=== PATIENT | female | born 1940 | race Caucasian/White ===

== ENCOUNTER 2016-07-29 09:24 | Inpatient (IN) | payer MEDICARE ==
[~2016-07-29] VITALS: Ht 157.5 cm; Wt 82.0 kg
[2016-07-29] VITALS (18 sets, daily range): BP systolic 133–245; BP diastolic 60–102; PULSE 74–90; RESP 15–24; TEMP 98.7–101.4; O2SAT 94–99
[~2016-07-29 09:24] MED LIST: ASAC400T PO; BABY81CH PO; DILT180C PO; FISH100020 PO; GLUCTAB PO; HYDR-2768 PO; LACTCAP7 PO; LISI-363 PO; LOMO2.5T PO; MEVA40TA PO; MULT-65 PO; VENTAER INH
[2016-07-29] MEDS ORDERED: LOVA20TA PO (09:50)
[2016-07-29] MEDS ORDERED: ASPI-110 PO (09:50)
[2016-07-29] MEDS ORDERED: LISI-515 PO (09:50)
[2016-07-29] MEDS ORDERED: PROP20TA3 PO (09:50)
[2016-07-29] MEDS ORDERED: METF500T PO (09:50)
[2016-07-29] MEDS ORDERED: UMEC1AER INH (09:50)
[2016-07-29] MEDS ORDERED: BACI1TAB2 (09:50)
[2016-07-29] MEDS ORDERED: VENTAER INH (09:50)
[2016-07-29] MEDS ORDERED: HYDR25TA5 PO (09:50)
[2016-07-29] MEDS ORDERED: DIPH2.5T14 PO (09:50)
[2016-07-29] MEDS ORDERED: SYMB160A INH (09:50)
[2016-07-29] MEDS ORDERED: PROCHLORPERAZINE INJ 10 MG/2 ML VIAL IVP ONE (10:00)
[2016-07-29] MEDS ORDERED: SODIUM CHLORIDE 0.9% FLUSH 10 ML FLUSH IVF PRN (10:00)
[2016-07-29] MEDS ORDERED: diphenhydrAMINE HCL 50 MG/ML VIAL IVP ONE (10:00)
[2016-07-29] MEDS ORDERED: ACETAMINOPHEN 325 MG TAB PO ONE (10:00)
[2016-07-29 10:17] LABS: AUTOMATED NEUTROPHIL # 17.1 TH/MM3 (1.8-7.7); BASOPHIL # 0.3 TH/MM3 (0-0.2); BASOPHIL % 1.6 % (0.0-2.0); EOSINOPHIL # 0.2 TH/MM3 (0-0.4); EOSINOPHIL % 0.9 % (0.0-4.0); HEMATOCRIT 45.9 % (35.0-46.0); LYMPH % 9.5 % (9.0-44.0); MEAN CELL VOLUME 84.8 FL (80.0-100.0); MEAN CORPUSCULAR HEMOGLOBIN 27.3 PG (27.0-34.0); MEAN CORPUSCULAR HGB CONC 32.2 % (32.0-36.0); MONO % 5.8 % (0.0-8.0); NEUT % 82.2 % (16.0-70.0); PLATELET COUNT 350 TH/MM3 (150-450); RED BLOOD COUNT 5.42 MIL/MM3 (4.00-5.30); WHITE BLOOD COUNT 20.8 TH/MM3 (4.0-11.0)
[2016-07-29 10:20] LABS: HEMO FLAGS DIFF FINAL
[2016-07-29 10:27] LABS: CHLORIDE 99 MEQ/L (98-107); POTASSIUM 3.7 MEQ/L (3.5-5.1); SODIUM (NA) 138 MEQ/L (136-145)
[2016-07-29 10:31] LABS: ANION GAP 11 MEQ/L (5-15); APTT (PATIENT) 22.2 SEC (24.3-30.1); PROTHROMBIN TIME - PATIENT 10.5 SEC (9.8-11.6)
[2016-07-29 10:32] LABS: BLOOD UREA NITROGEN 15 MG/DL (7-18)
[2016-07-29 10:34] LABS: ALT (GPT) 25 U/L (10-53); AST (GOT) 14 U/L (15-37)
[2016-07-29 10:35] LABS: GLOMERULAR FILTRATION RATE 81 ML/MIN (>89)
[2016-07-29 10:36] LABS: TOTAL BILIRUBIN ADULT 0.5 MG/DL (0.2-1.0)
[2016-07-29 10:37] LABS: ALKALINE PHOSPHATASE 102 U/L (45-117)
--- NOTE | 2016-07-29 11:02 | PD ---
HPI Chief Complaint: Headache Time Seen by Provider: 09:34 Travel History International Travel<30 days: No Contact w/Intl Traveler<30days: No Traveled to known affect area: No History of Present Illness HPI 76 yo F arrives from home with 2/2 decreased activity for two days of so along with severe R retroorbital headache, onset at rest with throbbing quality, patient also complains of neck pain mild. Subjective fever reported along with multiple episodes vomiting. Pain is worse with bending over and lifting. Pt has hx headaches however none for at least two years. No LOC, numbness/weakness/tingling. Pt denies photophobia/phonophobia. PFSH Past Medical History Heart Rhythm Problems: Yes (has felt a "flip-flopping" of heart in past, not enough to bring in to ED) Cancer: No Cardiac Catheterization: No Cardiovascular Problems: Yes (TACHYARRHYTHMIA) High Cholesterol: Yes (high cholesterol) Congestive Heart Failure: No Cerebrovascular Accident: Yes (NO RESIDUAL WEAKNESS) Diabetes: Yes Patient Takes Glucophage: Yes Diminished Hearing: No Endocrine: Yes Gastrointestinal Disorders: Yes (IBS) Genitourinary: No Hepatitis: No Hiatal Hernia: Yes Hypertension: Yes Immune Disorder: No Musculoskeletal: No Neurologic: Yes (STROKE HX) Psychiatric: Yes (VERY CLAUSTRAPHOBIC, ANXIETY) Reproductive: No Respiratory: Yes (ASTHMA) Thyroid Disease: No Tetanus Vaccination: > 5 Years Influenza Vaccination: Yes ?: Not LMP: RADIO RECORDER Past Surgical History AICD: No Coronary Artery Bypass Graft: No Eye Surgery: Yes (LEFT CATARACT ) Gynecologic Surgery: Yes (HYSTERECTOMY) Hysterectomy: Yes Joint Replacement: No Pacemaker: No Family History Family Myocardial Infarction: Yes (mother) Social History Alcohol Use: No Tobacco Use: No (quit "20 years ago") Substance Use: No Allergies-Medications (Allergen,Severity, Reaction): Coded Allergies: Codeine (Verified Adverse Reaction, Unknown, NAUSEA, 07/29/16) Reported Meds & Prescriptions Reported Meds & Active Scripts Active Reported Anoro Ellipta Inh (Umeclidinium/Vilanterol) 62.5-25 Mcg/Act Aero 1 Puff INH DAILY Propranolol (Propranolol HCl) 20 Mg Tab 20 Mg PO Q12HR Symbicort Inh (Budesonide/Formoterol Fumarate) 160-4.5 Mcg/Act Aero 2 Puff INH Q12HR Ventolin Hfa 18 GM Inh (Albuterol Sulfate) 90 Mcg/Act Aer 2 Puff INH Q4-6H PRN Probiotic (Bacillus Coagulans) 1 Each Tab.chew Hydrochlorothiazide 25 Mg Tab 25 Mg PO DAILY Lisinopril 20 Mg Tab 20 Mg PO BID Lovastatin 20 Mg Tab 20 Mg PO BID Aspirin 81 (Aspirin) 81 Mg Tabdr 81 Mg PO DAILY Diphenoxylate-Atropine 2.5-0.025 Mg Tab 1 Tab PO Q8HR PRN Metformin (Metformin HCl) 500 Mg Tab 500 Mg PO BIDPC With meals Review of Systems Except as stated in HPI: all other systems reviewed are Neg Physical Exam Narrative GENERAL: 76 yo F, WNWD, mild distress, normal memory and mentation SKIN: Warm and dry. HEAD: Atraumatic. Normocephalic. EYES: Pupils equal and round. No scleral icterus. No injection or drainage. ENT: No nasal bleeding or discharge. Mucous membranes pink and moist. NECK: Trachea midline. No JVD. Normal ROM of the neck. CARDIOVASCULAR: Regular rate and rhythm. RESPIRATORY: No accessory muscle use. Clear to auscultation. Breath sounds equal bilaterally. GASTROINTESTINAL: Abdomen soft, non-tender, nondistended. Hepatic and splenic margins not palpable. MUSCULOSKELETAL: Extremities without clubbing, cyanosis, or edema. No obvious deformities. NEUROLOGICAL: Awake and alert. No obvious cranial nerve deficits. Motor grossly within normal limits. Five out of 5 muscle strength in the arms and legs. Normal speech. PSYCHIATRIC: Appropriate mood and affect; insight and judgment normal. Data Data Last Documented VS Vital Signs Date Time Temp Pulse Resp B/P Pulse Ox O2 Delivery O2 Flow Rate FiO2 07/29/16 14:35 101.4 90 16 170/61 96 Nasal Cannula 2 VS reviewed Orders Complete Blood Count With Diff (07/29/16 09:47) Comprehensive Metabolic Panel (07/29/16 09:47) Westergren Sedimentation Rate (07/29/16 09:47) C-Reactive Protein (Crp) (07/29/16 09:47) Prothrombin Time / Inr (Pt) (07/29/16 09:47) Act Partial Throm Time (Ptt) (07/29/16 09:47) Csf Cell Count + Differential (07/29/16 09:47) Glucose, Csf (07/29/16 09:47) Total Protein, Csf (07/29/16 09:47) Ct Brain W/O Iv Contrast(Rout) (07/29/16 09:47) Ecg Monitoring (07/29/16 09:47) Iv Access Insert/Monitor (07/29/16 09:47) Oximetry (07/29/16 09:47) Sodium Chloride 0.9% Flush (Ns Flush) (07/29/16 10:00) Acetaminophen (Tylenol) (07/29/16 10:00) Prochlorperazine Inj (Compazine Inj) (07/29/16 10:00) Diphenhydramine Inj (Benadryl Inj) (07/29/16 10:00) Cta Brain W Iv Contrast W 3d (07/29/16 ) Cta Neck W Iv Contrast W 3d (07/29/16 ) ^ Straight Catheter (07/29/16 10:40) Urinalysis - C+S If Indicated (07/29/16 11:22) Iohexol 350 Inj (Omnipaque 350 Inj) (07/29/16 11:25) Nicardipine Inj (Cardene Inj) (07/29/16 11:30) Ceftriaxone Inj (Rocephin Inj) (07/29/16 13:00) Vancomycin Inj (Vancomycin Inj) (07/29/16 13:00) Csf Culture And Gram Stain (07/29/16 13:14) Acyclovir Inj (Zovirax Inj) (07/29/16 14:30) Blood Culture (07/29/16 14:28) Admit Order (Ed Use Only) (07/29/16 14:43) Labs Laboratory Tests Test 07/29/16 07/29/16 10:05 11:25 White Blood Count 20.8 TH/MM3 Red Blood Count 5.42 MIL/MM3 Hemoglobin 14.8 GM/DL Hematocrit 45.9 % Mean Corpuscular Volume 84.8 FL Mean Corpuscular Hemoglobin 27.3 PG Mean Corpuscular Hemoglobin 32.2 % Concent Red Cell Distribution Width 14.0 % Platelet Count 350 TH/MM3 Mean Platelet Volume 8.3 FL Neutrophils (%) (Auto) 82.2 % Lymphocytes (%) (Auto) 9.5 % Monocytes (%) (Auto) 5.8 % Eosinophils (%) (Auto) 0.9 % Basophils (%) (Auto) 1.6 % Neutrophils # (Auto) 17.1 TH/MM3 Lymphocytes # (Auto) 2.0 TH/MM3 Monocytes # (Auto) 1.2 TH/MM3 Eosinophils # (Auto) 0.2 TH/MM3 Basophils # (Auto) 0.3 TH/MM3 CBC Comment DIFF FINAL Differential Comment Erythrocyte Sedimentation Rate 4 mm/hr Prothrombin Time 10.5 SEC Prothromb Time International 1.0 RATIO Ratio Activated Partial 22.2 SEC Thromboplast Time Sodium Level 138 MEQ/L Potassium Level 3.7 MEQ/L Chloride Level 99 MEQ/L Carbon Dioxide Level 28.0 MEQ/L Anion Gap 11 MEQ/L Blood Urea Nitrogen 15 MG/DL Creatinine 0.70 MG/DL Estimat Glomerular Filtration 81 ML/MIN Rate Random Glucose 174 MG/DL Calcium Level 9.4 MG/DL Total Bilirubin 0.5 MG/DL Aspartate Amino Transf 14 U/L (AST/SGOT) Alanine Aminotransferase 25 U/L (ALT/SGPT) Alkaline Phosphatase 102 U/L C-Reactive Protein 0.29 MG/DL Total Protein 7.6 GM/DL Albumin 4.0 GM/DL Urine Collection Type CATH Urine Color YELLOW Urine Turbidity CLEAR Urine pH 6.5 Urine Specific [place] 1.010 Urine Protein NEG mg/dL Urine Glucose (UA) NEG mg/dL Urine Ketones TRACE mg/dL Urine Occult Blood SMALL Urine Nitrite NEG Urine Bilirubin NEG Urine Leukocyte Esterase NEG Urine RBC 4-9 /hpf Urine WBC 0-2 /hpf Microscopic Urinalysis Comment CATH-CULT NOT IND Urine Collection Time 11:25 MDM Medical Decision Making Medical Screen Exam Complete: Yes Emergency Medical Condition: Yes Medical Record Reviewed: Yes Differential Diagnosis Migraine, dehydration, sepsis, meningitis, ICH, aneurysm, UTI Narrative Course CBC & BMP Diagram 07/29/16 10:05 Neutrophils 82% ESR 4 LFTs normal CRP 0.29 INR 1.0 UA: no UTI Last [address] 07/29/16 0947 Signed Impressions: Service Date/Time: Friday, July 29, 2016 10:51 - CONCLUSION: No acute intracranial findings. Juan Jose Kessler MD Neck CTA 07/29/16 0000 Signed Impressions: Service Date/Time: Friday, July 29, 2016 10:56 - CONCLUSION: 1. Diffuse atherosclerotic disease. 2. Moderate grade stenosis of the left internal carotid artery at the carotid bulb and mild stenosis of the right internal carotid artery at the carotid bulb. 3. Right internal carotid artery courses medially into the submucosal region of the retropharyngeal soft tissues. Juan Jose Kessler MD Head CTA 07/29/16 0000 Signed Impressions: Service Date/Time: Friday, July 29, 2016 10:56 - CONCLUSION: Brain CTA within normal limits. Juan Jose Kessler MD Rocephin and vancomycin acyclovir started. Blood cultures obtained. A lumbar puncture was attempted multiple times unsuccessfully. Invasive radiology was notified and they will perform one today. Case discussed with Dr. Duff of infectious disease. Case discussed with Dr. De Jesus and Dr. Lynos for [facility]. Pt will be placed in IMC. Fever measured at approx 245pm, 101.4 rectal. Tylenol ordered. 1516 HR 88, RR 16, 156/79, answers questions and follows commands Critical Care Narrative Aggregate critical care time was 50 minutes. Time to perform other separately billable procedures was not included in the critical care time. My time did not include minutes spent treating any other patients simultaneously or on activities that did not directly contribute to the patient's treatment. The services I provided to this patient were to treat and/or prevent clinically significant deterioration that could result in: Permanent neurologic injury, multiorgan failure I provided critical care services requiring my management, as noted below: Chart data review, documentation time, medication orders and management, vital sign assessments/reviewing monitor data, ordering and reviewing lab tests, ordering and interpreting/reviewing x-rays and diagnostic studies, care of the patient and discussion of the patient with the admitting physicians. Diagnosis Primary Impression: MORELAND (headache) Qualified Code: R51 - Nonintractable headache, unspecified chronicity pattern , unspecified headache type Additional Impressions: Altered mental status Qualified Code: R41.82 - Altered mental status, unspecified altered mental status type Fever Qualified Code: R50.9 - Fever, unspecified fever cause Admitting Information Admitting Physician Requests: Timoteo Colin MD Jul 29, 2016 11:02
[2016-07-29] MEDS ORDERED: IOHEXOL 350 MG/ML 10 ML VIAL (for RAD DIAG) IV ONE (11:25)
[2016-07-29 11:30] LABS: BLOOD, URINE SMALL (NEG); GLUCOSE,URINE NEG (NEG); KETONE, URINE TRACE mg/dL (NEG); NITRITE,URINE NEG (NEG); PH, URINE 6.5 (5.0-8.5)
[2016-07-29 11:34] LABS: COMMENT (UR) CATH-CULT NOT IND; CULTURE IF INDICATED CATH CULTURE NOT IND; METHOD OF COLLECTION CATH; URINE COLOR YELLOW (YELLW/STRAW); WBC, URINE 0-2 /hpf (0-5)
--- NOTE | 2016-07-29 11:45 | RADHPO ---
EXAM DATE/TIME: 07/29/2016 10:51 [facility] COMPARISON: No previous studies available for comparison. INDICATIONS : Throbbing headache. RADIATION DOSE: 35.16 CTDIvol (mGy) MEDICAL HISTORY : Cardiovascular disease. Hypercholesterolemia. Asthma, TIA SURGICAL HISTORY : Hysterectomy. ENCOUNTER: Initial ACUITY: 2 days PAIN SCALE: Non-responsive LOCATION: cranial TECHNIQUE: Multiple contiguous axial images were obtained of the head. Using automated exposure control and adj ustment of the mA and/or kV according to patient size, radiation dose was kept as low as reasonably a chievable to obtain optimal diagnostic quality images. FINDINGS: CEREBRUM: Periventricular white matter hypodensity indicating chronic ischemic change. The ventricles are octavio l for age. No evidence of midline shift, mass lesion, hemorrhage or acute infarction. No extra-axia l fluid collections are seen. POSTERIOR FOSSA: The cerebellum and brainstem are intact. The 4th ventricle is midline. The cerebellopontine angle i s unremarkable. EXTRACRANIAL: The visualized portion of the orbits is intact. SKULL: The calvaria is intact. No evidence of skull fracture. CONCLUSION: No acute intracranial findings. Juan Jose Kessler MD on July 29, 2016 at 11:42 Board Certified Radiologist. This report was verified electronically.
[2016-07-29] MEDS: niCARdipine INJ 25 MG in SODIUM CHLOR 0.9% 250 ML INJ 250 ML IV SCH ×2 (11:50→23:09)
--- NOTE | 2016-07-29 12:12 | RADHPO ---
EXAM DATE/TIME: 07/29/2016 10:56 [facility] COMPARISON: No previous studies available for comparison. INDICATIONS : Throbbing headache for 2 days with nausea. IV CONTRAST: 99 cc Omnipaque 350 (iohexol) IV ; Cumulative dose for multiple exams. RADIATION DOSE: 43.07 CTDIvol (mGy) ; Combined studies MEDICAL HISTORY : Hypercholesterolemia. Cardiovascular disease Asthma, TIA SURGICAL HISTORY : Hysterectomy. ENCOUNTER: Initial ACUITY: 2 days PAIN SCALE: Non-responsive LOCATION: cranial TECHNIQUE: Volumetric scanning was performed using a multi-row detector CT scanner. The data was post processed with a variety of visualization algorithms including full volume maximum intensity projection, multi -planar sliding thin slab reformation, curved planar reformation, and surface rendering techniques. Using automated exposure control and adjustment of the mA and/or kV according to patient size, radiat ion dose was kept as low as reasonably achievable to obtain optimal diagnostic quality images. FINDINGS: There is excellent visualization of the major intracranial arteries out to the second-order branch ve ssels. There is no evidence for aneurysm, vessel truncation or stenosis, and no evidence for vascula r malformation. CONCLUSION: Brain CTA within normal limits. Juan Jose Kessler MD on July 29, 2016 at 12:08 Board Certified Radiologist. This report was verified electronically.
[2016-07-29] MEDS ORDERED: VANCOMYCIN INJ 1,750 MG in SODIUM CHLORID 0.9% 500 ML INJ 500 ML IV ONE (13:00)
[2016-07-29] MEDS ORDERED: cefTRIAXone INJ 2,000 MG in SODIUM CHLORIDE 0.9% INJ 100 ML IV ONE (13:00)
--- NOTE | 2016-07-29 13:15 | RADHPO ---
EXAM DATE/TIME: 07/29/2016 10:56 [facility] COMPARISON: No previous studies available for comparison. INDICATIONS : Throbbing headache with nausea for 2 days IV CONTRAST: 99 cc Omnipaque 350 (iohexol) IV ; Cumulative dose for multiple exams. RADIATION DOSE: 43.07 CTDIvol (mGy) ; Combined studies MEDICAL HISTORY : Hypercholesterolemia. Cardiovascular disease Asthma, TIA SURGICAL HISTORY : Hysterectomy. ENCOUNTER: Initial ACUITY: 2 days PAIN SCALE: Non-responsive LOCATION: Bilateral cranial Elevated flow velocities and ICA/CCA ratios have been found to correlate with increased degrees of vessel stenosis, calculated as percentage of diameter relative to a normal segment of distal ICA/CCA. TECHNIQUE: Volumetric scanning was performed using a multirow detector CT scanner. The data was post processed with a variety of visualization algorithms including full-volume maximum intensity projection, multip lanar sliding thin-slab reformation, curved-planar reformation, and surface-rendering techniques. Us ing automated exposure control and adjustment of the mA and/or kV according to patient size, radiatio n dose was kept as low as reasonably achievable to obtain optimal diagnostic quality images. FINDINGS: AORTIC ARCH: Diffuse atherosclerotic disease of the aortic arch. No high-grade stenosis. RIGHT CAROTID: Calcified plaque at the right carotid bulb resulting in mild stenosis measuring approximately 30%. Ot herwise widely patent. The right internal carotid artery is tortuous and extends medially into the aviles perficial retropharyngeal soft tissues. LEFT CAROTID: Calcified plaque at the left carotid bulb resulting in moderate grade stenosis of the proximal internet researcher al carotid artery measuring approximately 50-60%. VERTEBRALS: The vertebral arteries have a symmetric diameter. No stenotic lesions are seen. CONCLUSION: 1. Diffuse atherosclerotic disease. 2. Moderate grade stenosis of the left internal carotid artery at the carotid bulb and mild stenosis of the right internal carotid artery at the carotid bulb. 3. Right internal carotid artery courses medially into the submucosal region of the retropharyngeal s oft tissues. Juan Jose Kessler MD on July 29, 2016 at 13:04 Board Certified Radiologist. This report was verified electronically.
[2016-07-29] MEDS ORDERED: ACYCLOVIR INJ 800 MG in SODIUM CHLORIDE 0.9% INJ 150 ML IV ONE (14:30)
[2016-07-29] MEDS ORDERED: ACETAMINOPHEN 650 MG SUPP RECTAL ONE (15:15)
--- NOTE | 2016-07-29 18:14 | HHI.HP ---
HPI Service [facility] Hospitalists Primary Care Physician Marques لاعلي MD Admission Diagnosis MORELAND, AMS Chief Complaint: MORELAND/fever/AMS Travel History International Travel<30 Days: No Contact w/Intl Traveler <30 Da: No Traveled to Known Affected Are: No History of Present Illness Pt is 76 yo dm/htn/copd. Presented with 1 day hx of "sinus/cold sx's", fever, right retroorbital h/a, vomiting, and intermittent confusion/lethargy. She presented to [place] ED with fever, leukocytosis. CT imaging negative for bleed. ED spoke to ID and advised LP..Failed attempts at P.O. ED but emperic antibiotics/antivirals given, cardene gtt initiated...pt transferred here for LP today with IR. ...currently pt more awake/alert than described to me by ED...?abx Review of Systems Other right retroorbital h/a vomiting confusion fever sinus congestion Past Family Social History Past Medical History htn dm copd remote cva Reported Medications Anoro Ellipta Inh (Umeclidinium/Vilanterol) 62.5-25 Mcg/Act Aero 1 Puff INH DAILY Propranolol (Propranolol HCl) 20 Mg Tab 20 Mg PO Q12HR Ventolin Hfa 18 GM Inh (Albuterol Sulfate) 90 Mcg/Act Aer 2 Puff INH Q4-6H PRN Probiotic (Bacillus Coagulans) 1 Each Tab.chew Hydrochlorothiazide 25 Mg Tab 25 Mg PO DAILY Lisinopril 20 Mg Tab 20 Mg PO BID Lovastatin 20 Mg Tab 20 Mg PO BID Aspirin 81 (Aspirin) 81 Mg Tabdr 81 Mg PO DAILY Diphenoxylate-Atropine 2.5-0.025 Mg Tab 1 Tab PO Q8HR PRN Metformin (Metformin HCl) 500 Mg Tab 500 Mg PO BIDPC With meals Allergies: Coded Allergies: Codeine (Verified Adverse Reaction, Unknown, NAUSEA, 07/29/16) Physical Exam Vital Signs currently oriented neck supple no photophobia heart reg lung cta abd s/nt ext no edema doug carotid bruit Vital Signs Date Time Temp Pulse Resp B/P Pulse Ox O2 Delivery O2 Flow Rate FiO2 07/29/16 17:12 89 16 156/64 96 Nasal Cannula 2 07/29/16 16:15 16 07/29/16 16:15 100.0 88 16 164/72 96 Nasal Cannula 2 07/29/16 15:16 88 16 156/79 97 Nasal Cannula 2 07/29/16 14:35 101.4 90 16 170/61 96 Nasal Cannula 2 07/29/16 13:41 89 16 166/60 96 Nasal Cannula 2 07/29/16 12:51 90 16 170/61 96 Nasal Cannula 2 07/29/16 12:23 86 18 159/73 95 Nasal Cannula 2 07/29/16 12:05 18 175/76 96 Nasal Cannula 2 07/29/16 11:30 81 16 245/102 97 Nasal Cannula 2 07/29/16 11:23 16 07/29/16 10:47 16 95 Nasal Cannula 2 07/29/16 10:32 84 18 142/102 94 Room Air 07/29/16 10:24 18 94 Room Air 07/29/16 09:26 98.7 74 15 133/100 99 Laboratory Laboratory Tests Test 07/29/16 07/29/16 10:05 11:25 White Blood Count 20.8 Red Blood Count 5.42 Hemoglobin 14.8 Hematocrit 45.9 Mean Corpuscular Volume 84.8 Mean Corpuscular Hemoglobin 27.3 Mean Corpuscular Hemoglobin 32.2 Concent Red Cell Distribution Width 14.0 Platelet Count 350 Mean Platelet Volume 8.3 Neutrophils (%) (Auto) 82.2 Lymphocytes (%) (Auto) 9.5 Monocytes (%) (Auto) 5.8 Eosinophils (%) (Auto) 0.9 Basophils (%) (Auto) 1.6 Neutrophils # (Auto) 17.1 Lymphocytes # (Auto) 2.0 Monocytes # (Auto) 1.2 Eosinophils # (Auto) 0.2 Basophils # (Auto) 0.3 CBC Comment DIFF FINAL Differential Comment Erythrocyte Sedimentation Rate 4 Prothrombin Time 10.5 Prothromb Time International 1.0 Ratio Activated Partial 22.2 Thromboplast Time Sodium Level 138 Potassium Level 3.7 Chloride Level 99 Carbon Dioxide Level 28.0 Anion Gap 11 Blood Urea Nitrogen 15 Creatinine 0.70 Estimat Glomerular Filtration 81 Rate Random Glucose 174 Calcium Level 9.4 Total Bilirubin 0.5 Aspartate Amino Transf 14 (AST/SGOT) Alanine Aminotransferase 25 (ALT/SGPT) Alkaline Phosphatase 102 C-Reactive Protein 0.29 Total Protein 7.6 Albumin 4.0 Urine Collection Type CATH Urine Color YELLOW Urine Turbidity CLEAR Urine pH 6.5 Urine Specific [place] 1.010 Urine Protein NEG Urine Glucose (UA) NEG Urine Ketones TRACE Urine Occult Blood SMALL Urine Nitrite NEG Urine Bilirubin NEG Urine Leukocyte Esterase NEG Urine RBC 4-9 Urine WBC 0-2 Microscopic Urinalysis Comment CATH-CULT NOT IND Urine Collection Time 11:25 Date/Time Procedure Status Source Growth 07/29/16 14:40 Aerobic Blood Culture Received Blood Peripheral Pending 07/29/16 14:40 Anaerobic Blood Culture Received Blood Peripheral Pending Result Diagram: 07/29/16 1005 07/29/16 1005 Assessment and Plan Problem List: (1) Fever Status: Acute Plan: Pt is 76 yo dm/htn/copd. Presented with 1 day hx of "sinus/cold sx's", fever, right retroorbital h/a, vomiting, and intermittent confusion/lethargy. She presented to [place] ED with fever, leukocytosis. CT imaging negative for bleed. ED spoke to ID and advised LP..Failed attempts at P.O. ED but emperic antibiotics/antivirals given, cardene gtt initiated...pt transfer here for LP today with IR. carotid dz noted. ...currently pt more awake/alert than described to me by ED...?abx consult neuro/ID telemetry LP by IR. send for gs/cx,cell count/diff,hsv pcr, cryptococcal ag, opening pressure, glucose,protein. wean cardene drip to off. home po meds resumed and prn ordered dvt prophylaxis cont home meds as appropriate. (2) Altered mental status Status: Acute Plan: see above (3) MORELAND (headache) Status: Acute Plan: see above (4) HTN (hypertension) Status: Acute Plan: see above (5) DM (diabetes mellitus) Status: Chronic Plan: ssi. hold oha (6) COPD (chronic obstructive pulmonary disease) Status: Chronic Plan: home inhaler. willy prn Physician Certification 2 Midnight Certification Type: Admission for Inpatient Services Order for Inpatient Services 3The services are ordered in accordance with Medicare regulations or non- Medicare payer requirements, as applicable. In the case of services not specified as inpatient-only, they are appropriately provided as inpatient services in accordance with the 2-midnight benchmark. Estimated LOS (days): 3 3 days is the estimated time the patient will need to remain in the hospital, assuming treatment plan goals are met and no additional complications. Post-Hospital Plan: Home Problem Qualifiers (1) Fever: Qualified Code: R50.9 - Fever, unspecified fever cause (2) Altered mental status: Qualified Code: R41.82 - Altered mental status, unspecified altered mental status type (3) MORELAND (headache): Qualified Code: R51 - Nonintractable headache, unspecified chronicity pattern, unspecified headache type Marlo Lyons MD Jul 29, 2016 18:14
[2016-07-29] MEDS ORDERED: ONDANSETRON HCL 4 MG/2 ML VIAL IV PUSH PRN (18:15)
[2016-07-29] MEDS ORDERED: ACETAMINOPHEN 325 MG TAB PO PRN (18:15)
[2016-07-29] MEDS ORDERED: RESP: ALBUTEROL 2.5 MG/IPRATROPIUM 0.5 MG NEB (PRN) NEB (18:30)
--- NOTE | 2016-07-29 19:31 | PD.RAD ---
Post Procedure Progress Note Pre Procedure Diagnosis: (1) Altered mental status Post Procedure Diagnosis: (1) Altered mental status Procedure Date: Jul 29, 2016 Supervising Radiologist: Otoniel Falcon JR Proceduralist/Assist: Ira Jenkins RT(R), Susanne Lacy RT(R)(CV) Anesthesia: Local Plan of Activity Patient to Unit: Nursing Unit Patient Condition: Good See PACS Report for procedural detail/treatment Spinal Procedure Lumbar Puncture L2-L3 Fluid Removal (CCs): 11 Fluid Description: Clear Puncture Time: 19:22 Findings: Opening pressure: 10 cmH20 Jr. Ezekiel,Otoniel Preciado MD Jul 29, 2016 19:31
--- NOTE | 2016-07-29 19:48 | RADRPT ---
EXAM DATE/TIME: 07/29/2016 19:33 [facility] COMPARISON: No previous studies available for comparison. INDICATIONS : AMS.Headaches MEDICAL HISTORY : 1.Hx of stroke no residuals 2. headache 3.Hiatal hernia 4. HTN 5. ASTHMA SURGICAL HISTORY : 1. Cataract 2. Hysterectomy ENCOUNTER: Initial ACUITY: 2 days PAIN SCORE: 0/10 LUMBAR PUNCTURE TIME: 1922 hours FLUORO TIME: 1.6 minutes 0 ACCESS LEVEL: L2-3 OPENING PRESSURE: 10cm of water Not requested. FLUID: 11 cc of clear CSF was collected and sent to the laboratory for analysis. PROCEDURE : 1. Fluoroscopic guided lumbar puncture. 2. Recording of opening pressure. The risks, benefits and alternatives to the procedure were explained and verbal and written consent w as obtained. The site was prepped in sterile fashion. Full sterile technique was used, including ca p, mask, sterile gloves and gown and a large sterile sheet. Hand hygiene and 2% chlorhexidine and/or betadine/alcohol prep was utilized per protocol for cutaneous antisepsis. The skin and subcutaneous tissues were infiltrated with local anesthetic solution. With fluoroscopic guidance the lumbar thecal sac was punctured at the above level described above and the opening pressure was recorded. The above described fluid was removed without difficulty. The patient tolerated the procedure well and there were no complications. CONCLUSION: Uncomplicated fluoroscopically guided lumbar puncture with pressures as above. Otoniel Falcon Jr., MD on July 29, 2016 at 19:46 Board Certified Radiologist. This report was verified electronically.
[2016-07-29] MEDS: INSULIN ASPART SUPPLEMENTAL SCALE SQ SCH (21:00)
[2016-07-29] MEDS: PROPRANOLOL HCL 20 MG TAB PO SCH (21:23)
[2016-07-29] MEDS: LISINOPRIL 20 MG TAB PO SCH (21:23)
[2016-07-29] MEDS: PRAVASTATIN SOD 20 MG TAB PO SCH (21:23)
[2016-07-29] MEDS ORDERED: Vancomycin Consult Pharmacy 1 EA OTHER SCH (21:30)
[2016-07-29 21:40] LABS: CSF LYMPHOCYTES 19 %; CSF MONOCYTES 7 %; CSF NEUTROPHILS 74 %; GROSS BLOOD TUBE #1 0 (0); GROSS BLOOD TUBE #2 0 (0); GROSS BLOOD TUBE #3 0 (0); GROSS BLOOD TUBE #4 0 (0); SUPERNATE COLOR TUBE #1 CLEAR (CLEAR); SUPERNATE COLOR TUBE #2 CLEAR (CLEAR); SUPERNATE COLOR TUBE #3 CLEAR (CLEAR); SUPERNATE COLOR TUBE #4 CLEAR (CLEAR); VOLUME TUBE # 3 2.5 ML; WBC TUBE #4 4 /MM3 (0-10)
[2016-07-30] VITALS (13 sets, daily range): BP systolic 98–145; BP diastolic 50–71; PULSE 53–65; RESP 15–35; TEMP 97.7–99.2; O2SAT 90–98
[2016-07-30] MEDS ORDERED: cefTRIAXone INJ 2,000 MG in SODIUM CHLORIDE 0.9% INJ 100 ML IV SCH (02:00)
[2016-07-30] MEDS ORDERED: CHLORHEXIDINE GLUCONATE 2 % 1 PACK (2 CLOTHS)(extra cloths) TOPICAL PRN (05:15)
[2016-07-30 06:32] LABS: BASOPHIL % 0.2 % (0.0-2.0); EOSINOPHIL % 0.2 % (0.0-4.0); HEMATOCRIT 39.4 % (35.0-46.0); HEMO FLAGS DIFF FINAL; LYMPH % 17.7 % (9.0-44.0); LYMPHOCYTE # 2.8 TH/MM3 (1.0-4.8); MEAN CELL VOLUME 84.4 FL (80.0-100.0); MEAN CORPUSCULAR HEMOGLOBIN 27.4 PG (27.0-34.0); MEAN CORPUSCULAR HGB CONC 32.5 % (32.0-36.0); MONO % 11.1 % (0.0-8.0); NEUT % 70.8 % (16.0-70.0); PLATELET COUNT 285 TH/MM3 (150-450); RED BLOOD COUNT 4.67 MIL/MM3 (4.00-5.30); RED CELL DISTRIBUTION WIDTH 14.6 % (11.6-17.2); WHITE BLOOD COUNT 15.6 TH/MM3 (4.0-11.0)
[2016-07-30 06:57] LABS: POTASSIUM 3.4 MEQ/L (3.5-5.1)
[2016-07-30] MEDS: INSULIN ASPART SUPPLEMENTAL SCALE SQ SCH ×4 (07:00→20:05)
[2016-07-30] MEDS: LISINOPRIL 20 MG TAB PO SCH ×2 (08:03→20:04)
[2016-07-30] MEDS: UMECLIDINIUM 62.5 MCG/VILANTEROL 25 MCG INHALER INH SCH (08:03)
[2016-07-30] MEDS: PROPRANOLOL HCL 20 MG TAB PO SCH ×2 (08:04→20:04)
[2016-07-30] MEDS: PRAVASTATIN SOD 20 MG TAB PO SCH ×2 (08:04→20:05)
[2016-07-30] MEDS ORDERED: POTASSIUM CHLORIDE 20 MEQ CONTROLLED RELEASE TAB PO ONE (08:45)
--- NOTE | 2016-07-30 08:53 | HHI.PR ---
Subjective Remarks alert and oriented says she had pain in right nare and pain behind right eye before coming to ED. no sinus drainage or sore throat. Objective Vitals lethargy resolved neck supple carotid bruit doug heart reg lung cta abd s/nt ext no edema Vital Signs Date Time Temp Pulse Resp B/P Pulse Ox O2 Delivery O2 Flow Rate FiO2 07/30/16 07:32 97 Nasal Cannula 2.00 07/30/16 06:00 56 07/30/16 04:00 99.1 58 15 101/51 97 07/30/16 04:00 58 07/30/16 02:00 62 07/30/16 00:00 99.2 61 35 107/50 98 07/30/16 00:00 61 07/29/16 22:00 77 07/29/16 20:05 96 Nasal Cannula 2.00 07/29/16 20:00 86 07/29/16 20:00 98.8 86 24 149/70 95 07/29/16 19:00 85 18 152/80 99 07/29/16 18:00 99.3 90 20 139/77 96 07/29/16 18:00 88 07/29/16 17:12 89 16 156/64 96 Nasal Cannula 2 07/29/16 16:15 16 07/29/16 16:15 100.0 88 16 164/72 96 Nasal Cannula 2 07/29/16 15:16 88 16 156/79 97 Nasal Cannula 2 07/29/16 14:35 101.4 90 16 170/61 96 Nasal Cannula 2 07/29/16 13:41 89 16 166/60 96 Nasal Cannula 2 07/29/16 12:51 90 16 170/61 96 Nasal Cannula 2 07/29/16 12:23 86 18 159/73 95 Nasal Cannula 2 07/29/16 12:05 18 175/76 96 Nasal Cannula 2 07/29/16 11:30 81 16 245/102 97 Nasal Cannula 2 07/29/16 11:23 16 07/29/16 10:47 16 95 Nasal Cannula 2 07/29/16 10:32 84 18 142/102 94 Room Air 07/29/16 10:24 18 94 Room Air 07/29/16 09:26 98.7 74 15 133/100 99 07/29/16 07/29/16 07/30/16 15:00 23:00 07:00 Intake Total 100 ml 687 ml 182 ml Output Total 125 ml Balance 100 ml 562 ml 182 ml Intake Oral 100 ml IV Total 100 ml 587 ml 182 ml Output Urine Total 125 ml # Bowel Movements 1 Result Diagram: 07/30/16 0502 07/30/16 0502 A/P Problem List: (1) Fever Status: Acute Plan: Pt is 76 yo dm/htn/copd. Presented with 1 day hx of "sinus/cold sx's", fever, right retroorbital h/a, vomiting, and intermittent confusion/lethargy. She presented to [facility] ED with fever, leukocytosis. CT imaging negative for bleed. ED spoke to ID and advised LP..Failed attempts at P.O. ED but emperic antibiotics/antivirals given, cardene gtt initiated...pt transfer here for LP with IR. carotid dz noted. ...currently pt more awake/alert than described to me by ED...?abx consulted neuro/ID... on broad abx. ?aseptic meningitis. if cx neg then probably d/c abx soon. ...await ID reccs.s/p LP by IR 07/29..fu pending studies telemetry transfer to med/surg if able to wean off cardene gtt dvt prophylaxis cont home meds as appropriate. (2) Altered mental status Status: Acute Plan: see above (3) MORELAND (headache) Status: Acute Plan: see above (4) HTN (hypertension) Status: Acute Plan: see above (5) DM (diabetes mellitus) Status: Chronic Plan: ssi. hold oha (6) COPD (chronic obstructive pulmonary disease) Status: Chronic Plan: home inhaler. duonebs prn Problem Qualifiers (1) Fever: Qualified Code: R50.9 - Fever, unspecified fever cause (2) Altered mental status: Qualified Code: R41.82 - Altered mental status, unspecified altered mental status type (3) MORELAND (headache): Qualified Code: R51 - Nonintractable headache, unspecified chronicity pattern, unspecified headache type Marlo Lyons MD Jul 30, 2016 08:52
--- NOTE | 2016-07-30 11:06 | PD.ID.CON ---
History of Present Illness Service ID Consult Requested By Reason for Consult Evaluation and Mment of possible meningitis. Primary Care Physician Marques العلي MD Diagnoses: History of Present Illness Ms. Avila is a 76-year-old female with past medical history significant for hiatal hernia, prior history of headaches, irritable bowel syndrome, tachyarrhythmia, anxiety as well as possible history of stroke. Patient lives at home with her and was brought into the emergency department for decreased activity for the last 2 days due to severe retro- orbital headache which was present at rest throbbing in quality associated with mild neck pain. She denies any visual complaints like floating objects, blurry vision or double vision. She reports subjective fever of MAXIMUM TEMPERATURE 100.2 along with multiple episodes of vomiting. Pain is worse with bending forward. Patient does endorse a history of headaches but hasn't had any headaches for the last 2 years. No history of loss of consciousness, numbness weakness tingling of any upper extremities or lower extremities. Patient denies any photophobia or phonophobia. Patient endorses a history of sinus problems off and on. Patient also reports that she had an EGD and colonoscopy including a gallbladder workup recently approximately 4 weeks back and was told everything was normal except that she had a hiatal hernia and ? GERD. Upon review of moderate I do not see any medications for GERD or hiatal hernia and I discussed this with Dr. Norris the primary hospitalist. Upon admission patient underwent a possible sepsis workup including blood cultures and urine studies. Urine studies are not suggestive of an urinary tract infection. A lumbar puncture was done which shows mild elevation in protein but cell count as well as glucose are within normal limits. I called micro-and CSF shows no growth so far. Patient was started on empiric antibiotics for meningitis, including acyclovir for possible herpes meningitis. Infectious disease is consulted for evaluation and management of possible meningitis. Review of Systems Constitutional: COMPLAINS OF: Fever, DENIES: Diaphoretic episodes, Fatigue, Weight gain, Weight loss, Chills, Dizziness, Change in appetite, Night Sweats Endocrine: DENIES: Abnorml menstrual pattern, Heat/cold intolerance, Polydipsia , Polyuria, Polyphagia Eyes: DENIES: Blurred vision, Diplopia, Eye inflammation, Eye pain, Vision loss , Photosensitivity, Double Vision Ears, nose, mouth, throat: DENIES: Tinnitus, Hearing loss, Vertigo, Nasal discharge, Oral lesions, Throat pain, Hoarseness, Ear Pain, Running Nose, Epistaxis, Sinus Pain, Toothache, Odynophagia Respiratory: DENIES: Apneas, Cough, Snoring, Wheezing, Hemoptysis, Sputum production, Shortness of breath Cardiovascular: DENIES: Chest pain, Palpitations, Syncope, Dyspnea on Exertion , PND, Lower Extremity Edema, Orthopnea, Claudication Gastrointestinal: DENIES: Abdominal pain, Black stools, Bloody stools, Constipation, Diarrhea, Nausea, Vomiting, Difficulty Swallowing, Anorexia Genitourinary: DENIES: Abnormal vaginal bleeding, Dysmenorrhea, Dyspareunia, Sexual dysfunction, Urinary frequency, Urinary incontinence, Urgency, Hematuria , Dysuria, Nocturia, Vaginal discharge Musculoskeletal: COMPLAINS OF: Neck pain, DENIES: Joint pain, Muscle aches, Stiffness, Joint Swelling, Back pain Integumentary: DENIES: Abnormal pigmentation, Pruritus, Rash, Nail changes, Breast masses, Breast skin changes, Nipple discharge Hematologic/lymphatic: DENIES: Bruising, Lymphadenopathy Immunologic/allergic: DENIES: Eczema, Urticaria Neurologic: COMPLAINS OF: Headache, DENIES: Abnormal gait, Localized weakness , Paresthesias, Seizures, Speech Problems, Tremor, Poor Balance Psychiatric: COMPLAINS OF: Anxiety, DENIES: Confusion, Mood changes, Depression, Hallucinations, Agitation, Suicidal Ideation, Homicidal Ideation, Delusions Except as stated in HPI: all other systems reviewed are Neg Past Family Social History Allergies: Coded Allergies: Codeine (Verified Adverse Reaction, Unknown, NAUSEA, 07/29/16) Past Medical History Hiatal hernia Tachyarrhythmia Hypercholesterolemia Possible history of stroke in the past. Diabetes Hypertension Irritable bowel syndrome Tetanus Vaccination: > 5 Years Influenza Vaccination: Yes Past Surgical History Bilateral cataract surgery possible intraocular lens implants E Dr. Whitley Hysterectomy Reported Medications Reported Meds & Active Scripts Active Reported Anoro Ellipta Inh (Umeclidinium/Vilanterol) 62.5-25 Mcg/Act Aero 1 Puff INH DAILY Propranolol (Propranolol HCl) 20 Mg Tab 20 Mg PO Q12HR Ventolin Hfa 18 GM Inh (Albuterol Sulfate) 90 Mcg/Act Aer 2 Puff INH Q4-6H PRN Probiotic (Bacillus Coagulans) 1 Each Tab.chew Hydrochlorothiazide 25 Mg Tab 25 Mg PO DAILY Lisinopril 20 Mg Tab 20 Mg PO BID Lovastatin 20 Mg Tab 20 Mg PO BID Aspirin 81 (Aspirin) 81 Mg Tabdr 81 Mg PO DAILY Diphenoxylate-Atropine 2.5-0.025 Mg Tab 1 Tab PO Q8HR PRN Metformin (Metformin HCl) 500 Mg Tab 500 Mg PO BIDPC With meals Active Ordered Medications Current Medications Medications (Trade) Dose Ordered Sig/Reece Route Start Time Stop Time Status Last Admin Sodium Chloride 2 ml 2 ml UNSCH PRN IVF 07/29/16 10:00 (Cardene Inj/NS 250 ml Inj) 260 ml @ 0 mls/hr TITRATE IV 07/29/16 11:30 07/29/16 23:09 (Zofran Inj) 4 mg Q4H PRN IV PUSH 07/29/16 18:15 (Tylenol) 650 mg Q4H PRN PO 07/29/16 18:15 (Vasotec Inj) 1.25 mg Q4H PRN IV PUSH 07/29/16 18:15 (Catapres) 0.1 mg Q4H PRN PO 07/29/16 18:15 (Lomotil Tab) 1 tab Q8H PRN PO 07/29/16 18:15 (Prinivil) 20 mg BID PO 07/29/16 21:00 07/30/16 08:03 (Pravachol) 20 mg BID PO 07/29/16 21:00 07/30/16 08:04 (Inderal) 20 mg Q12HR PO 07/29/16 21:00 07/30/16 08:04 Miscellaneous Information Patient in critical care unit? Ass... Q361D .XX 07/30/16 05:15 07/30/16 05:15 (Chlorhexidine 2% Cloth) 3 pack DAILY@04 TOPICAL 07/31/16 04:00 08/04/16 04:01 (Chlorhexidine 2% Cloth) 3 pack UNSCH PRN TOPICAL 07/30/16 05:15 08/04/16 05:01 Miscellaneous Information SPECIFIC LAB TO BE DRAWN:[facility] TROUGH DATE... ONCE ONCE .XX 08/01/16 13:45 08/01/16 13:46 Family History DE Social History Alcohol Use: No Tobacco Use: No (quit "20 years ago") Substance Use: No Physical Exam Vital Signs Vital Signs Date Time Temp Pulse Resp B/P Pulse Ox O2 Delivery O2 Flow Rate FiO2 07/30/16 10:00 53 07/30/16 08:00 54 07/30/16 08:00 98.1 54 19 98/54 93 07/30/16 07:32 97 Nasal Cannula 2.00 07/30/16 06:00 56 07/30/16 04:00 99.1 58 15 101/51 97 07/30/16 04:00 58 07/30/16 02:00 62 07/30/16 00:00 99.2 61 35 107/50 98 07/30/16 00:00 61 07/29/16 22:00 77 07/29/16 20:05 96 Nasal Cannula 2.00 07/29/16 20:00 86 07/29/16 20:00 98.8 86 24 149/70 95 07/29/16 19:00 85 18 152/80 99 07/29/16 18:00 99.3 90 20 139/77 96 07/29/16 18:00 88 07/29/16 17:12 89 16 156/64 96 Nasal Cannula 2 07/29/16 16:15 16 07/29/16 16:15 100.0 88 16 164/72 96 Nasal Cannula 2 07/29/16 15:16 88 16 156/79 97 Nasal Cannula 2 07/29/16 14:35 101.4 90 16 170/61 96 Nasal Cannula 2 07/29/16 13:41 89 16 166/60 96 Nasal Cannula 2 07/29/16 12:51 90 16 170/61 96 Nasal Cannula 2 07/29/16 12:23 86 18 159/73 95 Nasal Cannula 2 07/29/16 12:05 18 175/76 96 Nasal Cannula 2 07/29/16 11:30 81 16 245/102 97 Nasal Cannula 2 07/29/16 11:23 16 Physical Exam GENERAL: This is a well-nourished, well-developed patient, in no apparent distress. SKIN: No rashes, ecchymoses or lesions. Cool and dry. HEAD: Atraumatic. Normocephalic. No temporal or scalp tenderness. EYES: Pupils equal round and reactive. Extraocular motions intact. No scleral icterus. No injection or drainage. ENT: Nose without bleeding, purulent drainage or septal hematoma. Throat without erythema, tonsillar hypertrophy or exudate. Uvula midline. Airway patent. NECK: Trachea midline. Supple, nontender, no meningeal signs. CARDIOVASCULAR: HS audible. RESPIRATORY: Clear to auscultation. Breath sounds equal bilaterally. GASTROINTESTINAL: Abdomen soft, non-tender, nondistended. MUSCULOSKELETAL: Extremities without clubbing, cyanosis, or edema. NEUROLOGICAL: Awake and alert. Grossly non focal. Psych: cooperative IV line sites with no e.o infection. Laboratory Laboratory Tests Test 07/29/16 07/29/16 07/30/16 07/30/16 11:25 19:22 05:00 05:02 Urine Collection Type CATH Urine Color YELLOW Urine Turbidity CLEAR Urine pH 6.5 Urine Specific [place] 1.010 Urine Protein NEG Urine Glucose (UA) NEG Urine Ketones TRACE Urine Occult Blood SMALL Urine Nitrite NEG Urine Bilirubin NEG Urine Leukocyte Esterase NEG Urine RBC 4-9 Urine WBC 0-2 Microscopic Urinalysis Comment CATH-CULT NOT IND Urine Collection Time 11:25 CSF Volume (Tube 1) 3.0 CSF Supernatant Color (tube 1) CLEAR CSF Gross Blood (Tube 1) 0 CSF Volume (Tube 2) 3.0 CSF Supernatant Color (tube 2) CLEAR CSF Gross Blood (Tube 2) 0 CSF Volume (Tube 3) 2.5 CSF Supernatant Color (tube 3) CLEAR CSF Gross Blood (Tube 3) 0 CSF Volume (Tube 4) 3.0 CSF Supernatant Color (tube 4) CLEAR CSF Gross Blood (Tube 4) 0 CSF WBC (Tube 4) 4 CSF RBC (Tube 4) 3 CSF Neutrophils 74 CSF Lymphocytes 19 CSF Monocytes 7 CSF Glucose 83 CSF Total Protein 63.2 Nasal Screen MRSA (PCR) MRSA NOT DETECTED White Blood Count 15.6 Red Blood Count 4.67 Hemoglobin 12.8 Hematocrit 39.4 Mean Corpuscular Volume 84.4 Mean Corpuscular Hemoglobin 27.4 Mean Corpuscular Hemoglobin 32.5 Concent Red Cell Distribution Width 14.6 Platelet Count 285 Mean Platelet Volume 8.3 Neutrophils (%) (Auto) 70.8 Lymphocytes (%) (Auto) 17.7 Monocytes (%) (Auto) 11.1 Eosinophils (%) (Auto) 0.2 Basophils (%) (Auto) 0.2 Neutrophils # (Auto) 11.0 Lymphocytes # (Auto) 2.8 Monocytes # (Auto) 1.7 Eosinophils # (Auto) 0.0 Basophils # (Auto) 0.0 CBC Comment DIFF FINAL Differential Comment Sodium Level 139 Potassium Level 3.4 Chloride Level 102 Carbon Dioxide Level 27.0 Anion Gap 10 Blood Urea Nitrogen 19 Creatinine 0.73 Estimat Glomerular Filtration 78 Rate Random Glucose 117 Calcium Level 8.4 Date/Time Procedure Status Source Growth 07/29/16 19:22 Gram Stain - Final Resulted Cerebral Spinal Fluid Lumbar Puncture 07/29/16 19:22 CSF Culture - Preliminary Resulted Cerebral Spinal Fluid Lumbar Puncture NO GROWTH IN 24 HOURS. 07/29/16 19:22 Cancelled Cerebral Spinal Fluid Lumbar Puncture 07/29/16 14:40 Aerobic Blood Culture Received Blood Peripheral Pending 07/29/16 14:40 Anaerobic Blood Culture Received Blood Peripheral Pending Result Diagram: 07/30/16 0502 07/30/16 0502 Imaging Last Impressions Head CT 07/29/16 0947 Signed Impressions: Service Date/Time: Friday, July 29, 2016 10:51 - CONCLUSION: No acute intracranial findings. Juan Jose Kessler MD Neck CTA 07/29/16 0000 Signed Impressions: Service Date/Time: Friday, July 29, 2016 10:56 - CONCLUSION: 1. Diffuse atherosclerotic disease. 2. Moderate grade stenosis of the left internal carotid artery at the carotid bulb and mild stenosis of the right internal carotid artery at the carotid bulb. 3. Right internal carotid artery courses medially into the submucosal region of the retropharyngeal soft tissues. Juan Jose Kessler MD Lumbar Puncture Fluoroscopy 07/29/16 0000 Signed Impressions: Service Date/Time: Friday, July 29, 2016 19:33 - CONCLUSION: Uncomplicated fluoroscopically guided lumbar puncture with pressures as above. Otoniel Falcon Jr., MD Head CTA 07/29/16 0000 Signed Impressions: Service Date/Time: Friday, July 29, 2016 10:56 - CONCLUSION: Brain CTA within normal limits. Juan Jose Kessler MD Assessment and Plan Assessment and Plan Headache, low grade fevers ? bacterial sinusitis as patient feels better on antibiotics. Abnormal LP: minimally elevated total protein. Hiatal hernia ? GERD HTN DM Prior stroke Recs DC IV acyclovir DC IV antibiotics (Ceftriaxone and Vanco IV) D.w Micro: no growth so far on CSF studies. DC airborne isolation. Consider starting PPI or H2 hua. Needs Opthalm eval as outpatient. Start oral augmentin (for possible bacterial sinusitis for short 5 day course) Recommend MRI brain to look for structural abnormalities or orbital issues given symptoms. CTA with moderate degree of stenosis at risk for CVA ? TIA. Kim Corea MD Jul 30, 2016 11:06
[2016-07-30] MEDS ORDERED: PANTOPRAZOLE SOD 40 MG DELAYED RELEASE TAB PO ONE (11:15)
[2016-07-30] MEDS ORDERED: VANCOMYCIN INJ 1,750 MG in SODIUM CHLORID 0.9% 500 ML INJ 500 ML IV SCH (14:00)
[2016-07-30] MEDS: AMOXICILLIN/CLAVULANATE K 875 MG TAB PO SCH ×2 (16:58→20:05)
[2016-07-30] MEDS ORDERED: LORazepam 2 MG/ML VIAL IV PRN (17:15)
[2016-07-30] MEDS ORDERED: GADODIAMIDE PF 287 MG/ML 20 ML VIAL (for RAD MRI) IV ONE (18:41)
--- NOTE | 2016-07-30 19:42 | RADRPT ---
EXAM DATE/TIME: 07/30/2016 18:22 [facility] COMPARISON: CT BRAIN W/O CONTRAST, July 29, 2016, 10:51. INDICATIONS : Meningitis. CONTRAST: 20 cc Omniscan (gadodiamide) IV MEDICAL HISTORY : Hypertension. Diabetes mellitus type 2. SURGICAL HISTORY : Tonsillectomy. ENCOUNTER: Initial ACUITY: 1 day PAIN SCORE: 4/10 LOCATION: cranial TECHNIQUE: Multiplanar, multisequence MRI of the brain was performed both prior to and following the administrat ion of paramagnetic contrast. FINDINGS: CEREBRUM: The ventricles are normal for age. Old basal ganglia lacunar infarcts. No evidence of midline shift, mass lesion, hemorrhage or acute infarction. No extraaxial fluid collections are seen. The pituita ry gland and suprasellar cistern are normal in configuration. WHITE MATTER: Extensive scattered T2 signal abnormalities are seen in the white matter. POSTERIOR FOSSA: The cerebellum and brainstem are intact. The 4th ventricle is midline. The cerebellopontine angle is unremarkable. The cerebellar tonsils are normal in position. DIFFUSION IMAGING: No focal areas of restricted diffusion are seen. No evidence of acute infarction. EXTRACRANIAL: The visualized portions of the orbits and paranasal sinuses are unremarkable. POST-CONTRAST: No abnormal areas of parenchymal or dural enhancement. No evidence of blood-brain barrier breakdown. CONCLUSION: 1. Extensive nonspecific white matter changes. 2. No acute infarction. 3. No abnormal enhancement. Roly Arriaga MD on July 30, 2016 at 19:39 Board Certified Radiologist. This report was verified electronically.
--- NOTE | 2016-07-30 19:43 | RADRPT ---
EXAM DATE/TIME: 07/30/2016 18:22 COMPARISON: No previous studies available for comparison. INDICATIONS : Cephalgia. CONTRAST: 20 cc Omniscan (gadodiamide) IV MEDICAL HISTORY : Diabetes mellitus type 2. Hypertension. SURGICAL HISTORY : Tonsillectomy. ENCOUNTER: Initial ACUITY: 1 day PAIN SCORE: 4/10 LOCATION: cranial FINDINGS: Venous sinuses are patent. No thrombosis. Superior sagittal, straight, transverse and sigmoid sinuses are patent. Jugular veins appear patent. CONCLUSION: No venous thrombosis. Roly Arriaga MD on July 30, 2016 at 19:40 Board Certified Radiologist. This report was verified electronically.
--- NOTE | 2016-07-30 23:34 | RADRPT ---
EXAM DATE/TIME: 07/30/2016 22:30 [facility] COMPARISON: No previous studies available for comparison. INDICATIONS : Transient ischemic attack. MEDICAL HISTORY : Hypercholesterolemia. Hypertension. Chronic obstructive pulmonary disease. Cerebrovascular accident. Hiatal hernia. Arthritis. Diabetes. SURGICAL HISTORY : Hysterectomy. ENCOUNTER: Initial ACUITY: 1 day PAIN SCORE: 0/10 LOCATION: Bilateral neck PEAK SYSTOLIC VELOCITIES (cm/sec): ICA/CCA RATIO: Right: 1.7 Left: 3.0 ICA: Right: 129 Left: 149 CCA: Right: 78 Left: 50 ECA: Right: 119 Left: 108 VERTEBRAL: Right: 91 antegrade Left: 53 antegrade Elevated flow velocities and ICA/CCA ratios have been found to correlate with increased degrees of vessel stenosis, calculated as percentage of diameter relative to a normal segment of distal ICA/CCA FINDINGS: RIGHT CAROTID: No significant stenosis is visualized. The waveforms are within normal limits. LEFT CAROTID: The patient is a moderate stenosis with a peak systolic ratio 3.0. The velocities only 149 cm/s the ratio is elevated. There significant plaquing in the internal carotid origin VERTEBRAL ARTERIES: Antegrade flow is seen in both vertebral arteries. MISCELLANEOUS: None. CONCLUSION: Moderate atherosclerotic disease on the left is confirmed visually with a prominent ratio of peak sys tolic velocities of 3.0 on the left. Mild disease on the right Uzair Cerna MD on July 30, 2016 at 23:30 Board Certified Radiologist. This report was verified electronically.
[2016-07-31] VITALS (9 sets, daily range): BP systolic 139–174; BP diastolic 63–72; PULSE 58–79; RESP 18–24; TEMP 97.5–98.3; O2SAT 91–95
[2016-07-31] MEDS: CHLORHEXIDINE GLUCONATE 2 % 1 PACK (2 CLOTHS)(taper/protocol) TOPICAL SCH (04:00)
[2016-07-31 05:06] LABS: AUTOMATED NEUTROPHIL # 9.9 TH/MM3 (1.8-7.7); BASOPHIL # 0.1 TH/MM3 (0-0.2); BASOPHIL % 0.4 % (0.0-2.0); EOSINOPHIL # 0.1 TH/MM3 (0-0.4); EOSINOPHIL % 0.4 % (0.0-4.0); HEMATOCRIT 39.7 % (35.0-46.0); HEMO FLAGS DIFF FINAL; LYMPH % 17.2 % (9.0-44.0); LYMPHOCYTE # 2.4 TH/MM3 (1.0-4.8); MEAN CORPUSCULAR HEMOGLOBIN 27.8 PG (27.0-34.0); MEAN CORPUSCULAR HGB CONC 32.7 % (32.0-36.0); MONO % 10.4 % (0.0-8.0); NEUT % 71.6 % (16.0-70.0); PLATELET COUNT 287 TH/MM3 (150-450); RED BLOOD COUNT 4.67 MIL/MM3 (4.00-5.30); RED CELL DISTRIBUTION WIDTH 14.5 % (11.6-17.2); WHITE BLOOD COUNT 13.8 TH/MM3 (4.0-11.0)
[2016-07-31] MEDS: INSULIN ASPART SUPPLEMENTAL SCALE SQ SCH ×4 (06:35→20:35)
[2016-07-31] MEDS: UMECLIDINIUM 62.5 MCG/VILANTEROL 25 MCG INHALER INH SCH (08:32)
[2016-07-31] MEDS: PANTOPRAZOLE SOD 40 MG DELAYED RELEASE TAB PO SCH (08:32)
[2016-07-31] MEDS: PROPRANOLOL HCL 20 MG TAB PO SCH ×2 (08:32→20:35)
[2016-07-31] MEDS: LISINOPRIL 20 MG TAB PO SCH ×2 (08:32→20:34)
[2016-07-31] MEDS: AMOXICILLIN/CLAVULANATE K 875 MG TAB PO SCH ×2 (08:32→20:34)
[2016-07-31] MEDS: PRAVASTATIN SOD 20 MG TAB PO SCH ×2 (08:32→20:35)
[2016-07-31] MEDS: ENALAPRILAT 1.25 MG/ML VIAL IV PUSH PRN ×2 (09:01→17:41)
[2016-07-31] MEDS ORDERED: POTASSIUM CHLORIDE 20 MEQ CONTROLLED RELEASE TAB PO ONE (10:15)
--- NOTE | 2016-07-31 10:20 | HHI.PR ---
Subjective Remarks No new complaints. Pt is tolerating PO intake. No n/v/d. Objective Vitals Vital Signs Date Time Temp Pulse Resp B/P Pulse Ox O2 Delivery O2 Flow Rate FiO2 07/31/16 08:00 97.5 79 20 174/68 94 07/31/16 08:00 79 07/31/16 06:00 59 07/31/16 04:00 59 07/31/16 04:00 97.8 59 19 173/72 91 07/31/16 02:00 58 07/31/16 00:00 98.1 58 24 139/64 92 07/31/16 00:00 58 07/30/16 22:00 63 34 91 07/30/16 22:00 63 07/30/16 20:00 61 07/30/16 20:00 97.7 61 35 91 07/30/16 18:00 65 07/30/16 16:00 61 07/30/16 16:00 98.0 61 24 130/63 90 07/30/16 14:00 61 07/30/16 12:00 98.4 55 30 145/71 92 07/30/16 12:00 55 07/30/16 07/30/16 07/31/16 15:00 23:00 07:00 Intake Total 442 ml 240 ml Output Total 425 ml 200 ml 250 ml Balance 17 ml 40 ml -250 ml Intake Oral 350 ml 240 ml IV Total 92 ml Output Urine Total 425 ml 200 ml 250 ml # Bowel Movements 1 Result Diagram: 07/31/16 0435 07/30/16 0502 Imaging Last Impressions Head/Brain Mag Res Venography 07/30/16 0000 Signed Impressions: Service Date/Time: Saturday, July 30, 2016 18:22 - CONCLUSION: No venous thrombosis. Roly Arriaga MD Carotid Artery Ultrasound 07/30/16 0000 Signed Impressions: Service Date/Time: Saturday, July 30, 2016 22:30 - CONCLUSION: Moderate atherosclerotic disease on the left is confirmed visually with a prominent ratio of peak systolic velocities of 3.0 on the left. Mild disease on the right Uzair Cerna MD Brain MRI 07/30/16 0000 Signed Impressions: Service Date/Time: Saturday, July 30, 2016 18:22 - CONCLUSION: 1. Extensive nonspecific white matter changes. 2. No acute infarction. 3. No abnormal enhancement. Roly Arriaga MD Head CT 07/29/16 0947 Signed Impressions: Service Date/Time: Friday, July 29, 2016 10:51 - CONCLUSION: No acute intracranial findings. Juan Jose Kessler MD Neck CTA 07/29/16 0000 Signed Impressions: Service Date/Time: Friday, July 29, 2016 10:56 - CONCLUSION: 1. Diffuse atherosclerotic disease. 2. Moderate grade stenosis of the left internal carotid artery at the carotid bulb and mild stenosis of the right internal carotid artery at the carotid bulb. 3. Right internal carotid artery courses medially into the submucosal region of the retropharyngeal soft tissues. Juan Jose Kessler MD Lumbar Puncture Fluoroscopy 07/29/16 0000 Signed Impressions: Service Date/Time: Friday, July 29, 2016 19:33 - CONCLUSION: Uncomplicated fluoroscopically guided lumbar puncture with pressures as above. Otoniel Falcon Jr., MD Head CTA 07/29/16 Signed Impressions: Service Date/Time: Friday, July 29, 2016 10:56 - CONCLUSION: Brain CTA within normal limits. Juan Jose Kessler MD Objective Remarks GENERAL: This is a well-nourished, well-developed patient, in no apparent distress. CARDIOVASCULAR: Regular rate and rhythm without murmurs, gallops, or rubs. RESPIRATORY: Clear to auscultation. Breath sounds equal bilaterally. No wheezes , rales, or rhonchi. GASTROINTESTINAL: Abdomen soft, non-tender, nondistended. Normal active bowel sounds MUSCULOSKELETAL: Extremities without clubbing, cyanosis, or edema. NEURO: Alert & Oriented x4 to person, place, time, situation. Moves all ext x4 A/P Problem List: (1) Fever Status: Acute Plan: - Pt is 76 yo dm/htn/copd. Presented with 1 day hx of "sinus/cold sx's", fever, right retroorbital h/a, vomiting, and intermittent confusion/lethargy. - She presented to [facility] ED with fever, leukocytosis. - CT imaging negative for bleed. - ED spoke to ID and advised LP..Failed attempts at P.O. ED - emperic antibiotics/antivirals given, - cardene gtt initiated - pt transfer to [facility] for LP with IR. - carotid dz noted. - Pt ambulating in the room today (07/31/16) and requesting discharge - LP studies, (07/29/16) - gram stain negative - C&S shows NO growth - appreciate input from ID - Pt felt to NOT have meningitis - pt started on augmentin for sinusitis (2) Altered mental status Status: Acute Plan: see above (3) MORELAND (headache) Status: Acute Plan: see above (4) HTN (hypertension) Status: Acute Plan: - BP control has been a problem throughout this hospitalization - Pt was on Cardene drip, now off - Pt's BP was elevated this AM, despite morning lisinopril an prn IV vasotec - will start Procardia XL - possible that hypertensive encephalopathy may have contributed to pt's presentation with AMS - if BP control improves with procardia XL, then will d/c to home 08/01/16 (5) DM (diabetes mellitus) Status: Chronic Plan: - stable - SSI - OHA on hold, will likely resume upon discharge (6) COPD (chronic obstructive pulmonary disease) Status: Chronic Plan: home inhaler. duonebs prn (7) Left-sided carotid artery disease Status: Acute Plan: - left carotid abnormal on US - Left carotid US (07/30/16) Moderate atherosclerotic disease on the left is confirmed visually with a prominent ratio of peak systolic velocities of 3.0 on the left - Case d/w Dr. Gomez, he will consult Problem Qualifiers (1) Fever: Qualified Code: R50.9 - Fever, unspecified fever cause (2) Altered mental status: Qualified Code: R41.82 - Altered mental status, unspecified altered mental status type (3) MORELAND (headache): Qualified Code: R51 - Nonintractable headache, unspecified chronicity pattern, unspecified headache type (4) DM (diabetes mellitus): Qualified Code: E11.8 - Type 2 diabetes mellitus with complication, without long-term current use of insulin Neftaly Khan DO Jul 31, 2016 10:20
[2016-07-31] MEDS: NIFEdipine 60 MG SUSTAINED RELEASE TAB PO SCH (11:04)
[2016-07-31] MEDS: cloNIDine HCL 0.1 MG TAB PO PRN (11:04)
--- NOTE | 2016-07-31 11:15 | HHI.IDPN ---
Subjective Subjective Remarks Ms. Avial is a 76-year-old female with past medical history significant for hiatal hernia, prior history of headaches, irritable bowel syndrome, tachyarrhythmia, anxiety as well as possible history of stroke. Patient lives at home with her and was brought into the emergency department for decreased activity for the last 2 days due to severe retro- orbital headache which was present at rest throbbing in quality associated with mild neck pain. She denies any visual complaints like floating objects, blurry vision or double vision. She reports subjective fever of MAXIMUM TEMPERATURE 100.2 along with multiple episodes of vomiting. Pain is worse with bending forward. Patient does endorse a history of headaches but hasn't had any headaches for the last 2 years. No history of loss of consciousness, numbness weakness tingling of any upper extremities or lower extremities. Patient denies any photophobia or phonophobia. Patient endorses a history of sinus problems off and on. Patient also reports that she had an EGD and colonoscopy including a gallbladder workup recently approximately 4 weeks back and was told everything was normal except that she had a hiatal hernia and ? GERD. Upon review of moderate I do not see any medications for GERD or hiatal hernia and I discussed this with Dr. Norris the primary hospitalist. Upon admission patient underwent a possible sepsis workup including blood cultures and urine studies. Urine studies are not suggestive of an urinary tract infection. A lumbar puncture was done which shows mild elevation in protein but cell count as well as glucose are within normal limits. I called micro-and CSF shows no growth so far. Patient was started on empiric antibiotics for meningitis, including acyclovir for possible herpes meningitis. Infectious disease is consulted for evaluation and management of possible meningitis. Overnight events reviewed No fevers No rash No diarrhea Antibiotics Augmentin oral. Lines Line sites with no e.o infection. Past Medical History reviewed. Allergies: Coded Allergies: Codeine (Verified Adverse Reaction, Unknown, NAUSEA, 07/29/16) Objective . Vital Signs Date Time Temp Pulse Resp B/P Pulse Ox O2 Delivery O2 Flow Rate FiO2 07/31/16 10:00 62 07/31/16 08:00 97.5 79 20 174/68 94 07/31/16 08:00 79 07/31/16 06:00 59 07/31/16 04:00 59 07/31/16 04:00 97.8 59 19 173/72 91 07/31/16 02:00 58 07/31/16 00:00 98.1 58 24 139/64 92 07/31/16 00:00 58 07/30/16 22:00 63 34 91 07/30/16 22:00 63 07/30/16 20:00 61 07/30/16 20:00 97.7 61 35 91 07/30/16 18:00 65 07/30/16 16:00 61 07/30/16 16:00 98.0 61 24 130/63 90 07/30/16 14:00 61 07/30/16 12:00 98.4 55 30 145/71 92 07/30/16 12:00 55 07/30/16 07/30/16 07/31/16 15:00 23:00 07:00 Intake Total 442 ml 240 ml Output Total 425 ml 200 ml 250 ml Balance 17 ml 40 ml -250 ml Intake Oral 350 ml 240 ml IV Total 92 ml Output Urine Total 425 ml 200 ml 250 ml # Bowel Movements 1 . Laboratory Tests Test 07/30/16 07/31/16 05:02 04:35 White Blood Count 15.6 TH/MM3 13.8 TH/MM3 Red Blood Count 4.67 MIL/MM3 4.67 MIL/MM3 Hemoglobin 12.8 GM/DL 13.0 GM/DL Hematocrit 39.4 % 39.7 % Mean Corpuscular Volume 84.4 FL 85.0 FL Mean Corpuscular Hemoglobin 27.4 PG 27.8 PG Mean Corpuscular Hemoglobin 32.5 % 32.7 % Concent Red Cell Distribution Width 14.6 % 14.5 % Platelet Count 285 TH/MM3 287 TH/MM3 Mean Platelet Volume 8.3 FL 7.9 FL Neutrophils (%) (Auto) 70.8 % 71.6 % Lymphocytes (%) (Auto) 17.7 % 17.2 % Monocytes (%) (Auto) 11.1 % 10.4 % Eosinophils (%) (Auto) 0.2 % 0.4 % Basophils (%) (Auto) 0.2 % 0.4 % Neutrophils # (Auto) 11.0 TH/MM3 9.9 TH/MM3 Lymphocytes # (Auto) 2.8 TH/MM3 2.4 TH/MM3 Monocytes # (Auto) 1.7 TH/MM3 1.4 TH/MM3 Eosinophils # (Auto) 0.0 TH/MM3 0.1 TH/MM3 Basophils # (Auto) 0.0 TH/MM3 0.1 TH/MM3 CBC Comment DIFF FINAL DIFF FINAL Differential Comment Laboratory Tests Test 07/30/16 05:02 Sodium Level 139 MEQ/L Potassium Level 3.4 MEQ/L Chloride Level 102 MEQ/L Carbon Dioxide Level 27.0 MEQ/L Anion Gap 10 MEQ/L Blood Urea Nitrogen 19 MG/DL Creatinine 0.73 MG/DL Estimat Glomerular Filtration 78 ML/MIN Rate Random Glucose 117 MG/DL Calcium Level 8.4 MG/DL Microbiology Date/Time Procedure Status Source Growth 07/29/16 14:35 Aerobic Blood Culture - Preliminary Resulted Blood Peripheral NO GROWTH IN 2 DAYS 07/29/16 14:35 Anaerobic Blood Culture - Preliminary Resulted Blood Peripheral NO GROWTH IN 2 DAYS 07/29/16 14:40 Aerobic Blood Culture - Preliminary Resulted Blood Peripheral NO GROWTH IN 2 DAYS 07/29/16 14:40 Anaerobic Blood Culture - Preliminary Resulted Blood Peripheral NO GROWTH IN 2 DAYS 07/29/16 19:22 Gram Stain - Final Complete Cerebral Spinal Fluid Lumbar Puncture 07/29/16 19:22 CSF Culture - Final Complete Cerebral Spinal Fluid Lumbar Puncture No growth. 07/29/16 19:22 Cancelled Cerebral Spinal Fluid Lumbar Puncture Imaging Last Impressions Head/Brain Mag Res Venography 07/30/16 0000 Signed Impressions: Service Date/Time: Saturday, July 30, 2016 18:22 - CONCLUSION: No venous thrombosis. Roly Arriaga MD Carotid Artery Ultrasound 07/30/16 0000 Signed Impressions: Service Date/Time: Saturday, July 30, 2016 22:30 - CONCLUSION: Moderate atherosclerotic disease on the left is confirmed visually with a prominent ratio of peak systolic velocities of 3.0 on the left. Mild disease on the right Uzair Cerna MD Brain MRI 07/30/16 0000 Signed Impressions: Service Date/Time: Saturday, July 30, 2016 18:22 - CONCLUSION: 1. Extensive nonspecific white matter changes. 2. No acute infarction. 3. No abnormal enhancement. Roly Arriaga MD Head CT 07/29/16 0947 Signed Impressions: Service Date/Time: Friday, July 29, 2016 10:51 - CONCLUSION: No acute intracranial findings. Juan Jose Kessler MD Neck CTA 6/3/17 0000 Signed Impressions: Service Date/Time: Friday, July 29, 2016 10:56 - CONCLUSION: 1. Diffuse atherosclerotic disease. 2. Moderate grade stenosis of the left internal carotid artery at the carotid bulb and mild stenosis of the right internal carotid artery at the carotid bulb. 3. Right internal carotid artery courses medially into the submucosal region of the retropharyngeal soft tissues. Juan Jose Kessler MD Lumbar Puncture Fluoroscopy 07/29/16 Signed Impressions: Service Date/Time: Friday, July 29, 2016 19:33 - CONCLUSION: Uncomplicated fluoroscopically guided lumbar puncture with pressures as above. Otoniel Falcon Jr., MD Head CTA 07/29/16 Signed Impressions: Service Date/Time: Friday, July 29, 2016 10:56 - CONCLUSION: Brain CTA within normal limits. Juan Jose Kessler MD Physical Exam GENERAL: This is a well-nourished, well-developed patient, in no apparent distress. SKIN: No rashes, ecchymoses or lesions. Cool and dry. HEAD: Atraumatic. Normocephalic. No temporal or scalp tenderness. EYES: Pupils equal round and reactive. Extraocular motions intact. No scleral icterus. No injection or drainage. ENT: Nose without bleeding, purulent drainage or septal hematoma. Throat without erythema, tonsillar hypertrophy or exudate. Uvula midline. Airway patent. NECK: Trachea midline. Supple, nontender, no meningeal signs. CARDIOVASCULAR: HS audible. RESPIRATORY: Clear to auscultation. Breath sounds equal bilaterally. GASTROINTESTINAL: Abdomen soft, non-tender, nondistended. MUSCULOSKELETAL: Extremities without clubbing, cyanosis, or edema. NEUROLOGICAL: Awake and alert. Grossly non focal. Psych: cooperative IV line sites with no e.o infection. Assessment & Plan Remarks Headache, low grade fevers ? bacterial sinusitis as patient feels better on antibiotics. Abnormal LP: minimally elevated total protein. Hiatal hernia ? GERD HTN DM Prior stroke Recs Continue oral augmentin (for possible bacterial sinusitis for short 5 day course ) Needs Opthalm eval as outpatient. d/w pt MRI findings : recommend Neurology eval as outpt. Will sign off please call back if any change in clinical condition or questions. Kim Corea MD Jul 31, 2016 11:15
--- NOTE | 2016-07-31 12:03 | MB ---
cc: AILEEN SANTOS MD DATE OF CONSULTATION 07/30/2016 REASON FOR CONSULTATION Encephalopathy and possible headache and possible labyrinthitis. HISTORY OF PRESENT ILLNESS Ms. Avila is a 76-year-old female with past medical history of stroke / TIA with right-sided weakness with no residual defect 10 years ago, irritable bowel syndrome, prior history of headaches, tachycardia, hypercholesteremia, diabetes, hypertension, anxiety. The patient lives at home with her . The patient was brought emergent to the hospital at [facility] initially for severe retroorbital headache, throbbing in quality, associated with fever and confusion. The patient states that over the last 6 months she has been having difficulty writing checks, expressing herself sometimes. However, the headache has only been for 5 days. This is a new headache, mainly right-sided, retro-orbital, pounding with no radiation, no visual symptoms. Occasionally she feels like, "my eyes are crossed" with an associated fever. Denied any upper or lower extremity weakness, loss of consciousness or convulsions. The patient was transferred from [place] location [facility] for further evaluation. She was managed as sepsis,a head CT scan without contrast was unremarkable. A lumbar puncture revealed mild elevation in the protein, cell count and glucose were within normal. CSF cultures revealed no growth so far and she was started on empiric antibiotics for treatment of meningitis including acyclovir for possible herpes simplex meningitis and encephalitis. REVIEW OF SYSTEMS 12-point review of systems is negative except for what is stated in the HPI. PAST MEDICAL HISTORY 1. Hypertension. 2. Diabetes. 3. Irritable bowel syndrome. 4. History of stroke / transient ischemic attack with no residual weakness. 5. Hyperlipidemia. 6. Tachyarrhythmia. 7. Hiatal hernia. PAST SURGICAL HISTORY 1. Bilateral cataract surgery. 2. Hysterectomy. ALLERGIES CODEINE. MEDICATIONS 1. Hydrochlorothiazide. 2. Lisinopril. 3. Lovastatin. 4. Aspirin 81. 5. Diphenoxylate. 6. Metformin. FAMILY HISTORY . SOCIAL HISTORY Denies alcohol, substance abuse and tobacco abuse. She quit 20 years ago. PHYSICAL EXAMINATION GENERAL: Awake, alert, oriented, pleasant, good historian. Not in apparent distress. HEENT: Atraumatic, normocephalic. Intact hearing and vision. NECK: Supple. No signs of meningeal irritation. CARDIOVASCULAR: Regular rate and rhythm. RESPIRATORY: Clear to auscultation. No wheezes. ABDOMEN: nontender, soft abdomen. MUSCULOSKELETAL: Without clubbing, cyanosis or edema. Moves extremities equally. NEUROLOGIC: Awake and alert, oriented to time, person and place. No dysarthria. No dysphasia. No temporal tenderness. Intact temporal pulses. Cranial nerves II-XII appropriate, intact. No painful eye movement. Motor system examination 5/5 bilateral symmetrical upper and lower extremities. No abnormal movement and normal tone. Reflexes 2+ bilateral symmetrical. Plantars are bilaterally downgoing. Sensation to light touch and temperature is intact. [id number], [id number] are intact. PSYCHOLOGIC: Intact. Normal mood and behavior. No hallucination. LABORATORY DATA Review of lab work revealed white blood cell count 13.6, hemoglobin 12.8.Sodium 139, potassium 3.4, BUN 19, creatinine 0.73, random glucose 117, calcium 8.4. INR 1.0. CSF examination revealed elevated glucose 83, total protein of 62. IMAGING STUDIES - Head CT scan without contrast was unremarkable. - Neck CTA revealed diffuse atherosclerotic disease. Moderate grade stenosis of the left ICA at the carotid bulb and mild stenosis of the right ICA at the carotid bulb. Right ICA courses medially into the submucosal region of the retropharyngeal soft tissues. - Head CTA was reported as normal. DIAGNOSTIC IMPRESSION 1. New onset headache. 2. Encephalopathy. 3. Leukocytosis. 4. History of transient ischemic attack/stroke. 5. COPD. 6. Diabetes mellitus. 7. Hypertension. PLAN 1. Neurological checks q. 1 hourly. - Review of the brain and neck imaging reveals carotid artery disease that would not explain this headache and confusion episode. However, with the remote history of TIA/stroke with transient right-sided weakness further workup is required. 2. Neurological examination is nonfocal and neurological investigations are unremarkable. 3. May discontinue the empiric antibiotics at this time. Review of blood work revealed normal hematology and sedimentation rate. 4. Obtain MRA of the brain. 5. Obtain carotid ultrasound. 6. Deep venous thrombosis prophylaxis. 7. Sequential compression devices. 8. If the patient remains stable can be transferred out of the intensive care unit. Thank you for the opportunity to participate in the care of your patient. MD JASON Rodriguez/KK /10:53 PM /11:48 AM TANI
[2016-07-31 12:11] LABS: AUTOMATED NEUTROPHIL # 12.3 TH/MM3 (1.8-7.7); BASOPHIL # 0.1 TH/MM3 (0-0.2); BASOPHIL % 0.4 % (0.0-2.0); EOSINOPHIL # 0.1 TH/MM3 (0-0.4); EOSINOPHIL % 0.6 % (0.0-4.0); HEMATOCRIT 40.8 % (35.0-46.0); HEMO FLAGS DIFF FINAL; LYMPH % 13.1 % (9.0-44.0); LYMPHOCYTE # 2.1 TH/MM3 (1.0-4.8); MEAN CELL VOLUME 85.8 FL (80.0-100.0); MEAN CORPUSCULAR HEMOGLOBIN 28.2 PG (27.0-34.0); MEAN CORPUSCULAR HGB CONC 32.9 % (32.0-36.0); NEUT % 76.9 % (16.0-70.0); PLATELET COUNT 301 TH/MM3 (150-450); RED BLOOD COUNT 4.75 MIL/MM3 (4.00-5.30); RED CELL DISTRIBUTION WIDTH 14.7 % (11.6-17.2); WHITE BLOOD COUNT 15.9 TH/MM3 (4.0-11.0)
[2016-07-31 12:31] LABS: BICARBONATE 24.3 MEQ/L (21.0-32.0); POTASSIUM 4.1 MEQ/L (3.5-5.1)
--- NOTE | 2016-07-31 12:54 | PD.VS.CON ---
History of Present Illness Chief Complaint: Headache, Vomiting (4 episodes with dry heaves) and pain behind the right eye () Consult Requested by: Dr. Khan History of Present Illness Mrs. Avila is a pleasant obese 76/F patient with a PMH of DM, IBS, HTN, CVA, Migraine headaches, Cataract and COPD. She presented to [facility] with a cc of a severe retro-orbital headache, nausea and Vomiting (4 episodes with dry heaves) on 07/29/16. Pt and reported she recently visited her population geneticist for f/u IBS and a new Dx of a hiatal hernia which she was referred to Dr. Suggs for possible surgical intervention. Pt stated she had abdominal pain Mak night 07/28/16 and woke up Sat am with nausea, vomiting and severe pain behind the right eye. Pt denied unilateral weakness, changes in speech and vision loss. (Marj Peters) Past/Family/Social History Past Medical History Hiatal hernia HTN CVA (20 years ago) no recent events reported Hypercholesterolemia Diabetes Irritable bowel syndrome COPD Migraine Headaches (last episode 20 years ago) Past Surgical History Bilateral cataract surgery possible intraocular lens implants (Dr. Whitley) Hysterectomy Social History with 3 children Lives w/ spouse Quit smoking 20 years ago Denies Alcohol Denies illegal substance usage Family History [place] (Marj Peters) Home Medications Reported Medications Umeclidinium-Vilanterol Inh (Anoro Ellipta Inh)62.5-25 Mcg/Act Aero1 Puff INH DAILY #1 INHALER Ref 0 07/29/16 Propranolol 20 Mg Tab20 Mg PO Q12HR #60 TAB Ref 0 07/29/16 Albuterol 18 GM Inh (Ventolin Hfa 18 GM Inh)90 Mcg/Act Aer2 Puff INH Q4-6H PRN ( SHORTNESS OF BREATH) #1 INHALER Ref 0 07/29/16 Bacillus Coagulans (Probiotic)1 Each Tab.chew 07/29/16 Hydrochlorothiazide 25 Mg Tab25 Mg PO DAILY #30 TAB Ref 0 07/29/16 Lisinopril 20 Mg Tab20 Mg PO BID #30 TAB Ref 0 07/29/16 Lovastatin 20 Mg Tab20 Mg PO BID #30 TAB Ref 0 07/29/[address] (Aspirin 81)81 Mg Tabdr81 Mg PO DAILY Ref 0 07/29/16 Diphenoxylate-Atropine 2.5-0.025 Mg Tab1 Tab PO Q8HR PRN (DIARRHEA) Ref 0 07/29/16 Metformin 500 Mg Sxi617 Mg PO BIDPC #60 TAB Ref 0 With meals 07/29/16 Discontinued Reported Medications Budesonide-Formoterol Inh (Symbicort Inh)160-4.5 Mcg/Act Aero2 Puff INH Q12HR # 1 INHALER Ref 0 07/29/16 Lactobacillus (Probiotic) Cap1 Cap PO DAILY 04/07/14 Metformin XR 24 HR (Glucophage XR 24 HR)500 Mg [id number] Mg PO BIDPC 04/07/14 Lovastatin 40 Mg Tab80 Mg PO HS 04/07/14 [place]-3 Fatty Acids (Fish Oil)1,000 Mg Cap1,000 Mg PO DAILY 04/07/14 Diphenoxylate W/ Atropine (Diphenoxylate/Atropine)2.5 Mg Tab2.5 Mg PO TID 04/07/14 Diltiazem Hcl Coated Beads (Diltiazem Hcl Er)180 Mg Bkr653 Mg PO BID 04/07/14 Albuterol Sulfate (Ventolin Hfa)18 Gm Aero2 Puff INH Q4H PRN (WHEEZING) UNKNOWN DOSE 02/29/12 Multiple Vitamin (Multi-Vitamin Daily)Daily Tab1 Po 02/29/12 Aspirin (Baby Aspirin)81 Mg Chw81 Mg PO DAILY 02/29/12 Lisinopril 20 mg 20 Mg Tab20 Mg PO BID 02/29/12 Hydrochlorothiazide (Hctz)25 Mg Tab25 Mg PO DAILY 02/29/12 Mesalamine (Asacol)400 Mg Eared327 Mg PO TID 02/29/12 Coded Allergies: Codeine (Verified Adverse Reaction, Unknown, NAUSEA, 07/29/16) Physical Exam Vitals/I&O Date Time Temp Pulse Resp B/P Pulse Ox O2 Delivery O2 Flow Rate FiO2 07/31/16 10:00 62 07/31/16 08:00 97.5 79 20 174/68 94 07/31/16 08:00 79 07/31/16 06:00 59 07/31/16 04:00 59 07/31/16 04:00 97.8 59 19 173/72 91 07/31/16 02:00 58 07/31/16 00:00 98.1 58 24 139/64 92 07/31/16 00:00 58 07/30/16 22:00 63 34 91 07/30/16 22:00 63 07/30/16 20:00 61 07/30/16 20:00 97.7 61 35 91 07/30/16 18:00 65 07/30/16 16:00 61 07/30/16 16:00 98.0 61 24 130/63 90 07/30/16 14:00 61 07/30/16 12:00 98.4 55 30 145/71 92 07/30/16 12:00 55 07/31/16 07/31/16 07/31/16 07:00 15:00 23:00 Output Total 250 ml Balance -250 ml Neuro: Pt A&OX3 CN 2-12 intact HEENT: Pt w/o visual changes Neck: No JVD distention Heart: +S1,S2 RRR Lungs: CTA bilat Abdomen: S/NT Vascular: Mild bilat carotid bruit noted Bilat radial pulses palpable Extremities: Pt with equal movement to all 4 ext UE strength 5/5 LE strength 5/5 (Fran,Marj F TAIL PULLER) Laboratory Tests Test 07/31/16 04:35 White Blood Count 13.8 Red Blood Count 4.67 Hemoglobin 13.0 Hematocrit 39.7 Mean Corpuscular Volume 85.0 Mean Corpuscular Hemoglobin 27.8 Mean Corpuscular Hemoglobin 32.7 Concent Red Cell Distribution Width 14.5 Platelet Count 287 Mean Platelet Volume 7.9 Neutrophils (%) (Auto) 71.6 Lymphocytes (%) (Auto) 17.2 Monocytes (%) (Auto) 10.4 Eosinophils (%) (Auto) 0.4 Basophils (%) (Auto) 0.4 Neutrophils # (Auto) 9.9 Lymphocytes # (Auto) 2.4 Monocytes # (Auto) 1.4 Eosinophils # (Auto) 0.1 Basophils # (Auto) 0.1 CBC Comment DIFF FINAL Differential Comment Date/Time Procedure Status Source Growth 07/29/16 19:22 Gram Stain - Final Complete Cerebral Spinal Fluid Lumbar Puncture 07/29/16 19:22 CSF Culture - Final Complete Cerebral Spinal Fluid Lumbar Puncture No growth. 07/29/16 19:22 Cancelled Cerebral Spinal Fluid Lumbar Puncture 07/29/16 14:40 Aerobic Blood Culture - Preliminary Resulted Blood Peripheral NO GROWTH IN 2 DAYS 07/29/16 14:40 Anaerobic Blood Culture - Preliminary Resulted Blood Peripheral NO GROWTH IN 2 DAYS Last 48 hours Impressions Head/Brain Mag Res Venography 07/30/16 0000 Signed Impressions: Service Date/Time: Saturday, July 30, 2016 18:22 - CONCLUSION: No venous thrombosis. Roly Arriaga MD Carotid Artery Ultrasound 07/30/16 0000 Signed Impressions: Service Date/Time: Saturday, July 30, 2016 22:30 - CONCLUSION: Moderate atherosclerotic disease on the left is confirmed visually with a prominent ratio of peak systolic velocities of 3.0 on the left. Mild disease on the right Uzair Cerna MD Brain MRI 07/30/16 0000 Signed Impressions: Service Date/Time: Saturday, July 30, 2016 18:22 - CONCLUSION: 1. Extensive nonspecific white matter changes. 2. No acute infarction. 3. No abnormal enhancement. Roly Arriaga MD (Marj Peters) Assessment and Plan Assessment: (1) Left-sided carotid artery disease Status: Acute Plan Plan Reviewed radiology studies with Dr. Gomez Pt appears to have asymptomatic Left sided Carotid Stenosis less than 80 percent No surgical Intervention needed at this time Will see patient for F/U carotid duplex in 6M in our OPC Marj ALLEN [facility] [phone] Discharge Planning Will see patient in our OPC From a vascular standpoint pt ok for D/C (Marj Peters) Plan Mild cerebrovascular disease with velocities c/w barely above 50% stenosis. Symptoms not c/w carotid disease. On appropriate medical management. Will f/u in 6m with carotid duplex. Pt has my numbers and clinic date/time. Scout Gomez MD FACS children's ministries director [facility] - Heart and Vascular Surgery at [facility] [phone] (Scout Gomez MD) Marj Peters Jul 31, 2016 12:54 Scout Gomez MD Jul 31, 2016 14:41
--- NOTE | 2016-07-31 18:10 | HHI.PR ---
Review/Management Diagnosis 1. New onset headache, resolved 2. Encephalopathy, resolved. 3. Carotid artery disease 4. History of transient ischemic attack/stroke, no residual deficit. 5. COPD. 6. Diabetes mellitus. 7. Hypertension. Plan - Neurological examination is nonfocal and neurological investigations are unremarkable. - Review of blood work revealed normal hematology and sedimentation rate. - Follow up with vascular surgery for carotid artery disease - Will sign off - Follow up with outpatient neurology in four weeks - Please call for questions Diagnosis/Plan: Subjective Subjective Comments No acute events reported at bed side Denies headache or dizziness MRI brain revealed extensive white matter disease, no acute intracranial abnormality CUS revealed carotid artery disease with no need for surgical intervention at this time Active Medications Current Medications Medications (Trade) Dose Ordered Sig/Reece Route Start Time Stop Time Status Last Admin Sodium Chloride 2 ml 2 ml UNSCH PRN IVF 07/29/16 10:00 (Cardene Inj/NS 250 ml Inj) 260 ml @ 0 mls/hr TITRATE IV 07/29/16 11:30 07/29/16 23:09 (Zofran Inj) 4 mg Q4H PRN IV PUSH 07/29/16 18:15 (Tylenol) 650 mg Q4H PRN PO 07/29/16 18:15 (Vasotec Inj) 1.25 mg Q4H PRN IV PUSH 07/29/16 18:15 07/31/16 17:41 (Catapres) 0.1 mg Q4H PRN PO 07/29/16 18:15 07/31/16 11:04 (Lomotil Tab) 1 tab Q8H PRN PO 07/29/16 18:15 (Prinivil) 20 mg BID PO 07/29/16 21:00 07/31/16 08:32 (Pravachol) 20 mg BID PO 07/29/16 21:00 07/31/16 08:32 (Inderal) 20 mg Q12HR PO 07/29/16 21:00 07/31/16 08:32 Miscellaneous Information Patient in critical care unit? Ass... [id number] .XX 07/30/16 05:15 07/30/16 05:15 (Chlorhexidine 2% Cloth) 3 pack DAILY@04 TOPICAL 07/31/16 04:00 08/04/16 04:01 07/31/16 04:00 (Chlorhexidine 2% Cloth) 3 pack UNSCH PRN TOPICAL 07/30/16 05:15 08/04/16 05:01 (Protonix) 40 mg DAILY PO 07/31/16 09:00 07/31/16 08:32 (Augmentin) 875 mg Q12HR PO 07/30/16 13:00 07/31/16 08:32 (Procardia Xl) 60 mg DAILY PO 07/31/16 10:15 07/31/16 11:04 Allergies Allergies Coded Allergies Codeine (Verified Adverse Reaction, Unknown, NAUSEA, 07/29/16) Exam I&O / VS 07/30/16 07/30/16 07/31/16 15:00 23:00 07:00 Intake Total 442 ml 240 ml Output Total 425 ml 200 ml 250 ml Balance 17 ml 40 ml -250 ml Intake Oral 350 ml 240 ml IV Total 92 ml Output Urine Total 425 ml 200 ml 250 ml # Bowel Movements 1 Vital Signs Date Time Temp Pulse Resp B/P Pulse Ox O2 Delivery O2 Flow Rate FiO2 07/31/16 16:00 98.1 58 22 161/72 92 07/31/16 16:00 58 07/31/16 12:00 59 07/31/16 12:00 98.2 59 18 143/63 95 07/31/16 10:00 62 07/31/16 08:00 97.5 79 20 174/68 94 07/31/16 08:00 79 07/31/16 06:00 59 07/31/16 04:00 59 07/31/16 04:00 97.8 59 19 173/72 91 07/31/16 02:00 58 07/31/16 00:00 98.1 58 24 139/64 92 07/31/16 00:00 58 07/30/16 22:00 63 34 91 07/30/16 22:00 63 07/30/16 20:00 61 07/30/16 20:00 97.7 61 35 91 Exam Comments GENERAL: Awake, alert, oriented, pleasant, good historian. Not in apparent distress. HEENT: Atraumatic, normocephalic. Intact hearing and vision. NECK: Supple. No signs of meningeal irritation. CARDIOVASCULAR: Regular rate and rhythm. RESPIRATORY: Clear to auscultation. No wheezes. ABDOMEN: nontender, soft abdomen. MUSCULOSKELETAL: Without clubbing, cyanosis or edema. Moves extremities equally. NEUROLOGIC: Awake and alert, oriented to time, person and place. No dysarthria. No dysphasia. No temporal tenderness. Intact temporal pulses. Cranial nerves II-XII appropriate, intact. No painful eye movement. Motor system examination 5/5 bilateral symmetrical upper and lower extremities. No abnormal movement and normal tone. Reflexes 2+ bilateral symmetrical. Plantars are bilaterally downgoing. Sensation to light touch and temperature is intact. [id number]-iugu, srct-ct-[id number] are intact. PSYCHOLOGIC: Intact. Normal mood and behavior. No hallucination. Objective Radiology Results Last 72 hours Impressions Head/Brain Mag Res Venography 07/30/16 Signed Impressions: Service Date/Time: Saturday, July 30, 2016 18:22 - CONCLUSION: No venous thrombosis. Roly Arriaga MD Carotid Artery Ultrasound 07/30/16 Signed Impressions: Service Date/Time: Saturday, July 30, 2016 22:30 - CONCLUSION: Moderate atherosclerotic disease on the left is confirmed visually with a prominent ratio of peak systolic velocities of 3.0 on the left. Mild disease on the right Uzair Cerna MD Brain MRI 07/30/16 Signed Impressions: Service Date/Time: Saturday, July 30, 2016 18:22 - CONCLUSION: 1. Extensive nonspecific white matter changes. 2. No acute infarction. 3. No abnormal enhancement. Roly Arriaga MD Head CT 07/29/16 0947 Signed Impressions: Service Date/Time: Friday, July 29, 2016 10:51 - CONCLUSION: No acute intracranial findings. Juan Jose Kessler MD Neck CTA 07/29/16 Signed Impressions: Service Date/Time: Friday, July 29, 2016 10:56 - CONCLUSION: 1. Diffuse atherosclerotic disease. 2. Moderate grade stenosis of the left internal carotid artery at the carotid bulb and mild stenosis of the right internal carotid artery at the carotid bulb. 3. Right internal carotid artery courses medially into the submucosal region of the retropharyngeal soft tissues. Juan Jose Kessler MD Lumbar Puncture Fluoroscopy 07/29/16 Signed Impressions: Service Date/Time: Friday, July 29, 2016 19:33 - CONCLUSION: Uncomplicated fluoroscopically guided lumbar puncture with pressures as above. Otoniel Falcon Jr., MD Head CTA 07/29/16 0000 Signed Impressions: Service Date/Time: Friday, July 29, 2016 10:56 - CONCLUSION: Brain CTA within normal limits. Juan Jose Kessler MD Micro and Labs Laboratory Tests Test 07/31/16 07/31/16 04:35 11:22 White Blood Count 13.8 15.9 Red Blood Count 4.67 4.75 Hemoglobin 13.0 13.4 Hematocrit 39.7 40.8 Mean Corpuscular Volume 85.0 85.8 Mean Corpuscular Hemoglobin 27.8 28.2 Mean Corpuscular Hemoglobin 32.7 32.9 Concent Red Cell Distribution Width 14.5 14.7 Platelet Count 287 301 Mean Platelet Volume 7.9 8.3 Neutrophils (%) (Auto) 71.6 76.9 Lymphocytes (%) (Auto) 17.2 13.1 Monocytes (%) (Auto) 10.4 9.0 Eosinophils (%) (Auto) 0.4 0.6 Basophils (%) (Auto) 0.4 0.4 Neutrophils # (Auto) 9.9 12.3 Lymphocytes # (Auto) 2.4 2.1 Monocytes # (Auto) 1.4 1.4 Eosinophils # (Auto) 0.1 0.1 Basophils # (Auto) 0.1 0.1 CBC Comment DIFF FINAL DIFF FINAL Differential Comment Sodium Level 138 Potassium Level 4.1 Chloride Level 107 Carbon Dioxide Level 24.3 Anion Gap 7 Blood Urea Nitrogen 19 Creatinine 0.66 Estimat Glomerular Filtration 87 Rate Random Glucose 111 Calcium Level 8.9 Date/Time Procedure Status Source Growth 07/29/16 19:22 Gram Stain - Final Complete Cerebral Spinal Fluid Lumbar Puncture 07/29/16 19:22 CSF Culture - Final Complete Cerebral Spinal Fluid Lumbar Puncture No growth. 07/29/16 19:22 Cancelled Cerebral Spinal Fluid Lumbar Puncture 07/29/16 14:40 Aerobic Blood Culture - Preliminary Resulted Blood Peripheral NO GROWTH IN 2 DAYS 07/29/16 14:40 Anaerobic Blood Culture - Preliminary Resulted Blood Peripheral NO GROWTH IN 2 DAYS Cesar Lagos MD Jul 31, 2016 18:10
[2016-08-01] VITALS: PULSE 63; PULSE 66; RESP 23; TEMP 98.4
[2016-08-01] MEDS: DIPHENOXYLATE/ATROPINE 2.5 MG/0.025 MG TAB PO PRN ×2 (01:13→14:52)
[2016-08-01] MEDS: ENALAPRILAT 1.25 MG/ML VIAL IV PUSH PRN (01:14)
[2016-08-01 02:30] VITALS: BP 133/70; PULSE 69; RESP 17; TEMP 98.4; O2SAT 95
[2016-08-01] MEDS: CHLORHEXIDINE GLUCONATE 2 % 1 PACK (2 CLOTHS)(taper/protocol) TOPICAL SCH (04:00)
[2016-08-01 05:20] VITALS: BP 180/76; PULSE 71; RESP 20; O2SAT 98
[2016-08-01] MEDS: cloNIDine HCL 0.1 MG TAB PO PRN (05:57)
[2016-08-01] MEDS: INSULIN ASPART SUPPLEMENTAL SCALE SQ SCH ×2 (07:00→11:49)
[2016-08-01] MEDS: NIFEdipine 60 MG SUSTAINED RELEASE TAB PO SCH (08:16)
[2016-08-01] MEDS: LISINOPRIL 20 MG TAB PO SCH (08:16)
[2016-08-01] MEDS: PANTOPRAZOLE SOD 40 MG DELAYED RELEASE TAB PO SCH (08:16)
[2016-08-01] MEDS: PROPRANOLOL HCL 20 MG TAB PO SCH (08:16)
[2016-08-01] MEDS: PRAVASTATIN SOD 20 MG TAB PO SCH (08:16)
[2016-08-01] MEDS: UMECLIDINIUM 62.5 MCG/VILANTEROL 25 MCG INHALER INH SCH (08:20)
[2016-08-01 08:24] VITALS: BP 154/67; PULSE 66; RESP 18; TEMP 96.4; O2SAT 92
[2016-08-01] MEDS: AMOXICILLIN/CLAVULANATE K 875 MG TAB PO SCH (08:25)
[2016-08-01 09:19] LABS: BASOPHIL # 0.1 TH/MM3 (0-0.2); BASOPHIL % 0.7 % (0.0-2.0); EOSINOPHIL # 0.1 TH/MM3 (0-0.4); EOSINOPHIL % 0.8 % (0.0-4.0); HEMATOCRIT 43.3 % (35.0-46.0); HEMO FLAGS DIFF FINAL; LYMPH % 15.6 % (9.0-44.0); LYMPHOCYTE # 2.3 TH/MM3 (1.0-4.8); MEAN CELL VOLUME 85.2 FL (80.0-100.0); MEAN CORPUSCULAR HEMOGLOBIN 27.3 PG (27.0-34.0); MONO % 9.3 % (0.0-8.0); NEUT % 73.6 % (16.0-70.0); PLATELET COUNT 275 TH/MM3 (150-450); RED BLOOD COUNT 5.08 MIL/MM3 (4.00-5.30); RED CELL DISTRIBUTION WIDTH 14.7 % (11.6-17.2); WHITE BLOOD COUNT 14.9 TH/MM3 (4.0-11.0)
[2016-08-01 09:22] LABS: BICARBONATE 24.6 MEQ/L (21.0-32.0); MAGNESIUM 2.4 MG/DL (1.5-2.5); POTASSIUM 4.3 MEQ/L (3.5-5.1)
[2016-08-01 09:49] VITALS: PULSE 97
[2016-08-01 12:07] VITALS: BP 151/64; PULSE 67; RESP 19; TEMP 95.8; O2SAT 93
[2016-08-01 12:13] LABS: HSV 1,PCR Negative (Negative)
[2016-08-01] MEDS ORDERED: PHARMACY ORDERED LAB ONE (13:45)
--- NOTE | 2016-08-01 14:52 | HHI.PR ---
Objective Vitals Vital Signs Date Time Temp Pulse Resp B/P Pulse Ox O2 Delivery O2 Flow Rate FiO2 08/01/16 12:07 95.8 67 19 151/64 93 08/01/16 09:49 97 08/01/16 08:24 96.4 66 18 154/67 92 08/01/16 05:20 71 20 180/76 98 08/01/16 02:30 98.4 69 17 133/70 95 08/01/16 00:00 98.4 63 23 08/01/16 00:00 66 07/31/16 20:00 64 07/31/16 20:00 98.3 64 24 07/31/16 16:00 98.1 58 22 161/72 92 07/31/16 16:00 58 07/31/16 07/31/16 08/01/16 15:00 23:00 07:00 Intake Total 150 ml 700 ml Balance 150 ml 700 ml Intake Oral 150 ml 700 ml # Voids 3 1 4 # Bowel Movements 0 0 Result Diagram: 08/01/1615 08/01/1615 Other Results Laboratory Tests Test 07/31/16 07/31/16 08/01/16 04:35 11:22 08:15 White Blood Count 13.8 TH/MM3 15.9 TH/MM3 14.9 TH/MM3 Red Blood Count 4.67 MIL/MM3 4.75 MIL/MM3 5.08 MIL/MM3 Hemoglobin 13.0 GM/DL 13.4 GM/DL 13.9 GM/DL Hematocrit 39.7 % 40.8 % 43.3 % Mean Corpuscular Volume 85.0 FL 85.8 FL 85.2 FL Mean Corpuscular Hemoglobin 27.8 PG 28.2 PG 27.3 PG Mean Corpuscular Hemoglobin 32.7 % 32.9 % 32.0 % Concent Red Cell Distribution Width 14.5 % 14.7 % 14.7 % Platelet Count 287 TH/MM3 301 TH/MM3 275 TH/MM3 Mean Platelet Volume 7.9 FL 8.3 FL 8.7 FL Neutrophils (%) (Auto) 71.6 % 76.9 % 73.6 % Lymphocytes (%) (Auto) 17.2 % 13.1 % 15.6 % Monocytes (%) (Auto) 10.4 % 9.0 % 9.3 % Eosinophils (%) (Auto) 0.4 % 0.6 % 0.8 % Basophils (%) (Auto) 0.4 % 0.4 % 0.7 % Neutrophils # (Auto) 9.9 TH/MM3 12.3 TH/MM3 11.0 TH/MM3 Lymphocytes # (Auto) 2.4 TH/MM3 2.1 TH/MM3 2.3 TH/MM3 Monocytes # (Auto) 1.4 TH/MM3 1.4 TH/MM3 1.4 TH/MM3 Eosinophils # (Auto) 0.1 TH/MM3 0.1 TH/MM3 0.1 TH/MM3 Basophils # (Auto) 0.1 TH/MM3 0.1 TH/MM3 0.1 TH/MM3 CBC Comment DIFF FINAL DIFF FINAL DIFF FINAL Differential Comment Sodium Level 138 MEQ/L 139 MEQ/L Potassium Level 4.1 MEQ/L 4.3 MEQ/L Chloride Level 107 MEQ/L 106 MEQ/L Carbon Dioxide Level 24.3 MEQ/L 24.6 MEQ/L Anion Gap 7 MEQ/L 8 MEQ/L Blood Urea Nitrogen 19 MG/DL 17 MG/DL Creatinine 0.66 MG/DL 0.68 MG/DL Estimat Glomerular Filtration 87 ML/MIN 84 ML/MIN Rate Random Glucose 111 MG/DL 111 MG/DL Calcium Level 8.9 MG/DL 8.5 MG/DL Hematology Comments Magnesium Level 2.4 MG/DL Imaging Last Impressions Head/Brain Mag Res Venography 07/30/16 0000 Signed Impressions: Service Date/Time: Saturday, July 30, 2016 18:22 - CONCLUSION: No venous thrombosis. Roly Arriaga MD Carotid Artery Ultrasound 07/30/16 0000 Signed Impressions: Service Date/Time: Saturday, July 30, 2016 22:30 - CONCLUSION: Moderate atherosclerotic disease on the left is confirmed visually with a prominent ratio of peak systolic velocities of 3.0 on the left. Mild disease on the right Uzair Cerna MD Brain MRI 07/30/16 0000 Signed Impressions: Service Date/Time: Saturday, July 30, 2016 18:22 - CONCLUSION: 1. Extensive nonspecific white matter changes. 2. No acute infarction. 3. No abnormal enhancement. Roly Arriaga MD Head CT 07/29/16 0947 Signed Impressions: Service Date/Time: Friday, July 29, 2016 10:51 - CONCLUSION: No acute intracranial findings. Juan Jose Kessler MD Neck CTA 07/29/16 Signed Impressions: Service Date/Time: Friday, July 29, 2016 10:56 - CONCLUSION: 1. Diffuse atherosclerotic disease. 2. Moderate grade stenosis of the left internal carotid artery at the carotid bulb and mild stenosis of the right internal carotid artery at the carotid bulb. 3. Right internal carotid artery courses medially into the submucosal region of the retropharyngeal soft tissues. Juan Jose Kessler MD Lumbar Puncture Fluoroscopy 07/29/16 Signed Impressions: Service Date/Time: Friday, July 29, 2016 19:33 - CONCLUSION: Uncomplicated fluoroscopically guided lumbar puncture with pressures as above. Otoniel Falcon Jr., MD Head CTA 07/29/16 Signed Impressions: Service Date/Time: Friday, July 29, 2016 10:56 - CONCLUSION: Brain CTA within normal limits. Juan Jose Kessler MD Objective Remarks General: NAD, AAOx3 Chest: CTA Cardiac: Regular Abd: +BS, soft ND/NT Ext: No edema A/P Problem List: (1) Fever Status: Acute Plan: - Pt is 76 yo female with DM/HTN/COPD who presented with 1 day hx of "sinus/ cold sx's," fever, right retroorbital h/a, vomiting, and intermittent confusion/lethargy. - She presented to [facility] ED with fever, leukocytosis. - CT imaging negative for bleed. - ED spoke to ID and advised LP..Failed attempts at P.O. ED - emperic antibiotics/antivirals given, - cardene gtt initiated - pt transfer to [place] for LP with IR. - carotid dz noted. - Pt ambulating in the room today (07/31/16) and requesting discharge - LP studies, (07/29/16) - gram stain negative - C&S shows NO growth - appreciate input from ID - Pt felt to NOT have meningitis - pt started on augmentin for sinusitis (2) Altered mental status Status: Acute Plan: see above (3) MORELAND (headache) Status: Acute Plan: see above (4) HTN (hypertension) Status: Acute Plan: - BP control has been a problem throughout this hospitalization - Pt was on Cardene drip, now off - Pt's BP was elevated this AM, despite morning lisinopril an prn IV vasotec - will start Procardia XL - possible that hypertensive encephalopathy may have contributed to pt's presentation with AMS - if BP control improves with procardia XL, then will d/c to home 08/01/16 (5) DM (diabetes mellitus) Status: Chronic Plan: - stable - SSI - OHA on hold, will likely resume upon discharge (6) COPD (chronic obstructive pulmonary disease) Status: Chronic Plan: home inhaler. duonebs prn (7) Left-sided carotid artery disease Status: Acute Plan: - left carotid abnormal on US - Left carotid US (07/30/16) Moderate atherosclerotic disease on the left is confirmed visually with a prominent ratio of peak systolic velocities of 3.0 on the left - Case d/w Dr. Gomez, he will consult Problem Qualifiers (1) Fever: Qualified Code: R50.9 - Fever, unspecified fever cause (2) Altered mental status: Qualified Code: R41.82 - Altered mental status, unspecified altered mental status type (3) MORELAND (headache): Qualified Code: R51 - Nonintractable headache, unspecified chronicity pattern, unspecified headache type (4) DM (diabetes mellitus): Qualified Code: E11.8 - Type 2 diabetes mellitus with complication, without long-term current use of insulin Donna Caldera Aug 01, 2016 14:51
[2016-08-01] MEDS ORDERED: NIFE60TA58 PO (15:02)
--- NOTE | 2016-08-01 15:33 | HHI.DS ---
Discharge Summary Admission Date Jul 29, 2016 at 14:46 Discharge Date: Aug 01, 2016 Admitting Diagnosis MORELAND, AMS (1) Fever Diagnosis: Principal (2) Altered mental status Diagnosis: Principal (3) MORELAND (headache) Diagnosis: Secondary (4) HTN (hypertension) Diagnosis: Secondary (5) DM (diabetes mellitus) Diagnosis: Secondary (6) COPD (chronic obstructive pulmonary disease) Diagnosis: Secondary (7) Left-sided carotid artery disease Diagnosis: Secondary Consultants Dr. Yolis Guerrero- Neurology Dr. Kim Corea - ID Dr. Scout Gomez - Vascular surgery Brief History Pt is 76 yo dm/htn/copd. Presented with 1 day hx of "sinus/cold sx's", fever, right retroorbital h/a, vomiting, and intermittent confusion/lethargy. She presented to [place] ED with fever, leukocytosis. CT imaging negative for bleed. ED spoke to ID and advised LP..Failed attempts at P.O. ED but emperic antibiotics/antivirals given, cardene gtt initiated...pt transferred here for LP today with IR. ...currently pt more awake/alert than described to me by ED...?abx CBC/BMP: 08/01/16 0815 08/01/16 0815 Significant Findings Laboratory Tests Test 07/29/16 07/30/16 07/31/16 07/31/16 19:22 05:02 04:35 11:22 CSF RBC (Tube 4) 3 /MM3 (NONE) CSF Glucose 83 MG/DL (40-80) CSF Total Protein 63.2 MG/DL (15.0-45.0) White Blood Count 15.6 TH/MM3 13.8 TH/MM3 15.9 TH/MM3 (4.0-11.0) (4.0-11.0) (4.0-11.0) Neutrophils (%) (Auto) 70.8 % 71.6 % 76.9 % (16.0-70.0) (16.0-70.0) (16.0-70.0) Monocytes (%) (Auto) 11.1 % 10.4 % 9.0 % (0.0-8.0) (0.0-8.0) (0.0-8.0) Neutrophils # (Auto) 11.0 TH/MM3 9.9 TH/MM3 12.3 TH/MM3 (1.8-7.7) (1.8-7.7) (1.8-7.7) Monocytes # (Auto) 1.7 TH/MM3 1.4 TH/MM3 1.4 TH/MM3 (0-0.9) (0-0.9) (0-0.9) Potassium Level 3.4 MEQ/L (3.5-5.1) Blood Urea Nitrogen 19 MG/DL (7-18) 19 MG/DL (7-18) Estimat Glomerular Filtration 78 ML/MIN (>89) 87 ML/MIN (>89) Rate Random Glucose 117 MG/DL 111 MG/DL (74-106) (74-106) Calcium Level 8.4 MG/DL (8.5-10.1) Test 08/01/16 08:15 White Blood Count 14.9 TH/MM3 (4.0-11.0) Neutrophils (%) (Auto) 73.6 % (16.0-70.0) Monocytes (%) (Auto) 9.3 % (0.0-8.0) Neutrophils # (Auto) 11.0 TH/MM3 (1.8-7.7) Monocytes # (Auto) 1.4 TH/MM3 (0-0.9) Estimat Glomerular Filtration 84 ML/MIN (>89) Rate Random Glucose 111 MG/DL (74-106) Imaging Last Impressions Head/Brain Mag Res Venography 07/30/16 0000 Signed Impressions: Service Date/Time: Saturday, July 30, 2016 18:22 - CONCLUSION: No venous thrombosis. Roly Arriaga MD Carotid Artery Ultrasound 07/30/16 0000 Signed Impressions: Service Date/Time: Saturday, July 30, 2016 22:30 - CONCLUSION: Moderate atherosclerotic disease on the left is confirmed visually with a prominent ratio of peak systolic velocities of 3.0 on the left. Mild disease on the right Uzair Cerna MD Brain MRI 07/30/16 0000 Signed Impressions: Service Date/Time: Saturday, July 30, 2016 18:22 - CONCLUSION: 1. Extensive nonspecific white matter changes. 2. No acute infarction. 3. No abnormal enhancement. Roly Arriaga MD Head CT 07/29/16 0947 Signed Impressions: Service Date/Time: Friday, July 29, 2016 10:51 - CONCLUSION: No acute intracranial findings. Juan Jose Kessler MD Neck CTA 07/29/16 0000 Signed Impressions: Service Date/Time: Friday, July 29, 2016 10:56 - CONCLUSION: 1. Diffuse atherosclerotic disease. 2. Moderate grade stenosis of the left internal carotid artery at the carotid bulb and mild stenosis of the right internal carotid artery at the carotid bulb. 3. Right internal carotid artery courses medially into the submucosal region of the retropharyngeal soft tissues. Juan Jose Kessler MD Lumbar Puncture Fluoroscopy 07/29/16 0000 Signed Impressions: Service Date/Time: Friday, July 29, 2016 19:33 - CONCLUSION: Uncomplicated fluoroscopically guided lumbar puncture with pressures as above. Otoniel Falcon Jr., MD Head CTA 07/29/16 0000 Signed Impressions: Service Date/Time: Friday, July 29, 2016 10:56 - CONCLUSION: Brain CTA within normal limits. Juan Jose Kessler MD PE at Discharge General: NAD, AAOx3 Chest: CTA Cardiac: Regular Abd: +BS, soft ND/NT Ext: No edema Hospital Course Pt is 76 yo DM.HTN/COPD who presented to the ED at [facility] on 07/29/16 with 1 day hx of "sinus/cold sx's," fever, right retroorbital h/a, vomiting, and intermittent confusion/lethargy. In the [place] ED she was noted to have fever and leukocytosis. CT Head was negative for bleed. Brain CTA was negative for any acute abnormalities. Neck CTA noted diffuse atherosclerotic disease, moderate grade stenosis of the left internal carotid artery at the carotid bulb and mild stenosis of the right internal carotid artery at the carotid bulb, right internal carotid artery courses medially into the submucosal region of the retropharyngeal soft tissues. Pt was initially was given Rocephin, Vancomycin, and Acyclovir in the ED. Blood cultures were in the ED with NGTD. A lumbar puncture was attempted multiple times unsuccessfully in the ED and pt was transferred to [facility] for LP with IR and ID consultation. Urine studies were not suggestive of a UTI. A lumbar puncture was performed on which showed mild elevation in protein but cell count as well as glucose were within normal limits. CSF culture with no growth. Patient was started on empiric antibiotics for meningitis, including acyclovir for possible herpes meningitis. It was not felt that the patient has meningitis. Given her initial symptoms of headaches, sinus symptoms and fevers bacterial sinusitis was considered as patient feels better on antibiotics. Her antibiotics were changed to oral Augmentin (for possible bacterial sinusitis for short 5 day course), but pt had facial and neck flushing and diarrhea with the Augmentin so this will not be continued at discharge. Given patients findings on CTA with moderate degree of stenosis at risk for CVA pt was recommend MRI brain to look for structural abnormalities or orbital issues given symptoms. Brain MRI (07/30) noted extensive nonspecific white matter changes, no acute infarction and no abnormal enhancement. Neurology was consulted. Pt had MRV (07/30) which was negative for venous thrombosis and Carotid US (07/30) which noted moderate atherosclerotic disease on the left is confirmed visually with a prominent ratio of peak systolic velocities of 3.0 on the left and mild disease on the right. Vascular surgery was consulted and evaluated imaging studies. They felt that the pt has mild cerebrovascular disease with velocities c/w barely above 50 % stenosis and that her symptoms at admission were not consistent with carotid disease. Vascular surgery recommended f/u in 6m with carotid duplex. Pt was also recommended to have an Ophthalmology eval as outpatient for the headaches. Pts BP in the ED was also significantly elevated and she was initiated on a Cardene gtt which was able to be weaned off. She was resumed on her Lisinopril 20mg po BID and Inderal 20mg Q12H but was still having significant elevation in her BP. It was considered that the pts initial AMS could possibly be secondary to hypertensive encephalopathy. Pt was initiated on Procardia XL 30mg po daily with some improvement in her BP control. This may need further modification as an outpt for optimal BP control. Pt was instructed to keep a BP log to give to her PCP, Dr. العلي. Pt is to followup with her PCP, Dr. لاعلي in 1 week. Pt is to followup with Dr. Gomez in 4-6 months Pt is to followup with Dr. Ray Whitley in 2 weeks Pt is to followup with Dr. Lagos in 4 weeks Of note, pt has had some issues intermittently with diarrhea but has a hx of diarrhea issues. If she continues to have diarrhea following discharge she may need stool studies to r/o C. diff. Pt Condition on Discharge: Stable Discharge Disposition: Discharge Home Discharge Instructions DIET: Follow Instructions for: Diabetic Diet Speech Therapy-Diet Recommends: Regular Activities you can perform: Regular-No Restrictions Follow up Referrals: Neurology - 1 Month with Cesar Lagos MD Ophthalmology - [address] Whitley PCP Follow-up - [address] العلي Vascular Surgery - 6 Months with Scout Gomez MD New Medications: Nifedipine ER 24 HR (Nifedipine ER 24 HR) 60 Mg Tab 60 MG PO DAILY htn #30 Ref 0 TAB Continued Medications: Albuterol 18 GM Inh (Ventolin Hfa 18 GM Inh) 90 Mcg/Act Aer 2 PUFF INH Q4-6H PRN SHORTNESS OF BREATH #1 Ref [address] (Aspirin 81) 81 Mg Tabdr 81 MG PO DAILY Ref 0 TAB Bacillus Coagulans (Probiotic) 1 Each Tab.chew Diphenoxylate-Atropine (Diphenoxylate-Atropine) 2.5-0.025 Mg Tab 1 TAB PO Q8HR PRN DIARRHEA Ref 0 TAB Lisinopril (Lisinopril) 20 Mg Tab 20 MG PO BID #30 Ref 0 TAB Lovastatin (Lovastatin) 20 Mg Tab 20 MG PO BID Cholesterol Management #30 Ref 0 TAB Metformin (Metformin) 500 Mg Tab 500 MG PO BIDPC With meals Blood Sugar Management #60 Ref 0 TAB Propranolol (Propranolol) 20 Mg Tab 20 MG PO Q12HR #60 Ref 0 TAB Umeclidinium-Vilanterol Inh (Anoro Ellipta Inh) 62.5-25 Mcg/Act Aero 1 PUFF INH DAILY COPD #1 Ref 0 INHALER Discontinued Medications: Hydrochlorothiazide (Hydrochlorothiazide) 25 Mg Tab 25 MG PO DAILY #30 Ref 0 TAB Additional Information Patient examined. Assessment and plan formulated with Donna LOMELI I agree with the above. Donna Caldera Aug 01, 2016 15:33 Neftaly Khan DO Aug 02, 2016 22:20
--- NOTE | 2016-08-01 15:34 | HHI.DCPOC ---
Discharge Care Plan Diagnosis: (1) Altered mental status (2) MORELAND (headache) (3) HTN (hypertension) (4) Left-sided carotid artery disease (5) Fever (6) DM (diabetes mellitus) (7) COPD (chronic obstructive pulmonary disease) Goals to Promote Your Health - Pt is to followup with her PCP, Dr. العلي in 1 week, call for an appt. - Pt is to followup with Dr. Gomez in 4-6 months, call for an appt. ( Vascular surgery) - Pt is to followup with Dr. Ray Whitley in 2 weeks, call for an appt. ( Ophthalmology regarding the headaches) - Pt is to followup with Dr. Lagos in 4 weeks, call for an appt (Neurology) Directions to Meet Your Goals Take your medications as prescribed Follow your dietary instruction Follow activity as directed Keep your appointments as scheduled Take your immunizations and boosters as scheduled If your symptoms worsen call your PCP, if no PCP go to Urgent Care Center or Emergency Room Smoking is Dangerous to Your Health. Avoid second hand smoke Call the 24-hour hour crisis hotline for domestic abuse at Donna Caldera Aug 01, 2016 15:34 Neftaly Khan DO Aug 02, 2016 22:21
[2016-08-01 19:53] LABS: CSF CRYPTOCOCCUS AG CONF ND (NOT DETECTD)
== END 2016-08-01 18:32 | disposition home or self-care (01) | DRG 97 ==
LOC: PHED 09:24 → PHEDA 14:46 → HIMN 17:50 → N05B 08-01 02:28
PROVIDERS: ADMIT Hospitalist; ATTEND Hospitalist
PROC: 009U3ZX Drainage of Spinal Canal, Percutaneous Approach, Diagnostic (ICD-10-PCS; principal; 2016-07-29)
DX: G03.9 Meningitis, unspecified (principal); G93.40 Encephalopathy, unspecified; E11.8 Type 2 diabetes mellitus with unspecified complications; I65.23 Occlusion and stenosis of bilateral carotid arteries; J44.9 Chronic obstructive pulmonary disease, unspecified; E78.5 Hyperlipidemia, unspecified; I10 Essential (primary) hypertension; K21.9 Gastro-esophageal reflux disease without esophagitis; K58.0 Irritable bowel syndrome with diarrhea; Z86.73 Personal history of transient ischemic attack (TIA), and cerebral infarction without residual deficits
CPT/HCPCS: 62270; 70450; 70496; 70498; 70546; 70553; 77003; 80048; 80053; 81001; 82945; 82948; 83735; 84157; 85025; 85610; 85652; 85730; 86140; 86403; 87040; 87070; 87205; 87529; 87641; 89051; 93880; 96365; 96374; 96375; A9579; J0696; J0780; J1200; J1815; J2060; J3370; J7040; J7050; Q9967

== ENCOUNTER 2016-08-04 14:31 | Inpatient (IN) | payer MEDICARE ==
[~2016-08-04] VITALS: Ht 157.5 cm; Wt 81.3 kg
[~2016-08-04 14:31] MED LIST changes: -ASAC400T PO; +ASPI-110 PO; -BABY81CH PO; +BACI1TAB2; -DILT180C PO; +DIPH2.5T14 PO; -FISH100020 PO; -GLUCTAB PO; -HYDR-2768 PO; -LACTCAP7 PO; -LISI-363 PO; +LISI-515 PO; -LOMO2.5T PO; +LOVA20TA PO; +METF500T PO; -MEVA40TA PO; -MULT-65 PO; +NIFE60TA58 PO; +PROP20TA3 PO; +UMEC1AER INH
[2016-08-04 14:33] VITALS: BP 160/72; PULSE 84; RESP 20; TEMP 97.8; O2SAT 95
--- NOTE | 2016-08-04 14:47 | PD ---
Physical Exam Date Seen by Provider: Aug 04, 2016 Time Seen by Provider: 14:45 Data Data Last Documented VS Vital Signs Date Time Temp Pulse Resp B/P Pulse Ox O2 Delivery O2 Flow Rate FiO2 08/04/16 14:33 97.8 84 20 160/72 95 Room Air MDM Supervised Visit with TRENA: No Narrative Course 76 YO F with complaint of watery diarrhea since d/c'd from hospital 08/01. Dr. Tanner sent for possible c. diff colitis. Vitals reviewed. Awaiting bed placement. Anabel Abrams Aug 04, 2016 14:46
[2016-08-04 16:45] LABS: AUTOMATED NEUTROPHIL # 19.1 TH/MM3 (1.8-7.7); BASOPHIL # 0.1 TH/MM3 (0-0.2); BASOPHIL % 0.4 % (0.0-2.0); EOSINOPHIL # 0.1 TH/MM3 (0-0.4); EOSINOPHIL % 0.4 % (0.0-4.0); HEMATOCRIT 38.2 % (35.0-46.0); LYMPH % 9.2 % (9.0-44.0); LYMPHOCYTE # 2.2 TH/MM3 (1.0-4.8); MEAN CELL VOLUME 84.1 FL (80.0-100.0); MEAN CORPUSCULAR HEMOGLOBIN 28.7 PG (27.0-34.0); MEAN CORPUSCULAR HGB CONC 34.1 % (32.0-36.0); MONO % 9.8 % (0.0-8.0); NEUT % 80.2 % (16.0-70.0); PLATELET COUNT 213 TH/MM3 (150-450); RED BLOOD COUNT 4.55 MIL/MM3 (4.00-5.30); RED CELL DISTRIBUTION WIDTH 15.1 % (11.6-17.2); WHITE BLOOD COUNT 23.8 TH/MM3 (4.0-11.0)
[2016-08-04 16:51] LABS: HEMO FLAGS AUTO DIFF
[2016-08-04 16:56] LABS: ALT (GPT) 40 U/L (10-53)
[2016-08-04 16:58] LABS: ALKALINE PHOSPHATASE 98 U/L (45-117); TOTAL BILIRUBIN ADULT 0.3 MG/DL (0.2-1.0)
[2016-08-04 16:59] LABS: ANION GAP 12 MEQ/L (5-15); AST (GOT) 58 U/L (15-37); BICARBONATE 21.2 MEQ/L (21.0-32.0); BLOOD UREA NITROGEN 8 MG/DL (7-18); CHLORIDE 103 MEQ/L (98-107); GLOMERULAR FILTRATION RATE 97 ML/MIN (>89); SODIUM (NA) 136 MEQ/L (136-145)
[2016-08-04 17:02] LABS: POTASSIUM 4.3 MEQ/L (3.5-5.1)
[2016-08-04 17:14] LABS: OVALOCYTES 1+ (NORMAL); PLATELET ESTIMATE SMEAR NORMAL (NORMAL); PLATELET MORPHOLOGY NORMAL (NORMAL)
[2016-08-04 17:15] LABS: SCAN/DIFF AUTO DIFF CONFIRMED
[2016-08-04] MEDS ORDERED: SODIUM CHLOR 0.9% 1000 ML INJ 1,000 ML IV ONE (17:30)
[2016-08-04] MEDS ORDERED: metroNIDAZOLE 500 MG INJ 100 ML IV ONE (17:30)
--- NOTE | 2016-08-04 17:32 | PD ---
HPI Chief Complaint: GI Complaint Time Seen by Provider: 15:36 Travel History International Travel<30 days: No Contact w/Intl Traveler<30days: No Traveled to known affect area: No History of Present Illness HPI This is a 76-year-old female who was just recently discharged from the hospital for stay to rule out bacterial meningitis, presenting to the emergency department with about 5 days of diarrhea. She says she's been having copious watery stools. She just had a little bit of blood in her stool today. She denies any fevers or chills. She has cramping all over her abdomen which is mild and nonradiating. She denies any vomiting but doesn't feel like eating much. She has been a little bit lightheaded and dizzy and has been weaker than normal. During her hospital stay she was on multiple antibiotics. PFSH Past Medical History Arthritis: Yes Heart Rhythm Problems: Yes (has felt a "flip-flopping" of heart in past, not enough to bring in to ED) Cancer: No Cardiac Catheterization: No Cardiovascular Problems: Yes (TACHYARRHYTHMIA) High Cholesterol: Yes (high cholesterol) Congestive Heart Failure: No COPD: Yes Cerebrovascular Accident: Yes Diabetes: Yes Patient Takes Glucophage: No Diminished Hearing: No Endocrine: Yes Gastrointestinal Disorders: Yes (IBS) Genitourinary: No Headaches: Yes Hepatitis: No Hiatal Hernia: Yes Hypertension: Yes Immune Disorder: No Musculoskeletal: No Neurologic: Yes (CVA 10 years ago) Psychiatric: Yes (VERY CLAUSTRAPHOBIC, ANXIETY) Reproductive: No Respiratory: Yes (ASTHMA) Migraines: No Thyroid Disease: No Past Surgical History AICD: No Coronary Artery Bypass Graft: No Eye Surgery: Yes (LEFT CATARACT ) Gynecologic Surgery: Yes (hysterectomy) Hysterectomy: Yes Joint Replacement: No Pacemaker: No Family History Family Myocardial Infarction: Yes (mother) Social History Alcohol Use: No Tobacco Use: No (quit "20 years ago") Substance Use: No Allergies-Medications (Allergen,Severity, Reaction): Coded Allergies: Codeine (Verified Adverse Reaction, Unknown, NAUSEA, 07/29/16) Reported Meds & Prescriptions Reported Meds & Active Scripts Active Nifedipine ER 24 HR (Nifedipine) 60 Mg Tab 60 Mg PO DAILY Reported Anoro Ellipta Inh (Umeclidinium/Vilanterol) 62.5-25 Mcg/Act Aero 1 Puff INH DAILY Propranolol (Propranolol HCl) 20 Mg Tab 20 Mg PO Q12HR Ventolin Hfa 18 GM Inh (Albuterol Sulfate) 90 Mcg/Act Aer 2 Puff INH Q4-6H PRN Probiotic (Bacillus Coagulans) 1 Each Tab.chew Lisinopril 20 Mg Tab 20 Mg PO BID Lovastatin 20 Mg Tab 20 Mg PO BID Aspirin 81 (Aspirin) 81 Mg Tabdr 81 Mg PO DAILY Diphenoxylate-Atropine 2.5-0.025 Mg Tab 1 Tab PO Q8HR PRN Metformin (Metformin HCl) 500 Mg Tab 500 Mg PO BIDPC With meals Review of Systems Except as stated in HPI: all other systems reviewed are Neg Physical Exam Narrative GENERAL:Well appearing, no acute distress SKIN: Focused skin assessment warm and dry. HEAD: Atraumatic. Normocephalic. EYES: Pupils equal and round. No injection or drainage. ENT: Dry mucous membranes NECK: Trachea midline. SKIN: dry with skin tenting CARDIOVASCULAR: Regular rate and rhythm. No murmur appreciated. RESPIRATORY: Clear to auscultation. Breath sounds equal bilaterally. GASTROINTESTINAL: Abdomen soft, non-tender, nondistended. MUSCULOSKELETAL: No obvious deformities. NEUROLOGICAL: Awake and alert. No obvious cranial nerve deficits. Moving all extremities PSYCHIATRIC: Appropriate mood and affect; insight and judgment normal. Data Data Last Documented VS Vital Signs Date Time Temp Pulse Resp B/P Pulse Ox O2 Delivery O2 Flow Rate FiO2 08/04/16 14:33 97.8 84 20 160/72 95 Room Air Orders Complete Blood Count With Diff (08/04/16 15:54) Comprehensive Metabolic Panel (08/04/16 15:54) C Diff Toxin Pcr (08/04/16 15:54) Blood Culture (08/04/16 17:23) Lactic Acid (08/04/16 17:23) Sodium Chlor 0.9% 1000 Ml Inj (Ns 1000 M (08/04/16 17:30) Metronidazole 500 Mg Inj (Flagyl 500 Mg (08/04/16 17:30) Admit Order (Ed Use Only) (08/04/16 17:38) Admit To Inpatient (08/04/16 ) Code Status (08/04/16 17:36) Vital Signs (Adult) Q4H (08/04/16 17:36) Activity Oob With Assistance (08/04/16 17:36) Chief Analytics Officer / Telemetry .CONTINUOUS (08/04/16 17:36) Diet Heart Healthy (08/04/16 Dinner) Sodium Chloride 0.9% Flush (Ns Flush) (08/04/16 17:45) Sodium Chloride 0.9% Flush (Ns Flush) (08/04/16 21:00) Acetaminophen (Tylenol) (08/04/16 17:45) Ondansetron Inj (Zofran Inj) (08/04/16 17:45) Temazepam (Restoril) (08/04/16 17:45) Basic Metabolic Panel (Bmp) (08/05/16 06:00) Complete Blood Count With Diff (08/05/16 06:00) Chest, Single Ap (08/04/16 17:36) Electrocardiogram (08/04/16 17:36) Pt Request For Service (08/04/16 17:36) Scd Bilateral/Knee High ERIN.BID (08/04/16 17:36) Naloxone Inj (Narcan Inj) (08/04/16 17:45) Inpatient Certification (08/04/16 ) Ns + Kcl 20 Meq Inj (Ns + Kcl 20 Meq Inj (08/04/16 17:45) Metronidazole (Flagyl) (08/04/16 22:00) Aspirin Ec (Ecotrin Ec) (08/05/16 09:00) Lisinopril (Prinivil) (08/04/16 21:00) Nifedipine Sr (Procardia Xl) (08/05/16 09:00) Propranolol (Inderal) (08/04/16 21:00) Umeclidin-Vilanter 62.5-25 Inh (Anoro-El (08/05/16 09:00) Labs Laboratory Tests Test 08/04/16 16:15 White Blood Count 23.8 TH/MM3 Red Blood Count 4.55 MIL/MM3 Hemoglobin 13.0 GM/DL Hematocrit 38.2 % Mean Corpuscular Volume 84.1 FL Mean Corpuscular Hemoglobin 28.7 PG Mean Corpuscular Hemoglobin 34.1 % Concent Red Cell Distribution Width 15.1 % Platelet Count 213 TH/MM3 Mean Platelet Volume 8.2 FL Neutrophils (%) (Auto) 80.2 % Lymphocytes (%) (Auto) 9.2 % Monocytes (%) (Auto) 9.8 % Eosinophils (%) (Auto) 0.4 % Basophils (%) (Auto) 0.4 % Neutrophils # (Auto) 19.1 TH/MM3 Lymphocytes # (Auto) 2.2 TH/MM3 Monocytes # (Auto) 2.3 TH/MM3 Eosinophils # (Auto) 0.1 TH/MM3 Basophils # (Auto) 0.1 TH/MM3 CBC Comment AUTO DIFF Differential Comment AUTO DIFF CONFIRMED Platelet Estimate NORMAL Platelet Morphology Comment NORMAL Ovalocytes 1+ Sodium Level 136 MEQ/L Potassium Level 4.3 MEQ/L Chloride Level 103 MEQ/L Carbon Dioxide Level 21.2 MEQ/L Anion Gap 12 MEQ/L Blood Urea Nitrogen 8 MG/DL Creatinine 0.60 MG/DL Estimat Glomerular Filtration 97 ML/MIN Rate Random Glucose 120 MG/DL Calcium Level 9.0 MG/DL Total Bilirubin 0.3 MG/DL Aspartate Amino Transf 58 U/L (AST/SGOT) Alanine Aminotransferase 40 U/L (ALT/SGPT) Alkaline Phosphatase 98 U/L Total Protein 6.7 GM/DL Albumin 3.1 GM/DL [facility] Medical Decision Making Medical Screen Exam Complete: Yes Emergency Medical Condition: Yes Medical Record Reviewed: Yes (pt was just admitted and received broad spectrum antibiotics for r/o bacterial meningitis) Interpretation(s) Afebrile, hypertensive, no tachycardia leukocytosis 80 % neutrophils Electrolytes are reassuring Differential Diagnosis C. difficile colitis, gastroenteritis, dehydration, electrolyte abnormality Narrative Course This is a 76-year-old female who presents to the emergency department with copious diarrhea that started ever since she was admitted for broad-spectrum antibiotics in the hospital. She has a benign abdominal exam. Based on her history I suspect this is C. difficile colitis. She has reassuring vital signs but on exam is dehydrated in appearance with dry skin dry mucous membranes. She was given a liter of IV fluids in the emergency department. White blood cell count is over 20. Electrolytes are reassuring. Cultures were obtained but at this point I think it's reasonable to start her on Flagyl and I think her leukocytosis is secondary to C. difficile. I discussed this with Dr. Khan. Physician Communication Physician Communication Discussed with Dr. Khan Diagnosis Primary Impression: Diarrhea Qualified Code: A09 - Diarrhea of presumed infectious origin Admitting Information Admitting Physician Requests: Admit Sanjuana Wick MD Aug 04, 2016 17:32
--- NOTE | 2016-08-04 17:44 | HHI.HP ---
HPI Service [facility] Hospitalists Primary Care Physician Marques العلي MD Admission Diagnosis diarrhea, likely c diff colitis Travel History International Travel<30 Days: No Contact w/Intl Traveler <30 Da: No Traveled to Known Affected Are: No History of Present Illness Pt previously admitted to [facility] 07/29 - 08/01/16. Pt was admitted d/t AMS and c/ o meningitis. Pt initially treated with broad spectrum antibiotic therapy. Pt was seen by ID and meningitis was felt unlikely. Pt was also noted to have accelerated HTN upon previous admission and treated with IV cardene drip. Hypertensive encephalopathy may have played a role with pt's AMS. Pt now readmitted with c/o copious diarrhea and abdominal pain. Pt has h/o problems with chronic diarrhea, but she felt that the volume of diarrhea was increased. In the ER, pt's WBC was 23.8K. C. Dif PCR was ordered. Pt was started on flagyl for presumptive C. Dif and admitted to [facility] for further evaluation and treatment. Review of Systems Constitutional: DENIES: Diaphoretic episodes, Fatigue, Fever, Weight gain, Weight loss, Chills, Dizziness, Change in appetite, Night Sweats Endocrine: DENIES: Abnorml menstrual pattern, Heat/cold intolerance, Polydipsia , Polyuria, Polyphagia Eyes: DENIES: Blurred vision, Diplopia, Eye inflammation, Eye pain, Vision loss , Photosensitivity, Double Vision Ears, nose, mouth, throat: DENIES: Tinnitus, Hearing loss, Vertigo, Nasal discharge, Oral lesions, Throat pain, Hoarseness, Ear Pain, Running Nose, Epistaxis, Sinus Pain, Toothache, Odynophagia Respiratory: DENIES: Apneas, Cough, Snoring, Wheezing, Hemoptysis, Sputum production, Shortness of breath Cardiovascular: DENIES: Chest pain, Palpitations, Syncope, Dyspnea on Exertion , PND, Lower Extremity Edema, Orthopnea, Claudication Gastrointestinal: COMPLAINS OF: Abdominal pain, Diarrhea, See HPI, DENIES: Black stools, Bloody stools, BRB per rectum, Constipation, GERD, Nausea, Reflux , Vomiting, Difficulty Swallowing, Anorexia Genitourinary: DENIES: Urinary frequency, Urinary incontinence, Urgency, Hematuria, Dysuria, Nocturia Musculoskeletal: DENIES: Joint pain, Muscle aches, Stiffness, Joint Swelling, Back pain, Neck pain Integumentary: DENIES: Abnormal pigmentation, Pruritus, Rash, Nail changes, Breast masses, Breast skin changes, Nipple discharge Hematologic/lymphatic: DENIES: Bruising, Lymphadenopathy Immunologic/allergic: DENIES: Eczema, Urticaria Neurologic: DENIES: Abnormal gait, Headache, Localized weakness, Paresthesias, Seizures, Speech Problems, Tremor, Poor Balance Psychiatric: DENIES: Anxiety, Confusion, Mood changes, Depression, Hallucinations, Agitation, Suicidal Ideation, Homicidal Ideation, Delusions, History of Bipolar, History of Schizophrenia Past Family Social History Past Medical History htn dm copd remote cva Past Surgical History 1) left cataract surgery 2) hysterectomy Allergies: Coded Allergies: Codeine (Verified Adverse Reaction, Unknown, NAUSEA, 07/29/16) Family History Non-contributory Social History - former smoker, quit 20 yrs ago - NO alcohol - NO illicit street drugs Physical Exam Vital Signs Vital Signs Date Time Temp Pulse Resp B/P Pulse Ox O2 Delivery O2 Flow Rate FiO2 08/04/16 14:33 97.8 84 20 160/72 95 Room Air Physical Exam GENERAL: This is a well-nourished, well-developed patient, in no apparent distress. SKIN: No rashes, ecchymoses or lesions. Cool and dry. HEAD: Atraumatic. Normocephalic. No temporal or scalp tenderness. EYES: Pupils equal round and reactive. Extraocular motions intact. No scleral icterus. No injection or drainage. ENT: Nose without bleeding, purulent drainage or septal hematoma. Throat without erythema, tonsillar hypertrophy or exudate. Uvula midline. Airway patent. NECK: Trachea midline. No JVD or lymphadenopathy. Supple, nontender, no meningeal signs. CARDIOVASCULAR: Regular rate and rhythm without murmurs, gallops, or rubs. RESPIRATORY: Clear to auscultation. Breath sounds equal bilaterally. No wheezes , rales, or rhonchi. GASTROINTESTINAL: Abdomen soft, non-tender, nondistended. No hepato-splenomegaly , or palpable masses. No guarding. MUSCULOSKELETAL: Extremities without clubbing, cyanosis, or edema. No joint tenderness, effusion, or edema noted. No calf tenderness. Negative Homans sign bilaterally. NEUROLOGICAL: Awake and alert. Cranial nerves II through XII intact. Motor and sensory grossly within normal limits. Five out of 5 muscle strength in all muscle groups. Normal speech. Laboratory Laboratory Tests Test 08/04/16 16:15 White Blood Count 23.8 Red Blood Count 4.55 Hemoglobin 13.0 Hematocrit 38.2 Mean Corpuscular Volume 84.1 Mean Corpuscular Hemoglobin 28.7 Mean Corpuscular Hemoglobin 34.1 Concent Red Cell Distribution Width 15.1 Platelet Count 213 Mean Platelet Volume 8.2 Neutrophils (%) (Auto) 80.2 Lymphocytes (%) (Auto) 9.2 Monocytes (%) (Auto) 9.8 Eosinophils (%) (Auto) 0.4 Basophils (%) (Auto) 0.4 Neutrophils # (Auto) 19.1 Lymphocytes # (Auto) 2.2 Monocytes # (Auto) 2.3 Eosinophils # (Auto) 0.1 Basophils # (Auto) 0.1 CBC Comment AUTO DIFF Differential Comment AUTO DIFF CONFIRMED Platelet Estimate NORMAL Platelet Morphology Comment NORMAL Ovalocytes 1+ Sodium Level 136 Potassium Level 4.3 Chloride Level 103 Carbon Dioxide Level 21.2 Anion Gap 12 Blood Urea Nitrogen 8 Creatinine 0.60 Estimat Glomerular Filtration 97 Rate Random Glucose 120 Calcium Level 9.0 Total Bilirubin 0.3 Aspartate Amino Transf 58 (AST/SGOT) Alanine Aminotransferase 40 (ALT/SGPT) Alkaline Phosphatase 98 Total Protein 6.7 Albumin 3.1 Result Diagram: 08/04/16 1615 08/04/16 1615 Imaging Last Impressions Chest X-Ray 08/04/16 1736 Signed Impressions: Service Date/Time: Thursday, August 04, 2016 18:19 - CONCLUSION: Mild cardiomegaly. Clear lungs. Otoniel Falcon Jr., MD Septic Shock Reassessment Heart: Regular rate and rhythm Lungs: Clear Skin: Warm Peripheral Pulses: Bounding Right Radial Bounding Left Radial Bounding Right Popliteal Bounding Left Popliteal Bounding Right Dorsalis Pedis Bounding Left Dorsalis Pedis Bounding Right Posterior Tibial Bounding Left Posterior Tibial Capillary Refill: Brisk Assessment and Plan Problem List: (1) Diarrhea Status: Acute Plan: - h/o chronic diarrhea, but now more severe than usual - obtain C. Dif PCR - IVF - PO flagyl (2) HTN (hypertension) Status: Acute Plan: - lisinopril, inderal, procardia XL (3) Left-sided carotid artery disease Status: Acute Plan: - Pt to f/u with Dr. Gomez outpt (4) DM (diabetes mellitus) Status: Chronic Plan: - SSI (5) COPD (chronic obstructive pulmonary disease) Status: Chronic Plan: - willy ashby Physician Certification 2 Midnight Certification Type: Admission for Inpatient Services Order for Inpatient Services The services are ordered in accordance with Medicare regulations or non- Medicare payer requirements, as applicable. In the case of services not specified as inpatient-only, they are appropriately provided as inpatient services in accordance with the 2-midnight benchmark. Estimated LOS (days): 3 3 days is the estimated time the patient will need to remain in the hospital, assuming treatment plan goals are met and no additional complications. Post-Hospital Plan: Not yet determined Problem Qualifiers (1) Diarrhea: Qualified Code: A09 - Diarrhea of presumed infectious origin (2) HTN (hypertension): Qualified Code: I10 - Essential hypertension (3) DM (diabetes mellitus): Qualified Code: E11.8 - Type 2 diabetes mellitus with complication, without long-term current use of insulin (4) COPD (chronic obstructive pulmonary disease): Neftaly Khan DO Aug 04, 2016 17:44
[2016-08-04] MEDS ORDERED: ACETAMINOPHEN 325 MG TAB PO PRN (17:45)
[2016-08-04] MEDS ORDERED: SODIUM CHLORIDE 0.9% FLUSH 10 ML FLUSH IV FLUSH PRN (17:45)
[2016-08-04] MEDS ORDERED: RESP: ALBUTEROL 2.5 MG/IPRATROPIUM 0.5 MG NEB (PRN) NEB (17:45)
[2016-08-04] MEDS ORDERED: TEMAZEPAM 15 MG CAP PO PRN (17:45)
[2016-08-04] MEDS ORDERED: NALOXONE HCL 0.4 MG/ML AMP IV PRN (17:45)
[2016-08-04] MEDS ORDERED: DEXTROSE 50% IN WATER 50 ML VIAL(D50) IV PUSH PRN (18:00)
[2016-08-04] MEDS ORDERED: GLUCAGON 1 MG/ML VIAL OTHER PRN (18:00)
--- NOTE | 2016-08-04 18:33 | RADRPT ---
EXAM DATE/TIME: 08/04/2016 18:19 [facility] COMPARISON: No previous studies available for comparison. INDICATIONS : Cough MEDICAL HISTORY : Hypercholesterolemia. Hypertension. Chronic obstructive pulmonary disease. Cerebrovascular accident. Hiatal hernia. Arthritis. Diabetes. SURGICAL HISTORY : None. ENCOUNTER: Initial ACUITY: 1 day PAIN SCORE: 0/10 LOCATION: Bilateral chest FINDINGS: A single view of the chest demonstrates the lungs to be symmetrically aerated without evidence of mas s, infiltrate or effusion. Mild cardiomegaly. Osseous structures are intact. CONCLUSION: Mild cardiomegaly. Clear lungs. Otoniel Falcon Jr., MD on August 04, 2016 at 18:30 Board Certified Radiologist. This report was verified electronically.
[2016-08-04] MEDS: NS + KCL 20 MEQ INJ 1,000 ML IV SCH (18:35)
[2016-08-04] MEDS: PANTOPRAZOLE SODIUM 40 MG VIAL IV PUSH SCH (18:36)
[2016-08-04] MEDS ORDERED: NIFEdipine 20 MG CAP PO ONE (18:45)
[2016-08-04 18:51] VITALS: BP 207/98; PULSE 76; RESP 20; O2SAT 96
[2016-08-04] MEDS ORDERED: LISINOPRIL 20 MG TAB PO ONE (19:15)
[2016-08-04 19:57] VITALS: BP 181/75; PULSE 79; RESP 22; O2SAT 95
[2016-08-04 20:33] VITALS: BP 150/64; PULSE 83; RESP 22; O2SAT 93
[2016-08-04 21:00] VITALS: BP 166/72; PULSE 87; RESP 18; TEMP 97.4; O2SAT 94
[2016-08-04] MEDS: INSULIN ASPART SUPPLEMENTAL SCALE SQ SCH (21:00)
[2016-08-04] MEDS: SODIUM CHLORIDE 0.9% FLUSH 10 ML FLUSH IV FLUSH SCH (21:00)
[2016-08-04 21:39] VITALS: PULSE 84
[2016-08-04] MEDS: PROPRANOLOL HCL 20 MG TAB PO SCH (22:03)
[2016-08-04] MEDS: LISINOPRIL 20 MG TAB PO SCH (22:03)
[2016-08-04] MEDS: metroNIDAZOLE 500 MG TAB PO SCH (22:03)
[2016-08-04 23:03] LABS: C. DIFF EPI 027 PRESUMPTIVE NEGATIVE (NEGATIVE); C. DIFF TOXIN PCR NEGATIVE (NEGATIVE)
[2016-08-05] VITALS (8 sets, daily range): BP systolic 128–196; BP diastolic 62–81; PULSE 62–70; RESP 18–22; TEMP 97.5–98.5; O2SAT 94–98
[2016-08-05] MEDS: NS + KCL 20 MEQ INJ 1,000 ML IV SCH ×2 (05:31→17:00)
[2016-08-05] MEDS: metroNIDAZOLE 500 MG TAB PO SCH ×3 (06:16→21:00)
[2016-08-05] MEDS: INSULIN ASPART SUPPLEMENTAL SCALE SQ SCH ×4 (06:18→21:06)
[2016-08-05] MEDS: SODIUM CHLORIDE 0.9% FLUSH 10 ML FLUSH IV FLUSH SCH ×2 (08:19→21:01)
[2016-08-05] MEDS: LISINOPRIL 20 MG TAB PO SCH ×2 (08:26→21:00)
[2016-08-05] MEDS: PROPRANOLOL HCL 20 MG TAB PO SCH ×2 (08:26→21:00)
[2016-08-05] MEDS: ASPIRIN EC 81 MG TABEC PO SCH (08:26)
[2016-08-05] MEDS: UMECLIDINIUM 62.5 MCG/VILANTEROL 25 MCG INHALER INH SCH (08:30)
[2016-08-05] MEDS ORDERED: NIFEdipine 60 MG SUSTAINED RELEASE TAB PO SCH (09:00)
[2016-08-05 09:28] LABS: AUTOMATED NEUTROPHIL # 15.8 TH/MM3 (1.8-7.7); BASOPHIL # 0.1 TH/MM3 (0-0.2); BASOPHIL % 0.3 % (0.0-2.0); EOSINOPHIL # 0.1 TH/MM3 (0-0.4); EOSINOPHIL % 0.3 % (0.0-4.0); HEMATOCRIT 33.5 % (35.0-46.0); HEMO FLAGS DIFF FINAL; LYMPH % 8.1 % (9.0-44.0); LYMPHOCYTE # 1.6 TH/MM3 (1.0-4.8); MEAN CELL VOLUME 83.9 FL (80.0-100.0); MEAN CORPUSCULAR HEMOGLOBIN 28.5 PG (27.0-34.0); MEAN CORPUSCULAR HGB CONC 33.9 % (32.0-36.0); MONO % 9.1 % (0.0-8.0); NEUT % 82.2 % (16.0-70.0); PLATELET COUNT 203 TH/MM3 (150-450); RED BLOOD COUNT 3.99 MIL/MM3 (4.00-5.30); RED CELL DISTRIBUTION WIDTH 14.7 % (11.6-17.2); WHITE BLOOD COUNT 19.3 TH/MM3 (4.0-11.0)
[2016-08-05 10:04] LABS: BICARBONATE 21.2 MEQ/L (21.0-32.0); POTASSIUM 3.5 MEQ/L (3.5-5.1)
[2016-08-05] MEDS: CALCIUM CARBONATE 500 MG CHEWABLE TAB CHEW PRN ×3 (12:30→21:01)
[2016-08-05] MEDS: PANTOPRAZOLE SODIUM 40 MG VIAL IV PUSH SCH (17:01)
[2016-08-05] MEDS: cloNIDine HCL 0.2 MG TAB PO PRN (17:02)
--- NOTE | 2016-08-05 17:03 | HHI.PR ---
Subjective Remarks less diarrhea today denies abdominal pain no n/v Objective Vitals Vital Signs Date Time Temp Pulse Resp B/P Pulse Ox O2 Delivery O2 Flow Rate FiO2 08/05/16 12:00 97.7 62 18 167/74 95 08/05/16 08:07 64 08/05/16 08:00 97.6 62 18 187/80 95 08/05/16 07:15 Room Air 08/05/16 04:00 97.7 70 18 184/76 96 08/05/16 04:00 97.6 70 20 182/76 96 08/05/16 00:00 97.8 70 18 128/62 94 08/04/16 22:10 Room Air 08/04/16 21:39 84 08/04/16 21:00 97.4 87 18 166/72 94 08/04/16 20:33 83 22 150/64 93 Room Air 08/04/16 19:57 79 22 181/75 95 Room Air 08/04/16 18:51 76 20 207/98 96 Room Air 08/04/16 08/04/16 08/05/16 15:00 23:00 07:00 Intake Total 220 ml Output Total 300 ml Balance -80 ml Intake Oral 220 ml Output Urine Total 300 ml # Bowel Movements 2 Result Diagram: 08/05/16 0654 08/05/16 0654 Imaging Last Impressions Chest X-Ray 08/04/16 1736 Signed Impressions: Service Date/Time: Thursday, August 04, 2016 18:19 - CONCLUSION: Mild cardiomegaly. Clear lungs. Otoniel Falcon Jr., MD Objective Remarks GENERAL: This is a well-nourished, well-developed patient, in no apparent distress. CARDIOVASCULAR: Regular rate and rhythm without murmurs, gallops, or rubs. RESPIRATORY: Clear to auscultation. Breath sounds equal bilaterally. No wheezes , rales, or rhonchi. GASTROINTESTINAL: Abdomen soft, non-tender, nondistended. Normal active bowel sounds MUSCULOSKELETAL: Extremities without clubbing, cyanosis, or edema. NEURO: Alert & Oriented x4 to person, place, time, situation. Moves all ext x4 A/P Problem List: (1) COPD (chronic obstructive pulmonary disease) Status: Chronic (2) Diarrhea Status: Acute (3) HTN (hypertension) Status: Acute (4) DM (diabetes mellitus) Status: Chronic (5) Left-sided carotid artery disease Status: Acute Problem Qualifiers (1) COPD (chronic obstructive pulmonary disease): (2) Diarrhea: Qualified Code: A09 - Diarrhea of presumed infectious origin (3) HTN (hypertension): Qualified Code: I10 - Essential hypertension (4) DM (diabetes mellitus): Qualified Code: E11.8 - Type 2 diabetes mellitus with complication, without long-term current use of insulin Neftaly Khan DO Aug 05, 2016 17:03
[2016-08-05] MEDS: NIFEdipine 60 MG SUSTAINED RELEASE TAB PO SCH (21:00)
--- NOTE | 2016-08-05 22:26 | HHI.PR ---
Subjective Remarks Pt denies abdominal pain. Pt is tolerating PO intake. Less diarrhea today. Objective Vitals Vital Signs Date Time Temp Pulse Resp B/P Pulse Ox O2 Delivery O2 Flow Rate FiO2 08/05/16 20:00 98.5 70 22 179/76 95 08/05/16 18:15 63 146/67 08/05/16 16:00 97.5 63 18 196/81 98 08/05/16 12:00 97.7 62 18 167/74 95 08/05/16 08:07 64 08/05/16 08:00 97.6 62 18 187/80 95 08/05/16 07:15 Room Air 08/05/16 04:00 97.7 70 18 184/76 96 08/05/16 04:00 97.6 70 20 182/76 96 08/05/16 00:00 97.8 70 18 128/62 94 08/04/16 08/04/16 08/05/16 15:00 23:00 07:00 Intake Total 220 ml Output Total 300 ml Balance -80 ml Intake Oral 220 ml Output Urine Total 300 ml # Bowel Movements 2 Result Diagram: 08/05/16 0654 08/05/16 0654 Imaging Last Impressions Chest X-Ray 08/04/16 1736 Signed Impressions: Service Date/Time: Thursday, August 04, 2016 18:19 - CONCLUSION: Mild cardiomegaly. Clear lungs. Otoniel Falcon Jr., MD Objective Remarks GENERAL: This is a well-nourished, well-developed patient, in no apparent distress. CARDIOVASCULAR: Regular rate and rhythm without murmurs, gallops, or rubs. RESPIRATORY: Clear to auscultation. Breath sounds equal bilaterally. No wheezes , rales, or rhonchi. GASTROINTESTINAL: Abdomen soft, non-tender, nondistended. Normal active bowel sounds MUSCULOSKELETAL: Extremities without clubbing, cyanosis, or edema. NEURO: Alert & Oriented x4 to person, place, time, situation. Moves all ext x4 A/P Problem List: (1) Diarrhea Status: Acute Plan: - improving - h/o chronic diarrhea, but now more severe than usual - C. Dif PCR --> negative - obtain stool studies: gram stain, C&S, O&P, fecal leukocyte, occult blood - IVF - PO flagyl (2) HTN (hypertension) Status: Acute Plan: - needs improvement - lisinopril, inderal, procardia XL - start hydralazine 10mg QID - observe response (3) Left-sided carotid artery disease Status: Acute Plan: - Pt to f/u with Dr. Patricia kenyon (4) DM (diabetes mellitus) Status: Chronic Plan: - SSI (5) COPD (chronic obstructive pulmonary disease) Status: Chronic Plan: - duonebs prn Problem Qualifiers (1) Diarrhea: Qualified Code: A09 - Diarrhea of presumed infectious origin (2) HTN (hypertension): Qualified Code: I10 - Essential hypertension (3) DM (diabetes mellitus): Qualified Code: E11.8 - Type 2 diabetes mellitus with complication, without long-term current use of insulin (4) COPD (chronic obstructive pulmonary disease): Neftaly Khan DO Aug 05, 2016 22:26
[2016-08-06] VITALS: BP 147/77; PULSE 67; RESP 20; TEMP 97.6; O2SAT 94
[2016-08-06] MEDS: hydrALAZINE HCL 10 MG TAB PO SCH ×5 (00:22→23:17)
[2016-08-06 04:00] VITALS: BP 156/70; PULSE 70; RESP 20; TEMP 97.6; O2SAT 94
[2016-08-06] MEDS: metroNIDAZOLE 500 MG TAB PO SCH ×3 (05:43→20:38)
[2016-08-06] MEDS: NS + KCL 20 MEQ INJ 1,000 ML IV SCH (05:43)
[2016-08-06] MEDS: INSULIN ASPART SUPPLEMENTAL SCALE SQ SCH ×4 (05:45→20:39)
[2016-08-06 08:00] VITALS: BP 167/78; PULSE 61; RESP 18; TEMP 98.4; O2SAT 95
[2016-08-06] MEDS: ASPIRIN EC 81 MG TABEC PO SCH (09:00)
[2016-08-06] MEDS: LISINOPRIL 20 MG TAB PO SCH ×2 (09:00→20:38)
[2016-08-06] MEDS: PROPRANOLOL HCL 20 MG TAB PO SCH ×2 (09:00→20:38)
[2016-08-06] MEDS: PANTOPRAZOLE SOD 40 MG DELAYED RELEASE TAB PO SCH (09:00)
[2016-08-06] MEDS: UMECLIDINIUM 62.5 MCG/VILANTEROL 25 MCG INHALER INH SCH (09:00)
[2016-08-06] MEDS: NIFEdipine 60 MG SUSTAINED RELEASE TAB PO SCH ×2 (09:00→20:38)
[2016-08-06] MEDS: SODIUM CHLORIDE 0.9% FLUSH 10 ML FLUSH IV FLUSH SCH ×2 (09:03→20:38)
--- NOTE | 2016-08-06 10:03 | EKG ---
Date Performed: 08/04/2016 Time Performed: 19:47:17 PTAGE: 76 years EKG: Sinus rhythm NONSPECIFIC T-WAVE ABNORMALITY BORDERLINE ECG PREVIOUS TRACING : 02/29/2012 17.29 DOCTOR: Uzair Caballero Interpretating Date/Time 08/06/2016 09:50:18
[2016-08-06 12:00] VITALS: BP 162/75; PULSE 72; RESP 18; TEMP 97.4; O2SAT 92
[2016-08-06 16:00] VITALS: BP 168/73; PULSE 64; RESP 18; TEMP 98.2; O2SAT 94
--- NOTE | 2016-08-06 17:14 | HHI.PR ---
Subjective Remarks No diarrhea today. Objective Vitals Vital Signs Date Time Temp Pulse Resp B/P Pulse Ox O2 Delivery O2 Flow Rate FiO2 08/06/16 12:00 97.4 72 18 162/75 92 08/06/16 08:00 96 Room Air 08/06/16 08:00 98.4 61 18 167/78 95 08/06/16 04:00 97.6 70 20 156/70 94 08/06/16 04:00 Room Air 08/06/16 00:00 97.6 67 20 147/77 94 08/06/16 00:00 Room Air 08/05/16 20:00 98.5 70 22 179/76 95 08/05/16 20:00 Room Air 08/05/16 20:00 67 08/05/16 18:15 63 146/67 08/05/16 08/05/16 08/06/16 15:00 23:00 07:00 Intake Total 1039 ml 665 ml 908 ml Output Total 600 ml Balance 1039 ml 665 ml 308 ml Intake Oral 360 ml 240 ml IV Total 679 ml 665 ml 668 ml Output Urine Total 600 ml # Voids 4 # Bowel Movements 4 Result Diagram: 08/05/16 0654 08/05/16 0654 Imaging Last Impressions Chest X-Ray 08/04/16 1736 Signed Impressions: Service Date/Time: Thursday, August 04, 2016 18:19 - CONCLUSION: Mild cardiomegaly. Clear lungs. Otoniel Falcon Jr., MD Objective Remarks GENERAL: This is a well-nourished, well-developed patient, in no apparent distress. CARDIOVASCULAR: Regular rate and rhythm without murmurs, gallops, or rubs. RESPIRATORY: Clear to auscultation. Breath sounds equal bilaterally. No wheezes , rales, or rhonchi. GASTROINTESTINAL: Abdomen soft, non-tender, nondistended. Normal active bowel sounds MUSCULOSKELETAL: Extremities without clubbing, cyanosis, or edema. NEURO: Alert & Oriented x4 to person, place, time, situation. Moves all ext x4 A/P Problem List: (1) Diarrhea Status: Acute Plan: - improved - h/o chronic diarrhea, but now more severe than usual - C. Dif PCR --> negative - obtain stool studies: O&P --> pending - stool C&S --> NO enteric pathogens - fecal leukocytes --> minimal - PO flagyl (2) HTN (hypertension) Status: Acute Plan: - needs improvement - lisinopril, inderal, procardia XL - increase hydralazine to 25mg TID - obtain CT abd/pelvis, r/o Renal artery stenosis - observe response - anticipate d/c to home in 1-2 days (3) Left-sided carotid artery disease Status: Acute Plan: - Pt to f/u with Dr. Patricia kenyon (4) DM (diabetes mellitus) Status: Chronic Plan: - SSI (5) COPD (chronic obstructive pulmonary disease) Status: Chronic Plan: - duonebs prn Problem Qualifiers (1) Diarrhea: Qualified Code: A09 - Diarrhea of presumed infectious origin (2) HTN (hypertension): Qualified Code: I10 - Essential hypertension (3) DM (diabetes mellitus): Qualified Code: E11.8 - Type 2 diabetes mellitus with complication, without long-term current use of insulin (4) COPD (chronic obstructive pulmonary disease): Neftaly Khan DO Aug 06, 2016 17:14
[2016-08-06] MEDS ORDERED: DIATRIZOATE MEGLUM/DIATRIZOATE SOD 9 ML CUP PO ONE (17:30)
[2016-08-06 20:00] VITALS: BP 165/78; PULSE 77; PULSE 80; RESP 16; TEMP 97.7; O2SAT 92
[2016-08-07] VITALS (10 sets, daily range): BP systolic 121–190; BP diastolic 62–81; PULSE 65–79; RESP 16–20; TEMP 97.9–98.5; O2SAT 91–94
[2016-08-07] MEDS: metroNIDAZOLE 500 MG TAB PO SCH ×3 (05:22→22:05)
[2016-08-07] MEDS: INSULIN ASPART SUPPLEMENTAL SCALE SQ SCH ×4 (05:22→21:00)
[2016-08-07 07:59] LABS: AUTOMATED NEUTROPHIL # 10.5 TH/MM3 (1.8-7.7); BASOPHIL % 0.3 % (0.0-2.0); EOSINOPHIL # 0.1 TH/MM3 (0-0.4); EOSINOPHIL % 0.4 % (0.0-4.0); HEMATOCRIT 37.3 % (35.0-46.0); HEMO FLAGS DIFF FINAL; LYMPH % 15.5 % (9.0-44.0); LYMPHOCYTE # 2.2 TH/MM3 (1.0-4.8); MEAN CELL VOLUME 83.5 FL (80.0-100.0); MEAN CORPUSCULAR HEMOGLOBIN 28.1 PG (27.0-34.0); MEAN CORPUSCULAR HGB CONC 33.7 % (32.0-36.0); MONO % 8.9 % (0.0-8.0); NEUT % 74.9 % (16.0-70.0); PLATELET COUNT 265 TH/MM3 (150-450); RED BLOOD COUNT 4.47 MIL/MM3 (4.00-5.30); RED CELL DISTRIBUTION WIDTH 14.6 % (11.6-17.2); WHITE BLOOD COUNT 14.1 TH/MM3 (4.0-11.0)
[2016-08-07] MEDS ORDERED: hydrALAZINE HCL 25 MG TAB PO SCH (08:00)
[2016-08-07 08:24] LABS: BICARBONATE 25.9 MEQ/L (21.0-32.0); POTASSIUM 3.6 MEQ/L (3.5-5.1)
[2016-08-07] MEDS: SODIUM CHLORIDE 0.9% FLUSH 10 ML FLUSH IV FLUSH SCH ×2 (09:00→22:06)
[2016-08-07] MEDS: UMECLIDINIUM 62.5 MCG/VILANTEROL 25 MCG INHALER INH SCH (09:00)
[2016-08-07] MEDS: ASPIRIN EC 81 MG TABEC PO SCH (09:01)
[2016-08-07] MEDS: NIFEdipine 60 MG SUSTAINED RELEASE TAB PO SCH ×2 (09:01→22:05)
[2016-08-07] MEDS: PANTOPRAZOLE SOD 40 MG DELAYED RELEASE TAB PO SCH (09:01)
[2016-08-07] MEDS: LISINOPRIL 20 MG TAB PO SCH ×2 (09:01→22:06)
[2016-08-07] MEDS: PROPRANOLOL HCL 20 MG TAB PO SCH ×2 (09:01→22:05)
--- NOTE | 2016-08-07 09:57 | HHI.PR ---
Subjective Remarks felt nauseated after taking meds says hydralazine causes flushing and for her to feel bad..wants to stop. diarrhea after contrast. Objective Vitals heent neg heart reg lung cta abd s/nt ext no edema Vital Signs Date Time Temp Pulse Resp B/P Pulse Ox O2 Delivery O2 Flow Rate FiO2 08/07/16 04:00 97.9 74 18 121/64 94 08/07/16 04:00 Room Air 08/07/16 00:00 Room Air 08/07/16 00:00 98.4 75 16 135/62 93 08/06/16 20:00 77 08/06/16 20:00 97.7 80 16 165/78 92 08/06/16 19:00 Room Air 08/06/16 16:00 98.2 64 18 168/73 94 08/06/16 12:00 97.4 72 18 162/75 92 08/06/16 08/06/16 08/07/16 15:00 23:00 07:00 Intake Total 720 ml 480 ml 240 ml Output Total 1000 ml Balance -280 ml 480 ml 240 ml Intake Oral 720 ml 480 ml 240 ml Output Urine Total 1000 ml # Voids 2 2 # Bowel Movements 0 0 Result Diagram: 08/07/16 0740 08/07/16 0740 Imaging Last Impressions Chest X-Ray 08/04/16 1736 Signed Impressions: Service Date/Time: Thursday, August 04, 2016 18:19 - CONCLUSION: Mild cardiomegaly. Clear lungs. Otoniel Falcon Jr., MD A/P Problem List: (1) Diarrhea Status: Acute Plan: -Pt presented with severe diarrhea and on augmentin - improved - h/o chronic diarrhea, but now more severe than usual - C. Dif PCR --> negative - stool studies: O&P --> pending - stool C&S --> NO enteric pathogens - fecal leukocytes --> minimal - has been on PO flagyl with improvement of sx's and wbc (2) HTN (hypertension) Status: Acute Plan: - lisinopril, inderal, procardia XL - hydralazine causing flush sx's per pt ..will hold and monitor bp...if still high then consider stopping inderal and replacing with better bp controller. (3) Left-sided carotid artery disease Status: Acute Plan: - Pt to f/u with Dr. Gomez outpt (4) DM (diabetes mellitus) Status: Chronic Plan: - SSI (5) COPD (chronic obstructive pulmonary disease) Status: Chronic Plan: - duonebs prn Problem Qualifiers (1) Diarrhea: Qualified Code: A09 - Diarrhea of presumed infectious origin (2) HTN (hypertension): Qualified Code: I10 - Essential hypertension (3) DM (diabetes mellitus): Qualified Code: E11.8 - Type 2 diabetes mellitus with complication, without long-term current use of insulin (4) COPD (chronic obstructive pulmonary disease): Marlo Lyons MD Aug 07, 2016 09:57
[2016-08-07] MEDS ORDERED: POTASSIUM CHLORIDE 20 MEQ CONTROLLED RELEASE TAB PO ONE (11:00)
[2016-08-07] MEDS: CALCIUM CARBONATE 500 MG CHEWABLE TAB CHEW PRN (11:43)
[2016-08-07] MEDS ORDERED: SIMETHICONE 125 MG CHEWABLE TAB PO ONE (14:15)
[2016-08-07] MEDS ORDERED: LORazepam 2 MG/ML VIAL IV PUSH ONE (15:00)
[2016-08-07] MEDS ORDERED: IOHEXOL 350 MG/ML 10 ML VIAL (for RAD DIAG) IV ONE (19:44)
[2016-08-07] MEDS: SIMETHICONE 125 MG CHEWABLE TAB PO SCH (22:07)
[2016-08-08] VITALS (7 sets, daily range): BP systolic 149–190; BP diastolic 64–82; PULSE 72–78; RESP 16–18; TEMP 97.5–98.6; O2SAT 92–93
[2016-08-08] MEDS: INSULIN ASPART SUPPLEMENTAL SCALE SQ SCH ×4 (05:17→20:57)
[2016-08-08] MEDS: SIMETHICONE 125 MG CHEWABLE TAB PO SCH ×3 (05:17→20:56)
[2016-08-08] MEDS: metroNIDAZOLE 500 MG TAB PO SCH ×3 (05:17→20:56)
[2016-08-08 06:05] LABS: AUTOMATED NEUTROPHIL # 15.3 TH/MM3 (1.8-7.7); BASOPHIL # 0.1 TH/MM3 (0-0.2); BASOPHIL % 0.5 % (0.0-2.0); EOSINOPHIL % 0.2 % (0.0-4.0); HEMATOCRIT 40.3 % (35.0-46.0); LYMPHOCYTE # 2.1 TH/MM3 (1.0-4.8); MEAN CORPUSCULAR HEMOGLOBIN 27.8 PG (27.0-34.0); MEAN CORPUSCULAR HGB CONC 33.1 % (32.0-36.0); MONO % 9.3 % (0.0-8.0); PLATELET COUNT 290 TH/MM3 (150-450); RED BLOOD COUNT 4.79 MIL/MM3 (4.00-5.30); RED CELL DISTRIBUTION WIDTH 14.7 % (11.6-17.2); WHITE BLOOD COUNT 19.4 TH/MM3 (4.0-11.0)
[2016-08-08 06:08] LABS: HEMO FLAGS AUTO DIFF
[2016-08-08] MEDS: cloNIDine HCL 0.2 MG TAB PO PRN (06:35)
[2016-08-08 07:36] LABS: SCAN/DIFF AUTO DIFF CONFIRMED
[2016-08-08] MEDS: PANTOPRAZOLE SOD 40 MG DELAYED RELEASE TAB PO SCH (08:22)
[2016-08-08] MEDS: UMECLIDINIUM 62.5 MCG/VILANTEROL 25 MCG INHALER INH SCH (08:22)
[2016-08-08] MEDS: NIFEdipine 60 MG SUSTAINED RELEASE TAB PO SCH ×2 (08:22→20:57)
[2016-08-08] MEDS: PROPRANOLOL HCL 20 MG TAB PO SCH ×2 (08:23→20:56)
[2016-08-08] MEDS: ASPIRIN EC 81 MG TABEC PO SCH (08:23)
[2016-08-08] MEDS: SODIUM CHLORIDE 0.9% FLUSH 10 ML FLUSH IV FLUSH SCH ×2 (08:23→20:57)
[2016-08-08] MEDS: LISINOPRIL 20 MG TAB PO SCH ×2 (08:23→20:56)
--- NOTE | 2016-08-08 08:45 | RADRPT ---
EXAM DATE/TIME: 08/07/2016 19:05 [facility] COMPARISON: No previous studies available for comparison. INDICATIONS : Evaluate for renal artery stenosis. IV CONTRAST: 75 cc Omnipaque 350 (iohexol) IV ORAL CONTRAST: No oral contrast ingested. RADIATION DOSE: 12.99 CTDIvol (mGy) MEDICAL HISTORY : Cardiovascular disease. Hypertension. hiatal hernia SURGICAL HISTORY : Hysterectomy. ENCOUNTER: Initial ACUITY: 1 day PAIN SCALE: 5/10 LOCATION: Bilateral TECHNIQUE: Volumetric scanning was performed using a multi-row detector CT scanner. The data was post processed with a variety of visualization algorithms including full volume maximum intensity projection, multi -planar sliding thin slab reformation, curved planar reformation, and surface rendering techniques. Using automated exposure control and adjustment of the mA and/or kV according to patient size, radiat ion dose was kept as low as reasonably achievable to obtain optimal diagnostic quality images. FINDINGS: ABDOMINAL AORTA: Moderate calcified atherosclerotic plaque throughout the bowel aorta with resultant distal aortic biju nosis. The distal aorta measures 8 mm at the aortic bifurcation. 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 There is standard celiac anatomy a nd the splenic artery is heavily calcified. 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 There is mild stenosis of the JAYLEEN origin which is otherwise patent. There are single bilateral renal arteries. The right renal artery origin is heavily calcified wh ich exaggerates degree of stenosis. However, There is likely severe stenosis of the right renal arter y origin. There is mixed predominantly calcified plaque at the origin of the left renal artery with r esultant at least moderate stenosis. RIGHT PELVIS: Right common iliac artery is heavily calcified with resultant mild to moderate stenosis of the mid ri ght common iliac artery. Mild to moderate stenosis of the right common iliac artery origin. External iliac artery is patent. Visualized portions of the femoral arteries are patent. LEFT PELVIS: There is severe stenosis of the left common iliac artery origin secondary to bulky calcified plaque e xtending from the distal aorta. There is also apparent dissection in the mid to distal left common il iac artery. 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 Exte rnal iliac artery is patent. Visualized femoral arteries are patent. CT ABDOMEN GENERAL FINDINGS: Minimal atelectasis at the lung bases. Liver, spleen, adrenal glands, and pancreas are grossly u nremarkable. Gallbladder is distended. Kidneys demonstrate symmetrical enhancement without evidence f or hydronephrosis, radiopaque renal calculi, or focal mass. Very minimal sigmoid diverticulosis. Calin l otherwise appears unremarkable without significant bowel thickening or evidence for obstruction. CT PELVIS GENERAL FINDINGS: Uterus is surgically absent. Bladder is mildly distended but otherwise unremarkable. Subcentimet er bilateral inguinal nodes are likely reactive no focal lytic or blastic bony lesions. Multilevel de generative spondylosis of the lower lumbar spine most prominently at L4-5 with severe disc space loss and posterior osteophyte complex. CONCLUSION: 1. Severe extensive atherosclerotic disease involving the abdominal aorta and visceral branch vessels . 2. Severe right and moderate to severe left renal artery stenosis exaggerated by bulky calcified plaq ue which can overestimate stenosis on CT scan. 3. 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 Significant involvement of two mesenteric branch vessels predisposes this patient to mesenteric ischemia although the bowel appear unremarkable on current exam. Clinical correlation is recommended. 4. 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 Patient would likely benefit from left iliac intervention if she has cla udication symptoms. Kash Lund MD on August 08, 2016 at 7:42 Board Certified Radiologist. This report was verified electronically.
--- NOTE | 2016-08-08 09:07 | HHI.PR ---
Subjective Remarks still with alot of nausea and epigastric pain after meals not eating much. Objective Vitals heart reg lung cta abd mild epigastric tenderness ext no edema Vital Signs Date Time Temp Pulse Resp B/P Pulse Ox O2 Delivery O2 Flow Rate FiO2 08/08/16 08:00 97.8 78 18 149/68 92 08/08/16 04:37 98.4 76 16 183/77 93 166/74 08/07/16 23:10 98.5 77 16 152/67 93 08/07/16 20:22 97.9 79 16 150/68 94 08/07/16 20:00 Room Air 08/07/16 20:00 76 08/07/16 16:00 Room Air 08/07/16 16:00 98.4 69 20 121/71 93 08/07/16 15:10 149/68 08/07/16 12:00 Room Air 08/07/16 12:00 98.1 70 20 190/81 91 08/07/16 09:00 65 08/07/16 08/07/16 08/08/16 15:00 23:00 07:00 Intake Total 240 ml 240 ml 120 ml Balance 240 ml 240 ml 120 ml Intake Oral 240 ml 240 ml 120 ml IV Total 0 ml # Voids 3 5 2 # Bowel Movements 3 3 1 Result Diagram: 08/08/16 0525 08/07/16 0740 Imaging Last Impressions Chest X-Ray 08/04/16 1736 Signed Impressions: Service Date/Time: Thursday, August 04, 2016 18:19 - CONCLUSION: Mild cardiomegaly. Clear lungs. Otoniel Falcon Jr., MD A/P Problem List: (1) Abdominal pain Status: Acute Plan: Pt has had ongoing epigastric pain about 30min after meals for months. She is eating very little. very nauseated. Had egd and outpt CT recently and noted to have HH. Presented here with diarrhea after abx use and leukocytosis and started on flagyl. but c. diff negative. CTA abd/pelvis performed 08/07 to eval for JIM given htn and also for mesenteric dz of celiac/sma/alena to exclude mesenteric ischemia. ..result shows mod-severe stenosis of bilateral renal arteries. 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 also left iliac dz/dissection noted. I will call her , then get GI input and probably IR consultation. Addendum: spoke to pt and . explained possible mesenteric ischemia from celiac and sma dz. Also discussed severe JIM and htn. We agreed to consult both GI and Nephrology for input prior to consulting IR for possible angioplasty. Left iliac dz/dissection noted but pt has no sx of claudication in the leg. I will have her f/u with her vascular surgeon dr Gomez who follows her carotids. (2) Diarrhea Status: Acute Plan: -Pt presented with severe diarrhea and on augmentin - improved - h/o chronic diarrhea and IBS, but now more severe than usual - C. Dif PCR --> negative - stool studies: O&P --> pending - stool C&S --> NO enteric pathogens - fecal leukocytes --> minimal - has been on PO flagyl with improvement of sx's and wbc (3) HTN (hypertension) Status: Acute Plan: - lisinopril, inderal, procardia XL - hydralazine causing flush sx's per pt ..will hold and monitor bp...if still high then consider stopping inderal and replacing with better bp controller. see above (4) Left-sided carotid artery disease Status: Acute Plan: - Pt to f/u with Dr. Gomez outpt (5) DM (diabetes mellitus) Status: Chronic Plan: - SSI (6) COPD (chronic obstructive pulmonary disease) Status: Chronic Plan: - duonebs prn Problem Qualifiers (1) Diarrhea: Qualified Code: A09 - Diarrhea of presumed infectious origin (2) HTN (hypertension): Qualified Code: I10 - Essential hypertension (3) DM (diabetes mellitus): Qualified Code: E11.8 - Type 2 diabetes mellitus with complication, without long-term current use of insulin (4) COPD (chronic obstructive pulmonary disease): Marlo Lyons MD Aug 08, 2016 09:06
[2016-08-08] MEDS: NS + KCL 20 MEQ INJ 1,000 ML IV SCH ×2 (10:57→23:40)
[2016-08-08] MEDS: CALCIUM CARBONATE 500 MG CHEWABLE TAB CHEW PRN (11:05)
--- NOTE | 2016-08-08 13:53 | PD.CONS ---
HPI Service Nephrology Consult Requested By Dr. Lyons Reason for Consult Hypertension Primary Care Physician Marques العلي MD History of Present Illness 76 year old white female former smoker who is her with abdominal pain, diarrhea and hypertension, he Blood pressure was well controlled on medications, he renal functions are normal, she is upset as she has to stay in hospital longer then expected, she had a CTA of Aorta and showed sever blockage Right renal artery, moderate to sever blockage left renal artery, severe blockage to Iliac vessel, celiac artery. She never have problems with her kidneys and creatinine is 0.5 Review of Systems Constitutional: COMPLAINS OF: Fatigue Past Family Social History Allergies: Coded Allergies: Codeine (Verified Adverse Reaction, Unknown, NAUSEA, 07/29/16) Past Medical History hypertension Obesity diabetes hyperlipidemia CVA 10 years ago Past Surgical History Left cataract Hysterectomy Reported Medications Reported Meds & Active Scripts Active Nifedipine ER 24 HR (Nifedipine) 60 Mg Tab 60 Mg PO DAILY Reported Anoro Ellipta Inh (Umeclidinium/Vilanterol) 62.5-25 Mcg/Act Aero 1 Puff INH DAILY Propranolol (Propranolol HCl) 20 Mg Tab 20 Mg PO Q12HR Ventolin Hfa 18 GM Inh (Albuterol Sulfate) 90 Mcg/Act Aer 2 Puff INH Q4-6H PRN Probiotic (Bacillus Coagulans) 1 Each Tab.chew Lisinopril 20 Mg Tab 20 Mg PO BID Lovastatin 20 Mg Tab 20 Mg PO BID Aspirin 81 (Aspirin) 81 Mg Tabdr 81 Mg PO DAILY Diphenoxylate-Atropine 2.5-0.025 Mg Tab 1 Tab PO Q8HR PRN Metformin (Metformin HCl) 500 Mg Tab 500 Mg PO BIDPC With meals Active Ordered Medications Current Medications Medications (Trade) Dose Ordered Sig/Reece Route Start Time Stop Time Status Last Admin (NS Flush) 2 ml UNSCH PRN IV FLUSH 08/04/16 17:45 (NS Flush) 2 ml BID IV FLUSH 08/04/16 21:00 08/08/16 08:23 (Tylenol) 650 mg Q4H PRN PO 08/04/16 17:45 (Zofran Inj) 4 mg Q6H PRN IVP 08/04/16 17:45 (Restoril) 15 mg HS PRN PO 08/04/16 17:45 (Narcan Inj) 0.4 mg UNSCH PRN IV 08/04/16 17:45 (Flagyl) 500 mg Q8HR PO 08/04/16 22:00 08/08/16 05:17 (Ecotrin Ec) 81 mg DAILY PO 08/05/16 09:00 08/08/16 08:23 (Prinivil) 20 mg BID PO 08/04/16 21:00 08/08/16 08:23 (Inderal) 20 mg Q12HR PO 08/04/16 21:00 08/08/16 08:23 (D50w (Vial) Inj) 25 ml UNSCH PRN IV PUSH 08/04/16 18:00 (Glucagon Inj) 1 mg UNSCH PRN OTHER 08/04/16 18:00 (Tums Chew) 500 mg Q2H PRN CHEW 08/04/16 18:00 08/08/16 11:05 (Catapres) 0.2 mg Q6H PRN PO 08/04/16 20:00 08/08/16 06:35 (Vasotec Inj) 1.25 mg Q6H PRN IV PUSH 08/04/16 20:30 (Procardia Xl) 60 mg BID PO 08/05/16 21:00 08/08/16 08:22 (Protonix) 40 mg DAILY PO 08/06/16 09:00 08/08/16 08:22 Simethicone 125 mg 125 mg Q8HR PO 08/07/16 22:00 08/08/16 05:17 (NS + KCl 20 Meq Inj) 1,000 ml @ 84 mls/hr [id number] IV 08/08/16 10:00 08/08/16 10:57 Family History noncontributory Social History smoking history 30 pack years stopped 20 years ago, ETOH none Physical Exam Vital Signs Vital Signs Date Time Temp Pulse Resp B/P Pulse Ox O2 Delivery O2 Flow Rate FiO2 08/08/16 08:00 97.8 78 18 149/68 92 08/08/16 04:37 98.4 76 16 183/77 93 166/74 08/07/16 23:10 98.5 77 16 152/67 93 08/07/16 20:22 97.9 79 16 150/68 94 08/07/16 20:00 Room Air 08/07/16 20:00 76 08/07/16 16:00 Room Air 08/07/16 16:00 98.4 69 20 121/71 93 08/07/16 15:10 149/68 Physical Exam GENERAL: Well-nourished, well-developed obese patient. SKIN: Warm and dry. HEAD: Normocephalic. EYES: No scleral icterus. No injection or drainage. NECK: Supple, trachea midline. No JVD or lymphadenopathy. CARDIOVASCULAR: Regular rate and rhythm without murmurs, gallops, or rubs. RESPIRATORY: Breath sounds equal bilaterally. No accessory muscle use. GASTROINTESTINAL: Abdomen soft, non-tender, nondistended. EXTREMITIES: No cyanosis, or edema. NEUROLOGICAL: Awake, alert, and oriented x 3. Non-focal. Laboratory Laboratory Tests Test 08/08/16 05:25 White Blood Count 19.4 Red Blood Count 4.79 Hemoglobin 13.3 Hematocrit 40.3 Mean Corpuscular Volume 84.0 Mean Corpuscular Hemoglobin 27.8 Mean Corpuscular Hemoglobin 33.1 Concent Red Cell Distribution Width 14.7 Platelet Count 290 Mean Platelet Volume 8.3 Neutrophils (%) (Auto) 79.0 Lymphocytes (%) (Auto) 11.0 Monocytes (%) (Auto) 9.3 Eosinophils (%) (Auto) 0.2 Basophils (%) (Auto) 0.5 Neutrophils # (Auto) 15.3 Lymphocytes # (Auto) 2.1 Monocytes # (Auto) 1.8 Eosinophils # (Auto) 0.0 Basophils # (Auto) 0.1 CBC Comment AUTO DIFF Differential Comment AUTO DIFF CONFIRMED Date/Time Procedure Status Source Growth 08/04/16 20:45 Cyclospora Exam - Final Complete Stool Stool NO CYCLOSPORA SEEN 08/04/16 20:45 Cryptosporidium Exam - Final Complete Stool Stool NEGATIVE - NO CRYPTOSPORIDIUM ANTIGEN... 08/04/16 20:45 Stool Pus (BROCK) - Final Complete Stool Stool RARE WBC 08/04/16 20:45 Giardia Antigen (BROCK) - Final Complete Stool Stool NEGATIVE - NO GIARDIA ANTIGEN DETECTE... 08/04/16 20:45 Stool Occult Blood (BROCK) - Final Complete Stool Stool HEMOCCULT NEGATIVE 08/04/16 20:45 - Final Complete Stool Stool NO ENTERIC PATHOGENS DETECTED BY PCR... 08/04/16 19:10 Aerobic Blood Culture - Preliminary Resulted Blood Peripheral NO GROWTH IN 4 DAYS 08/04/16 19:10 Anaerobic Blood Culture - Preliminary Resulted Blood Peripheral NO GROWTH IN 4 DAYS Result Diagram: 08/08/16 0525 08/07/16 0740 Imaging Last Impressions Abdomen/Pelvis CT 08/07/16 1403 Signed Impressions: Service Date/Time: Sunday, August 07, 2016 19:05 - CONCLUSION: 1. Severe extensive atherosclerotic disease involving the abdominal aorta and visceral branch vessels. 2. Severe right and moderate to severe left renal artery stenosis exaggerated by bulky calcified plaque which can overestimate stenosis on CT scan. 3. 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 Significant involvement of two mesenteric branch vessels predisposes this patient to mesenteric ischemia although the bowel appear unremarkable on current exam. Clinical correlation is recommended. 4. 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 Patient would likely benefit from left iliac intervention if she has claudication symptoms. Kash Lund MD Chest X-Ray 08/04/16 1736 Signed Impressions: Service Date/Time: Thursday, August 04, 2016 18:19 - CONCLUSION: Mild cardiomegaly. Clear lungs. Otoniel Falcon Jr., MD Assessment and Plan Problem List: (1) HTN (hypertension) Plan: Patient reports good control of BP until latest hospitalization, there are factors aggravating her BP which could be contributing she is on ACEI as out patient and has no history of renal failure it is highly unlikely she has significant stenosis bilaterally in her renal arteries, most commonly patient presents with ARF/Hyperkalemia but I do not find any evidence of this in her clinical situation she denies claudication and although she has extensive plaque she is asymptomatic I will obtain kidney US Recommend close observation given her clinical presentation CTA report mention due to plaque it could be an over estimation of her blockage , which may be likely scenario. (2) DM (diabetes mellitus) Plan: continue to monitor BG (3) Abdominal pain Plan: could be ischemic Problem Qualifiers (1) HTN (hypertension): Qualified Code: I10 - Essential hypertension (2) DM (diabetes mellitus): Qualified Code: E11.8 - Type 2 diabetes mellitus with complication, without long-term current use of insulin Geovanny Conn MD Aug 08, 2016 13:53 Geovanny Conn MD Aug 08, 2016 13:53
--- NOTE | 2016-08-08 14:59 | PD.CONS ---
HPI History of Present Illness This is a 76 year old lady who presented with epigastric pain, nausea, diarrhea. She was found to have stenosis left common iliac, left renal arteries , and occluded superior mesenteric artery. 6 months ago she began experiencing epigastric pain after eating. The pain is burning and sharp. Tums or gaviscon help somewaht. Occurs not with every meal. CAn last up to an hour. She has had diarrhea on and off for 2 years. occasional Bright red blood blood in stool. She last had EGD/colonoscopy [address] Tubbs but cannot recall findings other than diverticulosis and EGD with no abnormal findings. She says recently she has noticed increase in volume of diarrhea. (Christy Torrez) PFSH Past Medical History HTN, COPD, asthma Past Surgical History hysterectomy (Christy Torrez) Coded Allergies: Codeine (Verified Adverse Reaction, Unknown, NAUSEA, 07/29/16) Family History pancreatic ca - father who 49 bladder ca Social History occasional ETOH no tobacco or illicit drugs (Christy Torrez) Review of Systems Constitutional: DENIES: Weight loss Eyes: DENIES: Blurred vision Ears, nose, mouth, throat: DENIES: Vertigo Respiratory: DENIES: Cough Gastrointestinal: COMPLAINS OF: Abdominal pain, Bloody stools, Diarrhea, Nausea , Vomiting, DENIES: Black stools, Hematemesis Genitourinary: DENIES: Hematuria Musculoskeletal: DENIES: Muscle aches Neurologic: DENIES: Abnormal gait Psychiatric: DENIES: Confusion (Christy Torrez) GI Exam Vitals I&O Vital Signs Date Time Temp Pulse Resp B/P Pulse Ox O2 Delivery O2 Flow Rate FiO2 08/08/16 08:20 78 08/08/16 08:00 97.8 78 18 149/68 92 08/08/16 04:37 98.4 76 16 183/77 93 166/74 08/07/16 23:10 98.5 77 16 152/67 93 08/07/16 20:22 97.9 79 16 150/68 94 08/07/16 20:00 Room Air 08/07/16 20:00 76 08/07/16 16:00 Room Air 08/07/16 16:00 98.4 69 20 121/71 93 08/07/16 15:10 149/68 I/O 08/07/16 08/07/16 08/07/16 08/08/16 08/08/16 08/08/16 07:00 15:00 23:00 07:00 15:00 23:00 Intake Total 240 ml 240 ml 240 ml 120 ml 236 ml Output Total 3 ml Balance 240 ml 240 ml 240 ml 120 ml 233 ml Intake Oral 240 ml 240 ml 240 ml 120 ml IV Total 0 ml 236 ml Stool Total 3 ml # Voids 2 3 5 2 4 # Bowel Movements 0 3 3 1 Imaging Last Impressions Abdomen/Pelvis CT 08/07/16 1403 Signed Impressions: Service Date/Time: Sunday, August 07, 2016 19:05 - CONCLUSION: 1. Severe extensive atherosclerotic disease involving the abdominal aorta and visceral branch vessels. 2. Severe right and moderate to severe left renal artery stenosis exaggerated by bulky calcified plaque which can overestimate stenosis on CT scan. 3. 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 Significant involvement of two mesenteric branch vessels predisposes this patient to mesenteric ischemia although the bowel appear unremarkable on current exam. Clinical correlation is recommended. 4. 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 Patient would likely benefit from left iliac intervention if she has claudication symptoms. Kash Lund MD Chest X-Ray 08/04/16 1736 Signed Impressions: Service Date/Time: Thursday, August 04, 2016 18:19 - CONCLUSION: Mild cardiomegaly. Clear lungs. Otoniel Falcon Jr., MD Laboratory Test 08/08/16 05:25 White Blood Count 19.4 TH/MM3 Red Blood Count 4.79 MIL/MM3 Hemoglobin 13.3 GM/DL Hematocrit 40.3 % Mean Corpuscular Volume 84.0 FL Mean Corpuscular Hemoglobin 27.8 PG Mean Corpuscular Hemoglobin 33.1 % Concent Red Cell Distribution Width 14.7 % Platelet Count 290 TH/MM3 Mean Platelet Volume 8.3 FL Neutrophils (%) (Auto) 79.0 % Lymphocytes (%) (Auto) 11.0 % Monocytes (%) (Auto) 9.3 % Eosinophils (%) (Auto) 0.2 % Basophils (%) (Auto) 0.5 % Neutrophils # (Auto) 15.3 TH/MM3 Lymphocytes # (Auto) 2.1 TH/MM3 Monocytes # (Auto) 1.8 TH/MM3 Eosinophils # (Auto) 0.0 TH/MM3 Basophils # (Auto) 0.1 TH/MM3 CBC Comment AUTO DIFF Differential Comment AUTO DIFF CONFIRMED Date/Time Procedure Status Source Growth 08/04/16 20:45 Cyclospora Exam - Final Complete Stool Stool NO CYCLOSPORA SEEN 08/04/16 20:45 Cryptosporidium Exam - Final Complete Stool Stool NEGATIVE - NO CRYPTOSPORIDIUM ANTIGEN... 08/04/16 20:45 Stool Pus (BROCK) - Final Complete Stool Stool RARE WBC 08/04/16 20:45 Giardia Antigen (BROCK) - Final Complete Stool Stool NEGATIVE - NO GIARDIA ANTIGEN DETECTE... 08/04/16 20:45 Stool Occult Blood (BROCK) - Final Complete Stool Stool HEMOCCULT NEGATIVE 08/04/16 20:45 - Final Complete Stool Stool NO ENTERIC PATHOGENS DETECTED BY PCR... 08/04/16 19:10 Aerobic Blood Culture - Preliminary Resulted Blood Peripheral NO GROWTH IN 4 DAYS 08/04/16 19:10 Anaerobic Blood Culture - Preliminary Resulted Blood Peripheral NO GROWTH IN 4 DAYS Physical Examination HEENT: EOMI; normocephalic; atraumatic; no jaundice. CHEST: CTA CARDIAC: RRR ABDOMEN: Soft, obese, diffuse and RUQ TTP; no hepatosplenomegaly; bowel sounds are present in all four quadrants. EXTREMITIES: No clubbing, cyanosis, or edema. SKIN: Normal; no rash; no jaundice. 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 (Christy Torrez [facility]) Assessment and Plan Plan ASSESSMENT - dairrhea - on and off for 2 years, recent colonoscopy normal per pt other than diverticulosis. CTA --> 1. Severe extensive atherosclerotic disease involving the abdominal aorta and visceral branch vessels. 2. Severe right and moderate to severe left renal artery stenosis exaggerated by bulky calcified plaque which can overestimate stenosis on CT scan. 3. 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 Significant involvement of two mesenteric branch vessels predisposes this patient to mesenteric ischemia although the bowel appear unremarkable on current exam. Clinical correlation is recommended. 4. 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 Patient would likely benefit from left iliac intervention if she has claudication symptoms. stool cx, c diff neg. - epigastric pain - unclear etiology, EGD 1 m ago normal per pt. CT as above. Consider GES. PLAN - consult IR - supportive care - monitor HH - further recommendations to follow This pt seen by myself and Dr Long and this note is written on his behalf ( Christy Torrez) Physician Comments Seen and examined, recent worsening of symptoms especially post prandial pain. CT shows extensive vascular disease. Recent egd/colonoscopy -ve as outpt. Will consult IR and vascular surgery.. Discussed with pt. Thank you (Duran Long MD) Christy Torrez Aug 08, 2016 14:59 Duran Long MD Aug 08, 2016 15:42
--- NOTE | 2016-08-08 15:49 | RADRPT ---
EXAM DATE/TIME: 08/08/2016 14:37 [facility] COMPARISON: CTA ABDOMEN & PELVIS W 3D RECON, August 07, 2016, 19:05. EXTERNAL COMPARISON : [facility], CT ABDOMEN W/CONTRAST, July 14, 2016[facility], CT ABDOMEN& PELVIS, [facility] 2014 INDICATIONS : Renal artery disease. MEDICAL HISTORY : Hypercholesterolemia. Hernia, hiatal. Hypertension. TIA. Tachyarrythmia. Asthma. COPD. IBS. Arthritis . CVA. Hypertensive encephalopathy. SURGICAL HISTORY : Hysterectomy. Left cataract. ENCOUNTER: Initial ACUITY: 1 day PAIN SCORE: 1/10 LOCATION: Bilateral flank MEASUREMENTS: RIGHT KIDNEY: 9.6 x 4.6 x 5.2 cm LEFT KIDNEY: 10.3 x 6.3 x 5.0 cm FINDINGS: RIGHT KIDNEY: Renal cortex is normal in thickness and echotexture. No hydronephrosis, stone, or mass. LEFT KIDNEY: Renal cortex is normal in thickness and echotexture. No hydronephrosis, stone, or mass. BLADDER: Within normal limits given the degree of distension. CONCLUSION: 1. Normal renal ultrasound examination. Symmetrical appearing kidneys without evidence for obstructiv e uropathy. Kash Lund MD on August 08, 2016 at 15:45 Board Certified Radiologist. This report was verified electronically.
[2016-08-08] MEDS: ONDANSETRON HCL 4 MG/2 ML VIAL IVP PRN (23:46)
[2016-08-09] VITALS (16 sets, daily range): BP systolic 109–249; BP diastolic 66–112; PULSE 67–78; RESP 18; TEMP 97.6–99.4; O2SAT 91–94
[2016-08-09] MEDS: INSULIN ASPART SUPPLEMENTAL SCALE SQ SCH ×4 (06:41→20:48)
[2016-08-09] MEDS: metroNIDAZOLE 500 MG TAB PO SCH ×3 (06:41→20:47)
[2016-08-09] MEDS: SIMETHICONE 125 MG CHEWABLE TAB PO SCH ×3 (06:41→20:47)
--- NOTE | 2016-08-09 08:33 | HHI.PR ---
Subjective Remarks doing ok. still with abdomen sx's Objective Vitals heart reg lung cta abd s/nt ext no edema Vital Signs Date Time Temp Pulse Resp B/P Pulse Ox O2 Delivery O2 Flow Rate FiO2 08/09/16 04:22 99.4 77 18 144/66 92 08/09/16 00:30 158/66 08/09/16 00:10 98.7 67 18 163/67 92 08/08/16 22:15 156/68 08/08/16 20:26 98.6 77 18 190/82 93 190/64 08/08/16 16:00 98.4 74 18 160/72 93 08/08/16 12:00 97.5 72 18 159/71 93 08/08/16 08/08/16 08/09/16 15:00 23:00 07:00 Intake Total 236 ml 638 ml Output Total 803 ml Balance -567 ml 638 ml Intake Oral 0 ml 30 ml IV Total 236 ml 608 ml Output Urine Total 800 ml Stool Total 3 ml # Voids 4 5 # Bowel Movements 1 4 Result Diagram: 08/08/16 0525 08/07/16 0740 Imaging Last Impressions Chest X-Ray 08/04/16 1736 Signed Impressions: Service Date/Time: Thursday, August 04, 2016 18:19 - CONCLUSION: Mild cardiomegaly. Clear lungs. Otoniel Falcon Jr., MD A/P Problem List: (1) Abdominal pain Status: Acute Plan: Pt has had ongoing epigastric pain about 30min after meals for months. She is eating very little. very nauseated. Had egd and outpt CT recently and noted to have HH. Presented here with diarrhea after abx use and leukocytosis and started on flagyl. but c. diff negative. CTA abd/pelvis performed 08/07 to eval for JIM given htn and also for mesenteric dz of celiac/sma/alena to exclude mesenteric ischemia. ..result shows mod-severe stenosis of bilateral renal arteries. 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 also left iliac dz/dissection noted. GI and IR agree with mesenteric ischemia I agree with Renal to not purse angioplasty of renal arteries pt going to IR today for procedure (2) Diarrhea Status: Acute Plan: -Pt presented with severe diarrhea and on augmentin - improved - h/o chronic diarrhea and IBS, but now more severe than usual - C. Dif PCR --> negative - stool studies: O&P --> pending - stool C&S --> NO enteric pathogens - fecal leukocytes --> minimal - has been on PO flagyl with improvement of sx's and wbc (3) HTN (hypertension) Status: Acute Plan: - lisinopril, inderal, procardia XL - hydralazine causing flush sx's per pt ..will hold and monitor bp...if still high then consider stopping inderal and replacing with better bp controller. see above (4) Left-sided carotid artery disease Status: Acute Plan: - Pt to f/u with Dr. Gomez outpt (5) DM (diabetes mellitus) Status: Chronic Plan: - SSI (6) COPD (chronic obstructive pulmonary disease) Status: Chronic Plan: - duonebs prn Problem Qualifiers (1) Diarrhea: Qualified Code: A09 - Diarrhea of presumed infectious origin (2) HTN (hypertension): Qualified Code: I10 - Essential hypertension (3) DM (diabetes mellitus): Qualified Code: E11.8 - Type 2 diabetes mellitus with complication, without long-term current use of insulin (4) COPD (chronic obstructive pulmonary disease): Marlo Lyons MD Aug 09, 2016 08:33
[2016-08-09] MEDS: SODIUM CHLORIDE 0.9% FLUSH 10 ML FLUSH IV FLUSH SCH ×2 (09:00→20:48)
[2016-08-09] MEDS: PANTOPRAZOLE SOD 40 MG DELAYED RELEASE TAB PO SCH (09:00)
[2016-08-09] MEDS: ASPIRIN EC 81 MG TABEC PO SCH (09:00)
[2016-08-09] MEDS: PROPRANOLOL HCL 20 MG TAB PO SCH ×2 (09:00→20:47)
[2016-08-09] MEDS ORDERED: MIDAZOLAM HCL 5 MG/5 ML VIAL ONE (09:48)
[2016-08-09] MEDS ORDERED: fentaNYL CITRATE 250 MCG/5 ML AMP ONE (09:49)
[2016-08-09 10:09] LABS: BICARBONATE 19.9 MEQ/L (21.0-32.0); POTASSIUM 3.6 MEQ/L (3.5-5.1)
[2016-08-09] MEDS ORDERED: NITROGLYCERIN 1000 MCG/5 ML VIAL OTHER ONE (10:09)
[2016-08-09] MEDS ORDERED: VERAPAMIL HCL 5 MG/2 ML VIAL ONE ×2 (10:22→11:14)
[2016-08-09] MEDS ORDERED: HEPARIN SODIUM - IV 10,000 UNITS/10 ML VIAL ONE (10:42)
[2016-08-09] MEDS ORDERED: NITROGLYCERIN 2% OINT 1 GM PACKET ONE (10:54)
[2016-08-09] MEDS ORDERED: PROTAMINE SULFATE 50 MG/5 ML VIAL ONE (12:19)
[2016-08-09] MEDS: ENALAPRILAT 1.25 MG/ML VIAL IV PUSH PRN (13:15)
--- NOTE | 2016-08-09 13:40 | PD.RAD ---
Post Procedure Progress Note Pre Procedure Diagnosis: (1) Abdominal pain Post Procedure Diagnosis: (1) Abdominal pain (2) Mesenteric artery insufficiency Procedure Date: Aug 09, 2016 Supervising Radiologist: Kash Lund Proceduralist/Assist: Izaiah Ashton, RT(R), Claudia Limon RT(R)() Anesthesia: Conscious Sedation Plan of Activity Patient to Unit: Nursing Unit Patient Condition: Good Additional Comments: Very challenging case. SMA is occluded. Celiac is very critically stenosed. JAYLEEN is the dominant mesenteric vessel. Able to access celiac and plasty with 3mm balloon but unable to pass stent despite mutltiple attempts (via radial approach ) despite stenting of a severe left subclavian stenosis. Will reattempt tomorrow via femoral approach. See PACS Report for procedural detail/treatment Kash Lund MD Aug 09, 2016 13:40
[2016-08-09] MEDS ORDERED: IOHEXOL 350 MG/ML 50 ML BTL (for RAD DIAG) OTHER ONE (14:16)
[2016-08-09] MEDS: NIFEdipine 60 MG SUSTAINED RELEASE TAB PO SCH ×2 (14:30→20:47)
[2016-08-09] MEDS: LISINOPRIL 20 MG TAB PO SCH ×2 (14:30→20:48)
--- NOTE | 2016-08-09 18:17 | HHI.NPPN ---
Subjective History of Present Illness 76 year old with JIM non critical ischemic bowels Review of Systems General Constitutional: Fatigue Objective Data Data 08/08/16 08/09/16 18:59 06:59 Intake Total 236 ml 638 ml Output Total 803 ml Balance -567 ml 638 ml Intake Oral 0 ml 30 ml IV Total 236 ml 608 ml Output Urine Total 800 ml Stool Total 3 ml # Voids 4 5 # Bowel Movements 1 4 Vital Signs Date Time Temp Pulse Resp B/P Pulse Ox O2 Delivery O2 Flow Rate FiO2 08/09/16 16:10 98.0 78 18 194/81 92 08/09/16 15:30 70 18 198/81 93 08/09/16 15:00 78 18 218/88 92 08/09/16 14:30 72 18 212/85 93 08/09/16 14:00 68 18 207/97 92 08/09/16 13:45 67 18 223/84 92 08/09/16 13:30 75 18 223/98 93 08/09/16 13:15 76 18 225/96 92 08/09/16 12:55 97.6 67 249/112 94 08/09/16 08:01 98.0 67 18 187/79 92 08/09/16 04:22 99.4 77 18 144/66 92 08/09/16 00:30 158/66 08/09/16 00:10 98.7 67 18 163/67 92 08/08/16 22:15 156/68 08/08/16 20:26 98.6 77 18 190/82 93 190/64 -: 08/08/16 0525 08/09/16 0743 Physical Exam General Appearance: Well Developed, Well Nourished Neck Neck Exam: Neck Supple Pulmonary Resp Exam: Clear Bilaterally, Breath Sounds Equal Cardiology CV Exam: Regular, Normal Sinus Rhythm Gastrointestinal/Abdomen GI Exam: Soft, Non-Tender, Bowel Sounds Present Integumentary Skin Exam: Clear Extremeties Extremities Exam: No Edema Neurologic Neuro Exam: Alert, Awake Assessment/Plan Problem List: (1) HTN (hypertension) Plan: JIM likely non critical no discrepancy in kidney size normal creatinine BP was labile post procedure undergoing Celiac artery stent will do 2nd attempt tomorrow as 1 st attempt was unsuccessful I can follow her as out patient (2) DM (diabetes mellitus) Plan: continue to monitor BG (3) Abdominal pain Plan: ischemic bowels Problem Qualifiers (1) HTN (hypertension): Qualified Code: I10 - Essential hypertension (2) DM (diabetes mellitus): Qualified Code: E11.8 - Type 2 diabetes mellitus with complication, without long-term current use of insulin Geovanny Conn MD Aug 09, 2016 18:17
[2016-08-09] MEDS: NS + KCL 20 MEQ INJ 1,000 ML IV SCH (20:52)
[2016-08-09] MEDS ORDERED: ACETAMINOPHEN/HYDROcodone 325 MG/5 MG TAB PO PRN (23:45)
[2016-08-10] VITALS (14 sets, daily range): BP systolic 116–192; BP diastolic 53–83; PULSE 53–96; RESP 16–28; TEMP 94.8–98.1; O2SAT 18–96
[2016-08-10] MEDS ORDERED: DICYCLOMINE HCL 10 MG CAP PO ONE
[2016-08-10] MEDS: cloNIDine HCL 0.2 MG TAB PO PRN (01:32)
[2016-08-10] MEDS: SIMETHICONE 125 MG CHEWABLE TAB PO SCH ×3 (05:05→20:02)
[2016-08-10] MEDS: metroNIDAZOLE 500 MG TAB PO SCH (05:05)
[2016-08-10] MEDS: INSULIN ASPART SUPPLEMENTAL SCALE SQ SCH ×4 (06:13→20:05)
[2016-08-10] MEDS: ONDANSETRON HCL 4 MG/2 ML VIAL IVP PRN (07:59)
[2016-08-10] MEDS: NIFEdipine 60 MG SUSTAINED RELEASE TAB PO SCH ×2 (08:02→20:02)
[2016-08-10] MEDS: ASPIRIN EC 81 MG TABEC PO SCH (08:03)
[2016-08-10] MEDS: PROPRANOLOL HCL 20 MG TAB PO SCH ×2 (08:03→20:02)
[2016-08-10] MEDS: PANTOPRAZOLE SOD 40 MG DELAYED RELEASE TAB PO SCH (08:03)
[2016-08-10] MEDS: LISINOPRIL 20 MG TAB PO SCH ×2 (08:03→20:02)
[2016-08-10] MEDS: UMECLIDINIUM 62.5 MCG/VILANTEROL 25 MCG INHALER INH SCH (08:10)
[2016-08-10] MEDS ORDERED: MIDAZOLAM HCL 5 MG/5 ML VIAL ONE (08:35)
[2016-08-10] MEDS ORDERED: fentaNYL CITRATE 250 MCG/5 ML AMP ONE (08:36)
--- NOTE | 2016-08-10 08:59 | HHI.PR ---
Subjective Remarks she is still miserable with abdomen pain. Objective Vitals heart reg lung cta abd tender epigastric/bs ext no edema Vital Signs Date Time Temp Pulse Resp B/P Pulse Ox O2 Delivery O2 Flow Rate FiO2 08/10/16 04:08 72 08/10/16 04:08 98.1 68 18 161/79 92 08/10/16 01:27 18 08/09/16 23:30 98.5 67 18 192/79 92 186/78 08/09/16 21:09 97.8 68 18 109/68 91 08/09/16 18:12 70 08/09/16 16:10 98.0 78 18 194/81 92 08/09/16 15:30 70 18 198/81 93 08/09/16 15:00 78 18 218/88 92 08/09/16 14:30 72 18 212/85 93 08/09/16 14:00 68 18 207/97 92 08/09/16 13:45 67 18 223/84 92 08/09/16 13:30 75 18 223/98 93 08/09/16 13:15 76 18 225/96 92 08/09/16 12:55 97.6 67 249/112 94 08/09/16 08/09/16 08/10/16 15:00 23:00 07:00 Intake Total 240 ml 926 ml Output Total 300 ml Balance 240 ml 626 ml Intake Oral 240 ml 0 ml IV Total 926 ml Output Urine Total 300 ml # Voids 2 1 # Bowel Movements 1 0 3 Result Diagram: 08/08/16 0525 08/09/16 0743 Imaging Last Impressions Chest X-Ray 08/04/16 7036 Signed Impressions: Service Date/Time: Thursday, August 04, 2016 18:19 - CONCLUSION: Mild cardiomegaly. Clear lungs. Otoniel Falcon Jr., MD A/P Problem List: (1) Abdominal pain Status: Acute Plan: Pt has had ongoing epigastric pain about 30min after meals for months. She is eating very little. very nauseated. Had egd and outpt CT recently and noted to have HH. Presented here with diarrhea after abx use and leukocytosis and started on flagyl. but c. diff negative. CTA abd/pelvis performed 08/07 to eval for JIM given htn and also for mesenteric dz of celiac/sma/alena to exclude mesenteric ischemia. ..result shows mod-severe stenosis of bilateral renal arteries. 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 also left iliac dz/dissection noted. GI and IR agree with mesenteric ischemia...attempted celiac angioplasty on 08/09 failed due to critical stenosis. re attempt today from different angle planned. I agree with Renal to not purse angioplasty of renal arteries (2) Diarrhea Status: Acute Plan: -Pt presented with severe diarrhea and on augmentin - improved - h/o chronic diarrhea and IBS, but now more severe than usual - C. Dif PCR --> negative - stool studies: O&P --> pending - stool C&S --> NO enteric pathogens - fecal leukocytes --> minimal - has been on PO flagyl with improvement of sx's and wbc (3) HTN (hypertension) Status: Acute Plan: - lisinopril, inderal, procardia XL - hydralazine causing flush sx's per pt ..will hold and monitor bp...if still high then consider stopping inderal and replacing with better bp controller. see above (4) Left-sided carotid artery disease Status: Acute Plan: - Pt to f/u with Dr. Gomez outpt (5) DM (diabetes mellitus) Status: Chronic Plan: - SSI (6) COPD (chronic obstructive pulmonary disease) Status: Chronic Plan: - duonebs prn Problem Qualifiers (1) Diarrhea: Qualified Code: A09 - Diarrhea of presumed infectious origin (2) HTN (hypertension): Qualified Code: I10 - Essential hypertension (3) DM (diabetes mellitus): Qualified Code: E11.8 - Type 2 diabetes mellitus with complication, without long-term current use of insulin (4) COPD (chronic obstructive pulmonary disease): Marlo Lyons MD Aug 10, 2016 08:59
[2016-08-10] MEDS: SODIUM CHLORIDE 0.9% FLUSH 10 ML FLUSH IV FLUSH SCH ×2 (09:00→20:05)
--- NOTE | 2016-08-10 09:34 | RADRPT ---
EXAM DATE/TIME: 08/09/2016 00:00 [facility] COMPARISON: CTA ABDOMEN & PELVIS W 3D RECON, August 07, 2016, 19:05. INDICATIONS : 76-year-old female with history of diabetes, hypertension, and at least 30 pack year smoking who pres ents with progressive postprandial abdominal pain to abdominal pain at rest. CTA exam demonstrates oc clusion of the SMA and severe stenosis of the celiac artery. Plan is for angiography and possible int ervention. Given the angulation of the mesenteric vessels, plan is for radial approach. MEDICAL HISTORY : HTN DM COPD CVA Hiatal hernia IBS Tachy Arthritis SURGICAL HISTORY : 1) Left cataract surgery 2) Hysterectomy ENCOUNTER: Initial ACUITY: 1 day PAIN SCORE: 7/10 LOCATION: Abdominal pain FLUORO TIME: 22.3 minutes IMAGE SERIES: 8 ACCESS SITE: Right Radial artery SEDATION TIME: 135 minutes CONTRAST: 1.) 75 cc Omnipaque (iohexol) 350 MEDICATION(S): 1.) 200 mcg fentanyl (Sublimaze) IV 2.) 9,000 units Heparin IV 3.) 600 mcg Nitroglycerine IV 4.) 6 mg Verapamil IV 5.) 4 mg midazolam (Versed) IV 6.) 30 mg Protamine IV DEVICE(S): 1.) Left subclavian artery 7mm x 19mm 150cm stent (balloon expanding) 2.) 3 x 19 mm celiac origin balloon angioplasty PROCEDURE : 1. Ultrasound-guided puncture of the access site. 2. Conscious sedation with continuous EKG and Oximetry monitoring. 3. Lateral abdominal aortogram 4. Selective catheter placement in the celiac artery with selective angiography 5. 3 mm balloon angioplasty of the celiac artery origin 6. Left subclavian angiography 7. Placement of 7 x 19 mm balloon expandable stent in the origin of the left subclavian artery The risks, benefits and alternatives to the procedure were explained and verbal and written consent w as obtained. The site was prepped in sterile fashion. Full sterile technique was used, including ca p, mask, sterile gloves and gown and a large sterile sheet. Hand hygiene and 2% chlorhexidine and/or betadine/alcohol prep was utilized per protocol for cutaneous antisepsis. The skin and subcutaneous tissues were infiltrated with local anesthetic solution. Patient passed a bottle test. Ultrasound evaluation of the left wrist demonstrate a patent left radia l artery. Single image was obtained and placed PACS archive. Mitral puncture needle was then advanced into the left radial artery under direct ultrasound guidance and subsequently exchanged for a slim 6 Welsh sheath. Next, 5 Welsh pigtail angiographic catheter was advanced into the proximal bowel aor ta and lateral abdominal aortogram was performed. This demonstrated severe to critical stenosis of th e celiac origin. Occluded SMA. Severe stenosis of the JAYLEEN origin with large caliber arc of [place]iol[place]. Se veral attempts to advance a wire into the SMA run successful. Following multiple additional attempts the celiac origin was successfully accessed with a Glidewire and a 4 Welsh slip catheter was advance d to the celiac artery. Angiography was performed confirming the findings. The celiac branches are ve ry small in caliber, likely related to very suboptimal flow. There is extensive diffuse disease invol ving the splenic artery. The 4 Welsh angiographic catheter was nearly occlusive and and there was si gnificant resistance to catheter advancement. Therefore, decision was made to pre-dilate the celiac a rtery origin with a small caliber balloon. A V18 wire were successfully advanced into the right hepat ic artery. However, multiple attempts at advancing 0.183 mm balloon were unsuccessful due to signific ant calcified plaque in the subclavian origin precluding advancement of rapid exchange balloon cathet er. Multiple attempts to advance the 6 Welsh guide catheter through the left subclavian artery were unsuccessful. Following an extended attempts, decision was made to proceed with left subclavian arter y stent placement to allow for continuation of the procedure. Catheter was advanced into the proximal left subclavian artery and angiography was performed. This confirmed severe stenosis of the left sub clavian artery origin secondary to bulky calcified plaque. 7 x 19 mm balloon expandable stent was the n deployed and followup angiography demonstrated excellent anatomic result. Following stent placement , the 3 mm angioplasty balloon was advanced into the origin of the celiac artery and inflated to 10 a tmospheres and overlapping fashion. Next, multiple attempts at advancing a [address] ents were unsuccessful due to rapid exchange catheter buckling in the subclavian and brachial arterie s secondary to resistance at the celiac origin. Unfortunately, the 6 Welsh guide sheath could not be advanced beyond the proximal subclavian artery primarily due to resistance encountered through the p artially placed stent. Following an extended attempt, decision was made to terminate the procedure at this time. Patient will be brought back for attempted femoral approach tomorrow. Wires and catheters were removed. Left radial artery hemostasis was obtained with a TR been device following removal of the sheath. Conscious sedation was performed with the prescribed dosages and duration as above in the presence of an independent trained radiology nurse to assist in the monitoring of the patient. EKG and oximetry remained stable throughout the procedure. CONCLUSION: 1. 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 2. Technically unsuccessful antegrade recanalization of the chronically occluded SMA. 3. 3 mm balloon angioplasty of the celiac origin. However, multiple attempts to advance a 5 mm balloo n expandable stent were unsuccessful due to inability to advance a guide catheter to the celiac origi n for appropriate support secondary to severe subclavian stenosis with freshly placed stent. 4. Severe left subclavian artery origin stenosis secondary to bulky calcified plaque. Antegrade inter vention attempt in the celiac artery necessitated stent placement. Excellent angiographic result foll owing 7 x 19 mm balloon-expandable stent placement in the subclavian origin. Plan: Repeat celiac/SMA intervention attempt utilizing femoral approach tomorrow. Kash Lund MD on August 10, 2016 at 9:12 Board Certified Radiologist. This report was verified electronically.
[2016-08-10] MEDS: NS + KCL 20 MEQ INJ 1,000 ML IV SCH ×2 (09:40→20:04)
[2016-08-10] MEDS ORDERED: NITROGLYCERIN 50 MG/10 ML VIAL IV ONE (10:23)
[2016-08-10] MEDS ORDERED: ALTEPLASE RECOMBINANT 2 MG VIAL ONE (10:23)
[2016-08-10] MEDS ORDERED: PROTAMINE SULFATE 50 MG/5 ML VIAL ONE (11:25)
[2016-08-10] MEDS ORDERED: HYDROmorphone HCL PF 2 MG/ML VIAL ONE (11:45)
[2016-08-10] MEDS: ENALAPRILAT 1.25 MG/ML VIAL IV PUSH PRN (12:19)
[2016-08-10] MEDS ORDERED: IOHEXOL 350 MG/ML 100 ML BTL (for RAD DIAG) OTHER ONE (12:22)
--- NOTE | 2016-08-10 12:36 | PD.RAD ---
Post Procedure Progress Note Pre Procedure Diagnosis: (1) Mesenteric artery insufficiency Post Procedure Diagnosis: (1) Mesenteric artery insufficiency Procedure Date: Aug 10, 2016 Supervising Radiologist: Kash Lnud Proceduralist/Assist: Ira Kern, RT(R)(), Claudia Limon RT(R)() Estimated blood loss: <10 ml Anesthesia: Conscious Sedation Plan of Activity Patient to Unit: Nursing Unit Patient Condition: Good Additional Comments: Placed 5x12mm celiac artery stent. JAYLEEN is less severely stenosed then originally thought (mild stenosis). See PACS Report for procedural detail/treatment Kash Lund MD Aug 10, 2016 12:36
[2016-08-10] MEDS ORDERED: CLOPIDOGREL 300 MG TAB PO ONE (13:00)
--- NOTE | 2016-08-10 16:48 | HHI.GIFU ---
Subjective Remarks Pt resting in bed, recently returned from procedure. She is still partially sedated. (Christy Torrez) Objective Vitals I&O Vital Signs Date Time Temp Pulse Resp B/P Pulse Ox O2 Delivery O2 Flow Rate FiO2 08/10/16 16:00 Room Air 08/10/16 15:00 94.8 65 28 164/72 94 08/10/16 14:45 63 16 178/79 94 08/10/16 14:15 58 16 177/82 95 08/10/16 13:45 66 18 178/72 94 08/10/16 13:15 65 18 184/82 18 08/10/16 12:45 68 16 189/82 95 08/10/16 12:30 68 18 186/83 96 08/10/16 12:15 71 16 189/82 94 08/10/16 12:00 97.5 72 20 192/79 91 08/10/16 08:00 Room Air 08/10/16 08:00 98.0 67 24 165/74 92 08/10/16 07:56 70 08/10/16 04:08 72 08/10/16 04:08 98.1 68 18 161/79 92 08/10/16 01:27 18 08/09/16 23:30 98.5 67 18 192/79 92 186/78 08/09/16 21:09 97.8 68 18 109/68 91 08/09/16 18:12 70 I/O 08/09/16 08/09/16 08/09/16 08/10/16 08/10/16 08/10/16 06:59 14:59 22:59 06:59 14:59 22:59 Intake Total 240 ml 926 ml Output Total 300 ml Balance 240 ml 626 ml Intake Oral 240 ml 0 ml IV Total 926 ml Output Urine Total 300 ml # Voids 2 1 # Bowel Movements 1 0 3 Imaging Last Impressions Aortography 08/09/16 0000 Signed Impressions: Service Date/Time: Tuesday, August 09, 2016 00:00 - CONCLUSION: 1. 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 2. Technically unsuccessful antegrade recanalization of the chronically occluded SMA. 3. 3 mm balloon angioplasty of the celiac origin. However, multiple attempts to advance a 5 mm balloon expandable stent were unsuccessful due to inability to advance a guide catheter to the celiac origin for appropriate support secondary to severe subclavian stenosis with freshly placed stent. 4. Severe left subclavian artery origin stenosis secondary to bulky calcified plaque. Antegrade intervention attempt in the celiac artery necessitated stent placement. Excellent angiographic result following 7 x 19 mm balloon-expandable stent placement in the subclavian origin. Plan: Repeat celiac/SMA intervention attempt utilizing femoral approach tomorrow. Kash Lund MD Renal Ultrasound 08/08/16 1312 Signed Impressions: Service Date/Time: Monday, August 08, 2016 14:37 - CONCLUSION: 1. Normal renal ultrasound examination. Symmetrical appearing kidneys without evidence for obstructive uropathy. Kash Lund MD Abdomen/Pelvis CT 08/07/16 1403 Signed Impressions: Service Date/Time: Sunday, August 07, 2016 19:05 - CONCLUSION: 1. Severe extensive atherosclerotic disease involving the abdominal aorta and visceral branch vessels. 2. Severe right and moderate to severe left renal artery stenosis exaggerated by bulky calcified plaque which can overestimate stenosis on CT scan. 3. 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 Significant involvement of two mesenteric branch vessels predisposes this patient to mesenteric ischemia although the bowel appear unremarkable on current exam. Clinical correlation is recommended. 4. 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 Patient would likely benefit from left iliac intervention if she has claudication symptoms. Kash Lund MD Chest X-Ray 08/04/16 1926 Signed Impressions: Service Date/Time: Thursday, August 04, 2016 18:19 - CONCLUSION: Mild cardiomegaly. Clear lungs. Otoniel Falcon Jr., MD Physical Exam HEENT: EOMI; normocephalic; atraumatic; no jaundice. CHEST: CTA CARDIAC: RRR ABDOMEN: Soft, diffuse TTP, no hepatosplenomegaly; bowel sounds are present in all four quadrants. EXTREMITIES: No clubbing, cyanosis, or edema. SKIN: Normal; no rash; no jaundice. SERVICING MANAGER: lethargic (Christy Torrez) Assessment and Plan Plan ASSESSMENT - dairrhea - on and off for 2 years, recent colonoscopy normal per pt other than diverticulosis. s/p stenting celiac artery CTA --> 1. Severe extensive atherosclerotic disease involving the abdominal aorta and visceral branch vessels. 2. Severe right and moderate to severe left renal artery stenosis exaggerated by bulky calcified plaque which can overestimate stenosis on CT scan. 3. 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 Significant involvement of two mesenteric branch vessels predisposes this patient to mesenteric ischemia although the bowel appear unremarkable on current exam. Clinical correlation is recommended. 4. 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 Patient would likely benefit from left iliac intervention if she has claudication symptoms. hemoccult neg, neg for cryptosporidium, cyclospora, giardia, c diff neg. - epigastric pain - unclear etiology, EGD 1 m ago normal per pt. CT as above. - leukocytosis - 23.8 on admission, currently 19.4 PLAN - supportive care - monitor HH - further recommendations to follow This pt seen by myself and Dr Long and this note is written on his behalf ( Christy Torrez) Physician Comments Seen and examined, abdominal pain secondary to mesenteric ischemia. IR and vascular surgery consulted. Normal endoscopies recently. GI will sign off. Reconsult as needed. Thank you (Duran Long MD) Christy Torrez Aug 10, 2016 16:48 Duran Long MD Aug 10, 2016 18:19
[2016-08-10] MEDS: ACETAMINOPHEN/HYDROcodone 325 MG/5 MG TAB PO PRN ×2 (17:41→21:50)
[2016-08-11] VITALS (12 sets, daily range): BP systolic 94–130; BP diastolic 54–74; PULSE 43–97; RESP 16–24; TEMP 97.3; O2SAT 0–99
[2016-08-11] MEDS ORDERED: SODIUM BICARBONATE 8.4% INJ 50 MEQ/50 ML SYR ONE ×3 (04:20→04:36)
--- NOTE | 2016-08-11 04:30 | HHI.PR ---
Addendum to Inpatient Note Addendum Reason: Additional Documentation Additional Information Received urgent call at appx 4 AM with report that pt was somnolent and with decreased responsiveness. Appeared to be "gasping for air". [facility] had already been called. I ordered ABG and labs. Case reviewed and discussed with Dr Link who is currently treating pt. Appears that she is quite acidotic. Will be transferring pt to Dr Link's service. He believes pt may be having necrotic bowel. I expressed gratitude to Dr Link for such prompt service and care provision. Would seem that pt's prognosis is quite guarded at best currently. Abdon Paulino MD PhD Aug 11, 2016 04:30
[2016-08-11] MEDS ORDERED: DEXTROSE 50% IN WATER 50 ML SYRINGE ONE (04:38)
[2016-08-11] MEDS ORDERED: SODIUM BICARBONATE 8.4% INJ 150 MEQ in DEXTROSE 5% IN WATE 1000ML INJ 1,000 ML IV SCH ×2 (04:45)
[2016-08-11 04:53] LABS: AUTOMATED NEUTROPHIL # 23.6 TH/MM3 (1.8-7.7); EOSINOPHIL # 0.2 TH/MM3 (0-0.4); EOSINOPHIL % 0.9 % (0.0-4.0); HEMATOCRIT 36.9 % (35.0-46.0); LYMPH % 2.3 % (9.0-44.0); LYMPHOCYTE # 0.6 TH/MM3 (1.0-4.8); MEAN CELL VOLUME 89.6 FL (80.0-100.0); MEAN CORPUSCULAR HEMOGLOBIN 27.9 PG (27.0-34.0); MEAN CORPUSCULAR HGB CONC 31.2 % (32.0-36.0); MONO % 8.1 % (0.0-8.0); NEUT % 88.7 % (16.0-70.0); PLATELET COUNT 167 TH/MM3 (150-450); RED BLOOD COUNT 4.11 MIL/MM3 (4.00-5.30); RED CELL DISTRIBUTION WIDTH 15.4 % (11.6-17.2); WHITE BLOOD COUNT 26.7 TH/MM3 (4.0-11.0)
[2016-08-11 04:55] LABS: BLOOD GAS BASE EXCESS -20.6 mmol/L (-2-2); BLOOD GAS CARBOXYHEMOGLOBIN 0.4 % (0-4); BLOOD GAS HCO3 7 mmol/L (22-26); BLOOD GAS O2 HGB SATURATION 95 % (90-100); BLOOD GAS OXYGEN CONTENT 15.5 Vol % (12.0-20.0); BLOOD GAS PCO2 22 mmHg (38-42); BLOOD GAS PO2 115 mmHg (61-120); BLOOD GAS TOTAL HGB 11.5 G/DL (12.0-16.0); TEMP CORR TO 98.6
[2016-08-11 04:55] LABS: HEMO FLAGS AUTO DIFF
[2016-08-11 04:56] LABS: CRITICAL VALUE YES; DRAW SITE LT BRACHIAL; LITER FLOW 4 L/M; NUMBER OF ARTERIAL PUNCTURES 1; OXYGEN DEVICE NASAL CANNULA; STAT YES
[2016-08-11 05:24] LABS: ANION GAP 21 MEQ/L (5-15); BICARBONATE 11.8 MEQ/L (21.0-32.0); BLOOD UREA NITROGEN 23 MG/DL (7-18); CHLORIDE 107 MEQ/L (98-107); GLOMERULAR FILTRATION RATE 35 ML/MIN (>89); MAGNESIUM 2.7 MG/DL (1.5-2.5); POTASSIUM 6.4 MEQ/L (3.5-5.1); SODIUM (NA) 140 MEQ/L (136-145)
--- NOTE | 2016-08-11 05:28 | RADRPT ---
EXAM DATE/TIME: 08/11/2016 04:53 [facility] COMPARISON: No previous studies available for comparison. INDICATIONS : Hypotensive, low blood sugar and lethargic. Evaluate for ischemic bowel. ORAL CONTRAST: No oral contrast ingested. RADIATION DOSE: 16.81 CTDIvol (mGy) MEDICAL HISTORY : Hernia, hiatal. Hypertension. SURGICAL HISTORY : Hysterectomy. Angioplasty. ENCOUNTER: Initial ACUITY: 1 day PAIN SCALE: 0/10 LOCATION: All quadrants. TECHNIQUE: Volumetric scanning of the abdomen and pelvis was performed. Using automated exposure control and ad justment of the mA and/or kV according to patient size, radiation dose was kept as low as reasonably achievable to obtain optimal diagnostic quality images. FINDINGS: There is subsegmental atelectasis in the both bases. The liver and spleen are normal in size and no focal defects are identified. The gallbladder and pancreas are unremarkable. No intrahepatic or extra hepatic ductal dilatation is seen. The adrenal glands and kidneys appear normal bilaterally. No hydro nephrosis or mass lesions are identified. There are findings suspicious for air within the gastric wa ll involving the fundus and body. Examination of the pelvis demonstrates no evidence of free fluid or pelvic mass. No abnormally enlarg ed inguinal or retroperitoneal lymph nodes are present. The bladder is unremarkable. CONCLUSION: 1. Findings characteristic of emphysematous gastritis. Jaguar Christina MD on August 11, 2016 at 5:22 Board Certified Radiologist. This report was verified electronically.
--- NOTE | 2016-08-11 05:35 | PD.CONS ---
HPI Service Critical Care Medicine Consult Requested By Primary Care Physician Marques العلي MD History of Present Illness 76-year-old unfortunate female was admitted because she has been having copious watery stools. She just had a little bit of blood in her stool the day prior to admission. She a night any fevers or chills. She has had cramping all over her abdomen which is mild and nonradiating. She denies any vomiting but doesn' t feel like eating much. She has been a little bit lightheaded and dizzy and has been weaker than normal. During her hospital stay she was on multiple antibiotics. 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 After multiple attempts the 5x12mm celiac artery stent was placed. JAYLEEN is less severely stenosed then originally thought (mild stenosis). 03/13/2016 early in the morning she developed altered mental status with poor responsiveness severe metabolic acidosis with lactate 16. She was emergently intubated for airway protection central line was placed, A-line was placed also. Patient is now transferred to critical care unit. The Gen. surgery was consulted for suspected ischemic abdomen. Case discussed with on-call general surgeon. Review of Systems ROS Unable to obtain patient is sedated and intubated Past Family Social History Allergies: Coded Allergies: Codeine (Verified Adverse Reaction, Unknown, NAUSEA, 07/29/16) Past Medical History Hypertension Diabetes mellitus COPD Remote CVA Past Surgical History Left cataract surgery Hysterectomy Reported Medications Reported Meds & Active Scripts Active Nifedipine ER 24 HR (Nifedipine) 60 Mg Tab 60 Mg PO DAILY Reported Anoro Ellipta Inh (Umeclidinium/Vilanterol) 62.5-25 Mcg/Act Aero 1 Puff INH DAILY Propranolol (Propranolol HCl) 20 Mg Tab 20 Mg PO Q12HR Ventolin Hfa 18 GM Inh (Albuterol Sulfate) 90 Mcg/Act Aer 2 Puff INH Q4-6H PRN Probiotic (Bacillus Coagulans) 1 Each Tab.chew Lisinopril 20 Mg Tab 20 Mg PO BID Lovastatin 20 Mg Tab 20 Mg PO BID Aspirin 81 (Aspirin) 81 Mg Tabdr 81 Mg PO DAILY Diphenoxylate-Atropine 2.5-0.025 Mg Tab 1 Tab PO Q8HR PRN Metformin (Metformin HCl) 500 Mg Tab 500 Mg PO BIDPC With meals Active Ordered Medications Current Medications Medications (Trade) Dose Ordered Sig/Reece Route PRN Reason Start Time Stop Time Status Last Admin Dose Admin Sodium Chloride (NS Flush) 2 ml UNSCH PRN IV FLUSH FLUSH AFTER USING IV ACCESS 08/04/16 17:45 Sodium Chloride (NS Flush) 2 ml BID IV FLUSH 08/04/16 21:00 08/10/16 20:05 Acetaminophen (Tylenol) 650 mg Q4H PRN PO TEMP > 100.4 08/04/16 17:45 Ondansetron HCl (Zofran Inj) 4 mg Q6H PRN IVP NAUSEA OR VOMITING 08/04/16 17:45 08/10/16 07:59 Temazepam (Restoril) 15 mg HS PRN PO INSOMNIA 08/04/16 17:45 Naloxone HCl (Narcan Inj) 0.4 mg UNSCH PRN IV SEE LABEL COMMENTS 08/04/16 17:45 Aspirin (Ecotrin Ec) 81 mg DAILY PO 08/05/16 09:00 08/10/16 08:03 Lisinopril (Prinivil) 20 mg BID PO 08/04/16 21:00 08/10/16 20:02 Propranolol HCl (Inderal) 20 mg Q12HR PO 08/04/16 21:00 08/10/16 20:02 Dextrose (D50w (Vial) Inj) 25 ml UNSCH PRN IV PUSH HYPOGLYCEMIA - SEE COMMENTS 08/04/16 18:00 08/11/16 03:51 Glucagon (Glucagon Inj) 1 mg UNSCH PRN OTHER HYPOGLYCEMIA-SEE COMMENTS 08/04/16 18:00 Calcium Carbonate (Tums Chew) 500 mg Q2H PRN CHEW dyspepsia 08/04/16 18:00 08/08/16 11:05 Clonidine (Catapres) 0.2 mg Q6H PRN PO SEE LABEL COMMENTS 08/04/16 20:00 08/10/16 01:32 Enalaprilat (Vasotec Inj) 1.25 mg Q6H PRN IV PUSH SYSTOLIC BP GREATER THAN 160 08/04/16 20:30 08/10/16 12:19 Nifedipine (Procardia Xl) 60 mg BID PO 08/05/16 21:00 08/10/16 20:02 Pantoprazole Sodium (Protonix) 40 mg DAILY PO 08/06/16 09:00 08/10/16 08:03 Simethicone 125 mg 125 mg Q8HR PO 08/07/16 22:00 08/10/16 20:02 Potassium Chloride/Sodium Chloride (NS + KCl 20 Meq Inj) 1,000 ml @ 84 mls/hr [id number] IV 08/08/16 10:00 08/10/16 20:04 Acetaminophen/ Hydrocodone Bitart ([place] 5-325 Mg) 1 tab Q4H PRN PO pain 3 and above 08/10/16 11:45 08/10/16 21:50 Clopidogrel Bisulfate 75 mg 75 mg ONCE ONCE PO 08/11/16 12:45 08/11/16 12:46 Sodium Bicarbonate 150 meq/Dextrose 1,150 ml @ 125 mls/hr Q9H12M IV 08/11/16 04:45 Midazolam HCl 100 ml @ 0 mls/hr TITRATE IV 08/11/16 06:15 Fentanyl Citrate (fentaNYL DRIP) 250 ml @ 0 mls/hr TITRATE IV 08/11/16 06:15 Clarithromycin (Biaxin 250 Mg/5 ml Liq) 250 mg BID PO 08/11/16 09:00 Amoxicillin 500 mg 500 mg TID PO 08/11/16 09:00 Metronidazole 100 ml @ 100 mls/hr Q6H IV 08/11/16 08:00 Fentanyl Citrate (fentaNYL DRIP) 250 ml @ 0 mls/hr TITRATE IV 08/11/16 07:00 UNV Family History Noncontributory Social History - former smoker, quit 20 yrs ago - NO alcohol - NO illicit street drugs Physical Exam Vital Signs Vital Signs Date Time Temp Pulse Resp B/P Pulse Ox O2 Delivery O2 Flow Rate FiO2 08/11/16 05:13 97 20 126/74 96 08/11/16 04:55 98 4.00 08/11/16 04:00 98 4.00 08/11/16 00:21 95 08/11/16 00:00 97.3 58 16 94/55 95 130/54 08/10/16 20:00 97.4 53 16 147/58 95 08/10/16 18:25 55 20 116/53 93 08/10/16 16:00 Room Air 08/10/16 15:00 94.8 65 28 164/72 94 08/10/16 14:45 63 16 178/79 94 08/10/16 14:15 58 16 177/82 95 08/10/16 13:45 66 18 178/72 94 08/10/16 13:15 65 18 184/82 18 08/10/16 12:45 68 16 189/82 95 08/10/16 12:30 68 18 186/83 96 08/10/16 12:15 71 16 189/82 94 08/10/16 12:00 97.5 72 20 192/79 91 08/10/16 08:00 Room Air 08/10/16 08:00 98.0 67 24 165/74 92 08/10/16 07:56 70 Physical Exam GENERAL: A lethargic elderly woman in no acute distress SKIN: Warm and dry. HEAD: Normocephalic. EYES: No scleral icterus. No injection or drainage. NECK: Supple, trachea midline. No JVD or lymphadenopathy. CARDIOVASCULAR: Regular rate and rhythm without murmurs, gallops, or rubs. RESPIRATORY: Breath sounds equal bilaterally. No accessory muscle use. GASTROINTESTINAL: Abdomen soft, non-tender, nondistended. MUSCULOSKELETAL: No cyanosis, or edema. BACK: Nontender without obvious deformity. No CVA tenderness. EXTREMITIES: No clubbing or cyanosis Laboratory Laboratory Tests Test 08/11/16 08/11/16 04:07 04:37 Blood Gas Puncture Site LT BRACHIAL Blood Gas Patient Temperature 98.6 Blood Gas HCO3 7 Blood Gas Base Excess -20.6 Blood Gas Oxygen Saturation 95 Arterial Blood pH 7.12 Arterial Blood Partial 22 Pressure CO2 Arterial Blood Partial 115 Pressure O2 Arterial Blood Oxygen Content 15.5 Arterial Blood 0.4 Carboxyhemoglobin Arterial Blood Methemoglobin 1.0 Blood Gas Hemoglobin 11.5 Oxygen Delivery Device NASAL CANNULA Blood Gas Liter Flow 4 White Blood Count 26.7 Red Blood Count 4.11 Hemoglobin 11.5 Hematocrit 36.9 Mean Corpuscular Volume 89.6 Mean Corpuscular Hemoglobin 27.9 Mean Corpuscular Hemoglobin 31.2 Concent Red Cell Distribution Width 15.4 Platelet Count 167 Mean Platelet Volume 8.0 Neutrophils (%) (Auto) 88.7 Lymphocytes (%) (Auto) 2.3 Monocytes (%) (Auto) 8.1 Eosinophils (%) (Auto) 0.9 Basophils (%) (Auto) 0.0 Neutrophils # (Auto) 23.6 Lymphocytes # (Auto) 0.6 Monocytes # (Auto) 2.2 Eosinophils # (Auto) 0.2 Basophils # (Auto) 0.0 CBC Comment AUTO DIFF Sodium Level 140 Potassium Level 6.4 Chloride Level 107 Carbon Dioxide Level 11.8 Anion Gap 21 Blood Urea Nitrogen 23 Creatinine 1.46 Estimat Glomerular Filtration 35 Rate Random Glucose 161 Lactic Acid Level 16.6 Calcium Level 8.6 Phosphorus Level 7.8 Magnesium Level 2.7 Albumin 2.2 Result Diagram: 08/11/16 0437 08/11/16 0437 Imaging Last 24 hours Impressions Abdomen/Pelvis CT 08/11/16 0000 Signed Impressions: Service Date/Time: Thursday, August 11, 2016 04:53 - CONCLUSION: 1. Findings characteristic of emphysematous gastritis. Jaguar Christina MD Assessment and Plan Assessment and Plan Respiratory failure - Intubated for airway protection - No weaning until acidosis resolves - Underlying severe metabolic acidosis - Continue mechanical ventilation - ABGs and chest x-ray a.m. Lactic acidosis - Ischemic bowel??? - Aggressive IV fluid resuscitation - Discussed with general surgeon branch operation evaluation manager - Prognosis is extremely poor - Already status post celiac artery stent Emphysematous gastritis - Clarithromycin, amoxicillin, Flagyl Acute kidney injury - With hyperkalemia - Due to above - Called to Dr. Conn nephrology at 7:13 AM - Insulin calcium gluconate sodium bicarbonate bicarbonate drip IV Hypotension - Due to above - Aggressive IV fluid resuscitation - Centerline - Arterial line - Levophed when necessary to keep map above 65 DVT GI prophylaxis - Teds SCDs - Subcutaneous heparin - IV Protonix Critical Care: The total critical care time was 45 minutes. Time to perform other separately billable procedures was not included in the critical care time. Tiago Link MD Aug 11, 2016 05:35
[2016-08-11 05:43] LABS: ALKALINE PHOSPHATASE 271 U/L (45-117); ALT (GPT) 2276 U/L (10-53); AST (GOT) 10710 U/L (15-37)
[2016-08-11] MEDS ORDERED: ETOMIDATE 20 MG/10 ML VIAL ONE (05:55)
[2016-08-11 06:10] LABS: BANDS 4 % (0-6); BASOPHILS 1 % (0-2); CORRECTED NUCLEATED RBC 3 /100 WBC (0-0); MYELOCYTES 1 % (0-0); NEUTROPHIL # MANUAL DIFF 23.5 TH/MM3 (1.8-7.7); POLYS (SEG NEUTROPHILS) 83 % (16-70); WBC DIFF SAMPLE 100
[2016-08-11 06:11] LABS: BURR CELLS 2+ (NORMAL); OVALOCYTES 2+ (NORMAL); PLATELET ESTIMATE SMEAR LOW (NORMAL); PLATELET MORPHOLOGY NORMAL (NORMAL); SCAN/DIFF FINAL DIFF MANUAL
[2016-08-11] MEDS ORDERED: MIDAZOLAM 100 MG/NS 100 ML DRIP Premix IV SCH (06:15)
[2016-08-11] MEDS ORDERED: fentaNYL 2,500 MCG/NS 250 ML IV SCH (06:15)
[2016-08-11] MEDS ORDERED: NOREPINEPHRINE-DEXTROSE DRIP 250 ML IV ONE (06:16)
[2016-08-11] MEDS ORDERED: SODIUM BICARBONATE 8.4% INJ 50 ML ONE ×2 (06:16→07:14)
--- NOTE | 2016-08-11 06:55 | PD.PROCEDR ---
Procedure Note Procedure Subclavian central line placement A time-out was completed verifying correct patient, procedure, site, positioning , and special equipment if applicable. The patient was placed in a dependent position appropriate for central line placement based on the vein to be cannulated. The patients right shoulder was prepped and draped in sterile fashion. 1% Lidocaine was used to anesthetize the surrounding skin area. A triple lumen 9-Turkmen Cordis catheter was introduced into the the right subclavian vein using the Seldinger technique. The catheter was threaded smoothly over the guide wire and appropriate blood return was obtained. Each lumen of the catheter was evacuated of air and flushed with sterile saline. The catheter was then sutured in place to the skin and a sterile dressing applied. Perfusion to the extremity distal to the point of catheter insertion was checked and found to be adequate. Estimated Blood Loss: 1ml The patient tolerated the procedure well and there were no complications. Tiago Link MD Aug 11, 2016 06:55
--- NOTE | 2016-08-11 06:55 | PD.PROCEDR ---
Procedure Note Procedure Endotracheal Intubation A time-out was completed verifying correct patient, procedure, site, positioning , and special equipment if applicable. The patient was placed in a flat position. Sedation was obtained using Etomidate 20mg. The patient was easily ventilated using an ambu bag. The [employer]/ MAC 4 BLADE was used and inserted into the oropharynx at which time there was a Grade 1 view of the vocal cords. A 8-spanish endotracheal tube was inserted and visualized going through the vocal cords. The stylette was removed. Colorimetric change was visualized on the CO2 meter. Breath sounds were heard in both lung myers equally. The endotracheal tube was placed at 23 cm, measured at the teeth. A chest x-ray was ordered to assess for pneumothorax and verify endotrachealtube placement. Estimated Blood Loss: 0 The patient tolerated the procedure well and there were no complications. Tiago Link MD Aug 11, 2016 06:54
--- NOTE | 2016-08-11 06:56 | PD.PROCEDR ---
Procedure Note Procedure Arterial line placement A time-out was completed verifying correct patient, procedure, site, positioning , and special equipment if applicable. Allens test was performed to ensure adequate perfusion. The patients right wrist was prepped and draped in sterile fashion. 1% Lidocaine was used to anesthetize the area. A 18G Arrow arterial line was introduced into the radial artery. The catheter was threaded over the guide wire and the needle was removed with appropriate pulsatile blood return. The catheter was then sutured in place to the skin and a sterile dressing applied. Perfusion to the extremity distal to the point of catheter insertion was checked and found to be adequate. Estimated Blood Loss: 1ml The patient tolerated the procedure well and there were no complications. Tiago Link MD Aug 11, 2016 06:55
[2016-08-11] MEDS ORDERED: fentaNYL DRIP 250 ML IV SCH (07:00)
[2016-08-11] MEDS ORDERED: EPINEPHrine HCL (1:10,000) 1 MG/10 ML SYRINGE ONE (07:10)
--- NOTE | 2016-08-11 07:12 | RADRPT ---
EXAM DATE/TIME: 08/11/2016 06:30 [facility] COMPARISON: CHEST SINGLE AP, August 04, 2016, 18:19. INDICATIONS : Central Line Placement MEDICAL HISTORY : None. SURGICAL HISTORY : None. ENCOUNTER: Subsequent ACUITY: 2 weeks PAIN SCORE: Non-responsive. LOCATION: Bilateral chest FINDINGS: A single view of the chest demonstrates the interval placement of a endotracheal tube approximately 1 .5 cm above the willie. Right subclavian central line in good position. Lungs remain clear.. The car diomediastinal contours are unremarkable. Osseous structures are intact. CONCLUSION: Endotracheal tube has now been placed. Lungs remain clear. Central line in excellent position. Uzair Cerna MD on August 11, 2016 at 7:10 Board Certified Radiologist. This report was verified electronically.
[2016-08-11] MEDS ORDERED: CALCIUM GLUCONATE 10% 1 GM/10 ML VIAL ONE (07:13)
[2016-08-11] MEDS ORDERED: LORazepam 2 MG/ML VIAL IV PUSH ONE (07:30)
[2016-08-11] MEDS ORDERED: MORPHINE SULFATE 8 MG/ML INJ IV PUSH ONE (07:30)
[2016-08-11 07:31] LABS: BLOOD GAS CARBOXYHEMOGLOBIN 0.9 % (0-4); BLOOD GAS HCO3 12 mmol/L (22-26); BLOOD GAS METHEMOGLOBIN 1.1 % (0-2); BLOOD GAS O2 HGB SATURATION 92 % (90-100); BLOOD GAS OXYGEN CONTENT 11.9 Vol % (12.0-20.0); BLOOD GAS PCO2 27 mmHg (38-42); BLOOD GAS PO2 82 mmHg (61-120); BLOOD GAS TOTAL HGB 9.1 G/DL (12.0-16.0); CRITICAL VALUE YES; OXYGEN DEVICE VENTILATOR; TEMP CORR TO 98.6; VENT SETTINGS PRVC14/500/1.0/+5
[2016-08-11] MEDS ORDERED: LORazepam 2 MG/ML VIAL ONE (07:31)
[2016-08-11] MEDS ORDERED: MORPHINE SULFATE 8 MG/ML INJ ONE (07:31)
[2016-08-11 07:32] LABS: DRAW SITE ART LINE; FIO2 100 %; NUMBER OF ARTERIAL PUNCTURES 0; STAT YES; ULNAR PULSE PRESENT
[2016-08-11] MEDS ORDERED: metroNIDAZOLE 500 MG INJ 100 ML IV SCH (08:00)
[2016-08-11] MEDS ORDERED: CLARITHROMYCIN 250 MG/5 ML PO SCH (09:00)
[2016-08-11] MEDS ORDERED: AMOXICILLIN (TRIHYDRATE) 500 MG CAP PO SCH (09:00)
--- NOTE | 2016-08-11 09:00 | HHI.DS ---
Summary Note Date of : Aug 11, 2016 Time Of : 08:54 Admission Date Aug 04, 2016 at 17:40 Admitting Diagnosis diarrhea, likely c diff colitis Diagnosis at Time of : (1) Abdominal pain ICD Code: R10.9 (2) Diarrhea ICD Code: R19.7 Diagnosis: Principal (3) HTN (hypertension) ICD Code: I10 Diagnosis: Principal (4) Left-sided carotid artery disease ICD Code: I77.9 Diagnosis: Principal (5) DM (diabetes mellitus) ICD Code: E11.9 Diagnosis: Principal (6) COPD (chronic obstructive pulmonary disease) ICD Code: J44.9 Diagnosis: Principal CBC/BMP: 08/11/16 0437 08/11/16 0437 Significant Findings Laboratory Tests Test 08/08/16 08/09/16 08/11/16 08/11/16 14:19 07:43 04:07 04:37 Lipase 69 U/L (73-393) Sodium Level 135 MEQ/L (136-145) Carbon Dioxide Level 19.9 MEQ/L 11.8 MEQ/L (21.0-32.0) (21.0-32.0) Anion Gap 16 MEQ/L (5-15) 21 MEQ/L (5-15) Creatinine 0.39 MG/DL 1.46 MG/DL (0.50-1.00) (0.50-1.00) Blood Gas HCO3 7 mmol/L (22-26) Blood Gas Base Excess -20.6 mmol/L (-2-2) Arterial Blood pH 7.12 (7.380-7.420) Arterial Blood Partial 22 mmHg (38-42) Pressure CO2 Blood Gas Hemoglobin 11.5 G/DL (12.0-16.0) White Blood Count 26.7 TH/MM3 (4.0-11.0) Hemoglobin 11.5 GM/DL (11.6-15.3) Mean Corpuscular Hemoglobin 31.2 % Concent (32.0-36.0) Neutrophils (%) (Auto) 88.7 % (16.0-70.0) Lymphocytes (%) (Auto) 2.3 % (9.0-44.0) Monocytes (%) (Auto) 8.1 % (0.0-8.0) Neutrophils # (Auto) 23.6 TH/MM3 (1.8-7.7) Lymphocytes # (Auto) 0.6 TH/MM3 (1.0-4.8) Monocytes # (Auto) 2.2 TH/MM3 (0-0.9) Neutrophils % (Manual) 83 % (16-70) Lymphocytes % 6 % (9-44) Neutrophils # (Manual) 23.5 TH/MM3 (1.8-7.7) Myelocytes 1 % (0-0) Nucleated Red Blood Cells 3 /100 WBC (0-0) Platelet Estimate LOW (NORMAL) Ovalocytes 2+ (NORMAL) Deysi Cells 2+ (NORMAL) Potassium Level 6.4 MEQ/L (3.5-5.1) Blood Urea Nitrogen 23 MG/DL (7-18) Estimat Glomerular Filtration 35 ML/MIN (>89) Rate Random Glucose 161 MG/DL (74-106) Lactic Acid Level 16.6 mmol/L (0.4-2.0) Phosphorus Level 7.8 MG/DL (2.5-4.9) Magnesium Level 2.7 MG/DL (1.5-2.5) Aspartate Amino Transf 84277 U/L (AST/SGOT) (15-37) Alanine Aminotransferase 2276 U/L (ALT/SGPT) (10-53) Alkaline Phosphatase 271 U/L (45-117) B-Type Natriuretic Peptide 409 PG/ML (0-100) Total Protein 4.9 GM/DL (6.4-8.2) Albumin 2.2 GM/DL (3.4-5.0) Test 08/11/16 07:10 Blood Gas HCO3 12 mmol/L (22-26) Blood Gas Base Excess -14.0 mmol/L (-2-2) Arterial Blood pH 7.27 (7.380-7.420) Arterial Blood Partial 27 mmHg (38-42) Pressure CO2 Arterial Blood Oxygen Content 11.9 Vol % (12.0-20.0) Blood Gas Hemoglobin 9.1 G/DL (12.0-16.0) Imaging Last 24 hours Impressions Abdomen/Pelvis CT 08/11/16 0000 Signed Impressions: Service Date/Time: Thursday, August 11, 2016 04:53 - CONCLUSION: 1. Findings characteristic of emphysematous gastritis. Jaguar Christina MD Hospital Course 76-year-old unfortunate female was admitted because she has been having copious watery stools. She just had a little bit of blood in her stool the day prior to admission. She a night any fevers or chills. She has had cramping all over her abdomen which is mild and nonradiating. She denies any vomiting but doesn' t feel like eating much. She has been a little bit lightheaded and dizzy and has been weaker than normal. During her hospital stay she was on multiple antibiotics. 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 After multiple attempts the 5x12mm celiac artery stent was placed. JAYLEEN is less severely stenosed then originally thought (mild stenosis). 03/13/2016 early in the morning she developed altered mental status with poor responsiveness severe metabolic acidosis with lactate 16. She was emergently intubated for airway protection central line was placed, A-line was placed also. Patient is now transferred to critical care unit. The Gen. surgery was consulted for suspected ischemic abdomen. Case discussed with on-call general surgeon. 08/11/16- Per my colleague, Dr. Link the prognosis adipose status update was provided to the family. Family decided comfort care measures only. The tracheal tube was removed. With the family at bedside comfort care measures were initiated. Time of 0854 Lucía Holm MD Aug 11, 2016 09:00
--- NOTE | 2016-08-11 12:04 | RADRPT ---
EXAM DATE/TIME: 08/10/2016 09:10 [place] COMPARISON: CTA ABDOMEN & PELVIS W 3D RECON, August 07, 2016, 19:05. ANGIOGRAM, SELECT + VESSEL, August 09, 2016, 0: 00. INDICATIONS : 76-year-old female with history of hypertension, diabetes and at least 30 pack year smoking who prese nts with progressive mesenteric ischemia symptoms to now significant resting ischemia abdominal pain. 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 Radial artery approach mesenteric angiography and at tempted celiac stent placement was performed yesterday. The celiac artery could only be predilated wi th 3 mm balloon. 5 mm stent could not be advanced into the celiac artery as a 6 [place] guide catheter could not be advanced beyond a severe left subclavian stenosis to allow for sufficient support. Ther efore, patient was rescheduled for attempted femoral approach celiac intervention. We are concerned w ith SMA intervention as there is likely thrombus associated with the occlusion and there is concern f or distal embolization with stent placement attempt. Additionally, the lateral aortogram demonstrated possible severe JAYLEEN origin stenosis. Therefore, plan is to also perform JAYLEEN angiography. MEDICAL HISTORY : History of CVA, TIA, HTN, DM, left carotid artery disease, SMA occlusion, celiac stenosis, IBS, asths ma, COPD, hernia. SURGICAL HISTORY : History of left cataract removal, hysterectomy, left arm angiogram with subclavian stent placement. ENCOUNTER: Initial ACUITY: 4-6 days PAIN SCORE: 8/10 LOCATION: upper abdomen FLUORO TIME: 20.4 minutes IMAGE SERIES: 17 ACCESS SITE: Right Femoral artery SEDATION TIME: 140 minutes CONTRAST: 1.) 95 cc Omnipaque (iohexol) 350 MEDICATION(S): 1.) 5 mg midazolam (Versed) IV 2.) 250 mcg fentanyl (Sublimaze) IV 3.) 1 mg hydromorphone (Dilaudid) IV 4.) 9000 units Heparin IV 5.) 30 mg Protamine IV 6.) 12 mg TPA IART DEVICE(S): 1.) celiac artery 5mm x 12mm x 80cm stent (balloon expanding) ev3 Visi-Pro 2.) Right common femoral artery 6Fr Angio-Seal PROCEDURE : 1. Ultrasound-guided puncture of the access site. 2. Conscious sedation with continuous EKG and Oximetry monitoring. 3. Selective catheter placement in the celiac artery with selective angiography 4. Placement of 5 x 12 mm balloon expandable stent in the origin of the celiac artery 5. Intra-arterial administration of TPA in the common hepatic artery 6. Selective catheter placement in the JAYLEEN with selective angiography in multiple obliquities 7. Pelvic angiography in multiple obliquities The risks, benefits and alternatives to the procedure were explained and verbal and written consent w as obtained. The site was prepped in sterile fashion. Full sterile technique was used, including ca p, mask, sterile gloves and gown and a large sterile sheet. Hand hygiene and 2% chlorhexidine and/or betadine/alcohol prep was utilized per protocol for cutaneous antisepsis. The skin and subcutaneous tissues were infiltrated with local anesthetic solution. With ultrasound and fluoroscopic guidance the selected artery was punctured and a vascular sheath was placed. 4 [place] catheter was used to select the celiac artery and a Glidewire was advanced into the right hepatic artery. Guidewire was up skull exchanged for a Monk wire and sheath was exchanged for a 6 [place] Ansell 2 sheath which was advanced to the celiac origin. Patient was heparinized with 800 0 units IV heparin. Angiography performed through the sheath for stent placement demonstrated filling defects in the left gastric artery and common hepatic arteries. This was felt to be primarily due to nearly occlusive catheters and sheath in the critically stenosed celiac artery. 5 x 12 mm balloon ex pandable stent was then deployed in the celiac origin. Followup angiography demonstrated a well-posit ioned celiac artery stent with a partially occlusive thrombus in the common hepatic artery, gastroduo denal artery, and proper hepatic artery with occlusion of the right hepatic artery. There is also non -flow limiting small amount of thrombus noted in the left gastric artery. Therefore, a 4 [place] glide catheter was advanced into the common hepatic artery. 200 mcg of NTG was administered and followed b y 6 mg of TPA. Following 15 minute dwell time, followup angiography was performed. This demonstrated significantly improved flow in the common hepatic artery and left gastric arteries. Residual thrombus was noted in the left hepatic and origin of the right hepatic artery. Therefore, an additional 6 mg of TPA and 200 mcg of NTG were administered and felt to be sufficient in conjunction with improved ce liac flow for resolution of small amount of nonocclusive residual thrombus in the common hepatic thor ry and origin of the GDA. The wires and catheters were then removed. The JAYLEEN was subsequently selecte d with a 4 [place] catheter. JAYLEEN angiography was performed in multiple obliquities. This demonstrated mild to moderate stenosis of the JAYLEEN origin secondary to the bulky calcified plaque with brisk flow t hrough an enlarged marginal artery. Given the very tenuous mesenteric circulation, JAYLEEN intervention f or inaz-wl-badvyvph stenosis was not performed. Sheath was then retracted and flush catheter placed i n the distal abdominal aorta and pelvic angiography was performed in multiple obliquities. This does confirm findings on CTA exam. 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 Otherwise, no significant flow-limiting stenosis wa s noted in the iliac or femoral arteries. Dimension was deferred at this time given relatively mild l eft buttock claudication symptoms. This will be reevaluated on an outpatient basis once patient's mes enteric ischemia has improved. The puncture site was closed with 6 [place] Angio-Seal and hemostasis was obtained. The patient tolera wali the procedure well and there were no immediate post procedure complications. Conscious sedation was performed with the prescribed dosages and duration as above in the presence of an independent trained radiology nurse to assist in the monitoring of the patient. EKG and oximetry remained stable throughout the procedure. CONCLUSION: 1. Technically challenging left celiac artery 5 mm balloon expandable stent placement, as above. Unce rtain if celiac artery intervention will be sufficient to treat patient's critical mesenteric ischemi a given length of SMA occlusion and lack of obvious collateral flow from GDA branches on celiac angio graphy. It is hoped that patient will develop pancreaticoduodenal collateral flow to the SMA, in time , with improved celiac flow. 2. Mild to moderate stenosis of the JAYLEEN origin with a prominent marginal artery supplying SMA territo ry. Intervention was not performed as any potential complication would likely result in mesenteric in farction in this patient with critical mesenteric ischemia. 3. Pelvic angiography confirms CTA findings of left common iliac artery dissection with associated mo derate stenosis. Intervention is deferred at this time given mild claudication symptoms and acute cri tical mesenteric ischemia. Kash Lund MD on August 11, 2016 at 11:20 Board Certified Radiologist. This report was verified electronically.
[2016-08-11] MEDS ORDERED: CLOPIDOGREL 75 MG TAB PO ONE (12:45)
--- NOTE | 2016-08-11 13:13 | PD.CAR.PN ---
CVT Progress Note Subjective/Hospital Course: 76-year-old female presents with abdominal pain and watery diarrhea. Patient stated that she has had pain for a long time and over 6 months and now she is about 4 days of diarrhea. Patient had colonoscopy and upper endoscopy about a month ago but does not remember if there were any abnormalities She currently underwent workup and found to have massively calcified abdominal vessels including near occlusion of the celiac axis and occlusion of superior mesenteric artery. In addition patient has inflow stenosis in the left leg consisting of a hemodynamically significant stenosis the common iliac artery and dissection of the external iliac artery. Based on her findings I was consulted for vascular intervention should that become necessary or indicated. As far as the left leg inflow is concerned at this point this is asymptomatic and patient's leg is viable and therefore this should be on the back burner for the time being and the priority should be given to resolution of abdominal vascular situation. I discussed the case at length with interventional radiology and was present during the transfemoral stenting of the celiac axis Objective: Vital Signs Date Time Temp Pulse Resp B/P Pulse Ox O2 Delivery O2 Flow Rate FiO2 08/11/16 07:42 0 Room Air 21 08/11/16 07:34 0 100 08/11/16 06:15 99 100 08/11/16 05:13 97 20 126/74 96 08/11/16 04:55 98 4.00 08/11/16 04:16 86 08/11/16 04:00 91 24 124/63 98 08/11/16 04:00 98 4.00 08/11/16 03:53 53 08/11/16 03:45 96 Nasal Cannula 5.00 08/11/16 03:16 43 08/11/16 03:00 Nasal Cannula 2.00 08/11/16 00:21 95 08/11/16 00:14 54 08/11/16 00:00 97.3 58 16 94/55 95 130/54 08/10/16 20:00 97.4 53 16 147/58 95 08/10/16 18:25 55 20 116/53 93 08/10/16 16:00 Room Air 08/10/16 15:00 94.8 65 28 164/72 94 08/10/16 14:45 63 16 178/79 94 08/10/16 14:15 58 16 177/82 95 08/10/16 13:45 66 18 178/72 94 08/10/16 13:15 65 18 184/82 18 Labs: Laboratory Tests Test 08/11/16 08/11/16 08/11/16 08/11/16 04:07 04:37 05:45 07:10 Blood Gas Puncture Site LT BRACHIAL ART LINE Blood Gas Patient Temperature 98.6 98.6 Blood Gas HCO3 7 mmol/L 12 mmol/L (22-26) (22-26) Blood Gas Base Excess -20.6 mmol/L -14.0 mmol/L (-2-2) (-2-2) Blood Gas Oxygen Saturation 95 % (90-100) 92 % (90-100) Arterial Blood pH 7.12 7.27 (7.380-7.420) (7.380-7.420) Arterial Blood Partial 22 mmHg (38-42) 27 mmHg (38-42) Pressure CO2 Arterial Blood Partial 115 mmHg 82 mmHg Pressure O2 (61-120) (61-120) Arterial Blood Oxygen Content 15.5 Vol % 11.9 Vol % (12.0-20.0) (12.0-20.0) Arterial Blood 0.4 % (0-4) 0.9 % (0-4) Carboxyhemoglobin Arterial Blood Methemoglobin 1.0 % (0-2) 1.1 % (0-2) Blood Gas Hemoglobin 11.5 G/DL 9.1 G/DL (12.0-16.0) (12.0-16.0) Oxygen Delivery Device NASAL CANNULA VENTILATOR Blood Gas Liter Flow 4 L/M White Blood Count 26.7 TH/MM3 (4.0-11.0) Red Blood Count 4.11 MIL/MM3 (4.00-5.30) Hemoglobin 11.5 GM/DL (11.6-15.3) Hematocrit 36.9 % (35.0-46.0) Mean Corpuscular Volume 89.6 FL (80.0-100.0) Mean Corpuscular Hemoglobin 27.9 PG (27.0-34.0) Mean Corpuscular Hemoglobin 31.2 % Concent (32.0-36.0) Red Cell Distribution Width 15.4 % (11.6-17.2) Platelet Count 167 TH/MM3 (150-450) Mean Platelet Volume 8.0 FL (7.0-11.0) Neutrophils (%) (Auto) 88.7 % (16.0-70.0) Lymphocytes (%) (Auto) 2.3 % (9.0-44.0) Monocytes (%) (Auto) 8.1 % (0.0-8.0) Eosinophils (%) (Auto) 0.9 % (0.0-4.0) Basophils (%) (Auto) 0.0 % (0.0-2.0) Neutrophils # (Auto) 23.6 TH/MM3 (1.8-7.7) Lymphocytes # (Auto) 0.6 TH/MM3 (1.0-4.8) Monocytes # (Auto) 2.2 TH/MM3 (0-0.9) Eosinophils # (Auto) 0.2 TH/MM3 (0-0.4) Basophils # (Auto) 0.0 TH/MM3 (0-0.2) CBC Comment AUTO DIFF Differential Total Cells 100 Counted Neutrophils % (Manual) 83 % (16-70) Band Neutrophils % 4 % (0-6) Lymphocytes % 6 % (9-44) Monocytes % 5 % (0-8) Basophils % 1 % (0-2) Neutrophils # (Manual) 23.5 TH/MM3 (1.8-7.7) Myelocytes 1 % (0-0) Nucleated Red Blood Cells 3 /100 WBC (0-0) Differential Comment FINAL DIFF MANUAL Platelet Estimate LOW (NORMAL) Platelet Morphology Comment NORMAL (NORMAL) Ovalocytes 2+ (NORMAL) Deysi Cells 2+ (NORMAL) Sodium Level 140 MEQ/L (136-145) Potassium Level 6.4 MEQ/L (3.5-5.1) Chloride Level 107 MEQ/L (98-107) Carbon Dioxide Level 11.8 MEQ/L (21.0-32.0) Anion Gap 21 MEQ/L (5-15) Blood Urea Nitrogen 23 MG/DL (7-18) Creatinine 1.46 MG/DL (0.50-1.00) Estimat Glomerular Filtration 35 ML/MIN (>89) Rate Random Glucose 161 MG/DL (74-106) Lactic Acid Level 16.6 mmol/L (0.4-2.0) Calcium Level 8.6 MG/DL (8.5-10.1) Phosphorus Level 7.8 MG/DL (2.5-4.9) Magnesium Level 2.7 MG/DL (1.5-2.5) Total Bilirubin 1.0 MG/DL (0.2-1.0) Aspartate Amino Transf 01117 U/L (AST/SGOT) (15-37) Alanine Aminotransferase 2276 U/L (ALT/SGPT) (10-53) Alkaline Phosphatase 271 U/L (45-117) B-Type Natriuretic Peptide 409 PG/ML (0-100) Total Protein 4.9 GM/DL (6.4-8.2) Albumin 2.2 GM/DL (3.4-5.0) Nasal Screen MRSA (PCR) MRSA NOT DETECTED (NOT DETECT) Blood Gas Ventilator Setting PRVC14/500/1.0/+5 Blood Gas Inspired Oxygen 100 % Result Diagram: 08/11/16 0437 08/11/167 Aldo Mooney MD Aug 11, 2016 13:13 Aldo Mooney MD Aug 11, 2016 13:13 Result Diagram: 08/11/16 0437 08/11/16 Aldo Pompa MD Aug 11, 2016 13:13
== END 2016-08-11 08:54 | disposition expired | DRG 356 ==
LOC: NEPC 14:31 → NEDA 17:40 → N04B 20:53 → HIME 08-11 05:15
PROVIDERS: ADMIT Hospitalist; ATTEND Hospitalist
PROC: 04713ZZ Dilation of Celiac Artery, Percutaneous Approach (ICD-10-PCS; 2016-08-09)
PROC: 03743DZ Dilation of Left Subclavian Artery with Intraluminal Device, Percutaneous Approach (ICD-10-PCS; 2016-08-09)
PROC: B4101ZZ Fluoroscopy of Abdominal Aorta using Low Osmolar Contrast (ICD-10-PCS; 2016-08-09)
PROC: 04713DZ Dilation of Celiac Artery with Intraluminal Device, Percutaneous Approach (ICD-10-PCS; principal; 2016-08-11)
PROC: 3E03317 Introduction of Other Thrombolytic into Peripheral Vein, Percutaneous Approach (ICD-10-PCS; 2016-08-11)
PROC: 0BH17EZ Insertion of Endotracheal Airway into Trachea, Via Natural or Artificial Opening (ICD-10-PCS; 2016-08-11)
PROC: 03HY32Z Insertion of Monitoring Device into Upper Artery, Percutaneous Approach (ICD-10-PCS; 2016-08-11)
PROC: 02HV33Z Insertion of Infusion Device into Superior Vena Cava, Percutaneous Approach (ICD-10-PCS; 2016-08-11)
DX: K55.069 Acute infarction of intestine, part and extent unspecified (principal); J96.90 Respiratory failure, unspecified, unspecified whether with hypoxia or hypercapnia; I77.72 Dissection of iliac artery; E87.2 Acidosis; N17.9 Acute kidney failure, unspecified; I77.4 Celiac artery compression syndrome; Z51.5 Encounter for palliative care; I11.9 Hypertensive heart disease without heart failure; E11.8 Type 2 diabetes mellitus with unspecified complications; J44.9 Chronic obstructive pulmonary disease, unspecified; M19.90 Unspecified osteoarthritis, unspecified site; K58.9 Irritable bowel syndrome, unspecified; E86.0 Dehydration; E66.9 Obesity, unspecified; E78.5 Hyperlipidemia, unspecified; I70.1 Atherosclerosis of renal artery; K57.90 Diverticulosis of intestine, part unspecified, without perforation or abscess without bleeding; I70.0 Atherosclerosis of aorta; I70.8 Atherosclerosis of other arteries; E87.5 Hyperkalemia; K29.70 Gastritis, unspecified, without bleeding; F40.240 Claustrophobia; F41.9 Anxiety disorder, unspecified; Z66 Do not resuscitate; Z79.84 Long term (current) use of oral hypoglycemic drugs; Z68.32 Body mass index [BMI] 32.0-32.9, adult; Z86.73 Personal history of transient ischemic attack (TIA), and cerebral infarction without residual deficits; Z87.891 Personal history of nicotine dependence; Z88.5 Allergy status to narcotic agent
CPT/HCPCS: 31500; 36217; 36245; 36246; 36556; 36600; 37211; 37236; 37246; 71010; 74174; 74176; 75710; 75726; 75774; 76775; 76937; 80048; 80053; 82272; 82805; 82948; 83605; 83690; 83735; 83880; 84100; 85007; 85025; 85027; 87040; 87205; 87207; 87328; 87329; 87493; 87506; 87641; 93005; 94002; 94664; 96374; C1725; C1760; C1769; C1874; C1876; C1887; C1894; C9113; J0171; J0610; J1170; J1644; J1815; J2060; J2250; J2270; J2405; J2720; J2997; J3010; J3480; J7030; Q9963; Q9967